=== PATIENT | female | born 1975 | race Caucasian/White ===

== ENCOUNTER 2016-11-19 11:35 | Emergency (ER) | payer OTHER, SELFPAY ==
[2016-11-19] MEDS ORDERED: TORAdol 30 mg Injection IM ONE (11:48)
[2016-11-19] MEDS ORDERED: TORAdol 30 mg Injection ONE (11:56)
--- NOTE | 2016-11-19 12:16 | ERPHSYRPT ---
- History of Present Illness Time Seen by Provider: 11/19/16 11:42 Source: patient, family Exam Limitations: no limitations Patient Subjective Stated Complaint: pt co pain to right knee for a couple days , she states that knee gave out and fell, she denies any injury from fall, pt arrived per w/c Triage Nursing Assessment: pt alert and in no distress, resp easy , able to transfer to bed, pain to lower part of knee, no swelling or redness Physician History: the patient was walking this am when her right knee gave out; she did not fall as she caught herself; she has chronic right knee pain from osteoarthritis; no known injuyr; now some pain in right hip as well; no other injury or complaints ; right handed Method of Injury: twisted Occurred: just prior to arrival, this morning Quality: constant, aching Severity of Pain-Max: severe Severity of Pain-Current: moderate Lower Extremities Pain: hip: right, knee: right Modifying Factors: Improves With: immobilization (helps), movement (affravates KNee > hip) Associated Symptoms: unable to bear weight (without pain) Allergies/Adverse Reactions: No Known Drug Allergies Allergy (Verified 11/19/16 11:49) Home Medications: Metformin HCl 500 mg [Glucophage 500 MG] 500 mg PO BID 04/11/13 [History] Glyburide [Diabeta] 2.5 mg PO DAILY 05/08/15 [History] Metoprolol Tartrate 25 mg [Lopressor 25MG Tab] 25 mg PO DAILY 09/09/15 [ History] Simvastatin 40 mg [Zocor 40 mg] 40 mg PO DAILY 09/09/15 [History] Hx Tetanus, Diphtheria Vaccination/Date Given: Yes Hx Influenza Vaccination/Date Given: No Hx Pneumococcal Vaccination/Date Given: No - Review of Systems Constitutional: No Symptoms Eyes: No Symptoms Ears, Nose, & Throat: No Symptoms Respiratory: No Cough, No Dyspnea, No Wheezing Cardiac: No Chest Pain, No Palpitations Abdominal/Gastrointestinal: No Abdominal Pain, No Nausea, No Diarrhea Genitourinary Symptoms: No Symptoms Musculoskeletal: Injury, Joint Pain (right knee) Skin: No Symptoms Neurological: No Symptoms Psychological: No Symptoms Endocrine: Polyuria, Polydipsia, No Goiter Hematologic/Lymphatic: No Symptoms Immunological/Allergic: No Symptoms - Past Medical History Pertinent Past Medical History: Yes Neurological History: No Pertinent History ENT History: No Pertinent History Cardiac History: No Pertinent History Respiratory History: No Pertinent History Endocrine Medical History: Diabetes Type II Musculoskeletal History: Arthritis GI Medical History: No Pertinent History History: Other Psycho-Social History: Anxiety, Depression Female Reproductive Disorders: No Pertinent History Other Medical History: URETHERAL DIVERTICULITIS-SEES A PHYSICIAN IN [facility] FOR THIS. - Past Surgical History Past Surgical History: Yes Neuro Surgical History: No Pertinent History Cardiac: Cardiac Catheterization Respiratory: No Pertinent History Gastrointestinal: Bowel Surgery, Cholecystectomy Genitourinary: Other Musculoskeletal: No Pertinent History Female Surgical History: No Pertinent History Other Surgical History: urethral diverticulistis - Social History Smoking Status: Current some day smoker How long have you smoked: 15 Exposure to second hand smoke: Yes Alcohol Use: Socially Drug Use: none Patient Lives Alone: No Significant Family History: diabetes, hypertension - Female History Hx Last Menstrual Period: 6 years Hx Now: No - Nursing Vital Signs Nursing Vital Signs: Initial Vital Signs Temperature 97.2 F Temperature Source Oral Pulse Rate 97 Respiratory Rate 18 Blood Pressure [Right Arm] 102/76 Pain Intensity 6 - Physical Exam General Appearance: moderate distress (pain right knee), alert, obese (mild) Eyes, Ears, Nose, Throat Exam: normal ENT inspection, TMs normal, pharynx normal , moist mucous membranes Neck Exam: normal inspection, non-tender, supple, full range of motion, No meningismus, No JVD Cardiovascular/Respiratory Exam: chest non-tender, normal breath sounds, regular rate/rhythm, heart sounds normal, no JVD, no M/R/G, no respiratory distress Gastrointestinal/Abdominal Exam: non-tender, soft, no organomegaly Back Exam: normal inspection, normal range of motion, No CVA tenderness Hips Exam: right: soft tissue tenderness (mild lateral only), left: non-tender, bilateral: normal inspection, normal range of motion, no evidence of injury Legs Exam: right leg: soft tissue tenderness (post high), left leg: non-tender, bilateral leg: normal inspection, normal range of motion, no evidence of injury , other (no shortening or external roataion) Knees Exam: right knee: bone tenderness (anterior and lateral), pain, soft tissue tenderness, left knee: non-tender, bilateral knee: normal inspection, normal range of motion, no evidence of injury Ankle Exam: bilateral ankle: non-tender, normal inspection, normal range of motion, no evidence of injury Foot Exam: bilateral foot: non-tender, normal inspection, normal range of motion , no evidence of injury DTR - Lower Extremities Exam: knee (R): 4+, knee (L): 4+ Neuro/Tendon Exam: normal sensation, normal motor functions, normal tendon functions, responds to pain, no evidence tendon injury Mental Status Exam: alert, oriented x 3, cooperative Skin Exam: normal color, warm, dry, No rash SpO2 Interpretation: normal SpO2: 98 Oxygen Delivery: Room Air Procedures - Splinting Location of Splint: Right, Knee Type of Splint: Other (knee immobilyzer) Splint Applied By: ED Nurse Pre-Proc Neuro Vasc Exam: normal Post-Proc Neuro Vasc Exam: neurovascular intact - Course Nursing assessment & vital signs reviewed: Yes Ordered Tests: Active Orders 24 hr Category Date Time Status Cold Application STAT Care 11/19/16 11:48 Active Crutches STAT Care 11/19/16 12:09 Ordered Re-Check Vital Signs STAT Care 11/19/16 11:48 Active Splint STAT Care 11/19/16 12:09 Ordered KNEE (3 VIEWS) Stat Exams 11/19/16 11:48 Ordered Medication Summary Discontinued Medications Generic Name Dose Route Start Last Admin Trade Name Aryan PRN Reason Stop Dose Admin Ketorolac Tromethamine 60 mg 11/19/16 11:48 11/19/16 12:00 Toradol 30 Mg Injection IM 11/19/16 11:49 60 mg STAT ONE Administration Ketorolac Tromethamine Confirm 11/19/16 11:56 Toradol 30 Mg Injection Administered 11/19/16 11:57 Dose 60 mg .ROUTE .STK-MED ONE - Progress Progress: improved (after meds), re-examined (after xr) Progress Note: 11/19/16 12:17 reviewed xr findings and results; treatment plan and instructions given Counseled pt/family regarding: diagnosis, rad results, smoking cessation - Departure Time of Disposition: 12:18 Departure Disposition: Home Clinical Impression: Strain of right knee Condition: Stable Critical Care Time: No Instructions: Knee Sprain Additional Instructions: Acute Sprain Instructions lower extremity; R.I.C.E.; wear splint/immobilyzer as directed; observe for neuro-vascular compromise ( change in color; increased pain; cold to touch); Use crutches, walker, cane as directed. FU LMD/ specialist as directed; call for appointment as directed; Return if problems; Take meds as prescribed. Follow-up with family doctor as directed. Call for appointment. Return if any problems. If you smoke please stop. Call or follow up with your family doctor for assistance if you need it to stop. Please wear your seatbelt when driving. Have a nice day. Thank you for allowing us to participate in your care today. :o) Dr Bert Coleman Prescriptions: Naproxen Sodium [Anaprox Ds] 550 mg PO Q8H PRN PRN #20 tablet PRN Reason: Pain
--- NOTE | 2016-11-19 12:18 | XRAY ---
Indication: Right knee pain following injury. Comparison: April 11, 2013 3 views of the right knee demonstrates stable minimal medial joint space narrowing. No new/acute bony, articular, or soft tissue abnormalities.
[2016-11-19 12:23] VITALS: BP 138/67
[2016-11-19 12:34] VITALS: PULSE 78; O2SAT 97
== END 2016-11-19 12:34 | disposition home or self-care (01) ==
LOC: ED 11:35
DX: S83.91XA Sprain of unspecified site of right knee, initial encounter (principal); M17.11 Unilateral primary osteoarthritis, right knee; E11.9 Type 2 diabetes mellitus without complications; Z79.84 Long term (current) use of oral hypoglycemic drugs
CPT/HCPCS: 73562; 96372; 99282; 99283; 99284; J1885; L1830

== ENCOUNTER → 2017-12-02 | Emergency (ER) | payer OTHER ==
[~2017-12-02] MED LIST: Pepcid 20 MG VIAL IV ONE; Sodium Chloride 0.9% 1000 ML 1,000 ML IV STA; Sodium Chloride 0.9% 1000 ML 1,000 ML ONE; Zofran 4 MG/2 ML VIAL IV ONE; Zofran 4 MG/2 ML VIAL ONE
--- NOTE | 2017-12-02 12:25 | ERPHSYRPT ---
- History of Present Illness Time Seen by Provider: 12/02/17 12:19 Source: patient Exam Limitations: no limitations Patient Subjective Stated Complaint: hyperglycemia Triage Nursing Assessment: pt to er c/o hypeglycemia, fsbs this am at approx 0800 375, normal is in the 200's, started Victoza yesterday, today feels hot flushed, cold sweats, nause, no vomiting, alert and oriented, acting appropriately per family Physician History: The patient is an obese 42-year-old female complaining of elevated blood glucose , nausea, and vomiting. The patient has type 2 diabetes and has been on metformin. Her blood sugars have been consistently in the 200s so her doctor added Victoza yesterday. The patient took the new medicine at noon yesterday and by later that day her blood sugars had increased into the 300s. Last night she had nausea and vomiting. She has some mild abdominal pain in the epigastric region now. Her past medical history is significant for diabetes. Timing/Duration: today Severity: moderate Modifying Factors: Improves With: nothing Associated Symptoms: nausea, vomiting, abdominal pain Allergies/Adverse Reactions: No Known Drug Allergies Allergy (Verified 11/19/16 11:49) Home Medications: Metformin HCl 500 mg [Glucophage 500 MG] 500 mg PO BID 04/11/13 [History] Liraglutide [Victoza 2-Jay] 1.8 12/02/17 [History] Hx Tetanus, Diphtheria Vaccination/Date Given: No Hx Influenza Vaccination/Date Given: Yes Hx Pneumococcal Vaccination/Date Given: Yes - Review of Systems Constitutional: No Fever, No Chills Eyes: No Symptoms Ears, Nose, & Throat: No Symptoms Respiratory: No Cough, No Dyspnea Cardiac: No Chest Pain, No Edema, No Syncope Abdominal/Gastrointestinal: Abdominal Pain, Nausea, Vomiting, No Diarrhea Genitourinary Symptoms: No Dysuria Musculoskeletal: No Back Pain, No Neck Pain Skin: No Rash Neurological: No Dizziness, No Focal Weakness, No Sensory Changes Psychological: No Symptoms Endocrine: No Symptoms Hematologic/Lymphatic: No Symptoms Immunological/Allergic: No Symptoms All Other Systems: Reviewed and Negative - Past Medical History Pertinent Past Medical History: Yes Neurological History: Migraines ENT History: No Pertinent History Cardiac History: No Pertinent History Respiratory History: No Pertinent History Endocrine Medical History: Diabetes Type II Musculoskeletal History: No Pertinent History GI Medical History: Diverticulosis, Gallbladder Disease History: No Pertinent History Psycho-Social History: No Pertinent History Female Reproductive Disorders: No Pertinent History Other Medical History: URETHERAL DIVERTICULITIS-SEES A PHYSICIAN IN [facility] FOR THIS. - Past Surgical History Past Surgical History: Yes Neuro Surgical History: No Pertinent History Cardiac: No Pertinent History Respiratory: No Pertinent History Gastrointestinal: Cholecystectomy Genitourinary: Other Musculoskeletal: No Pertinent History Female Surgical History: No Pertinent History Other Surgical History: urethral diverticulistis - Social History Smoking Status: Current every day smoker How long have you smoked: 15 Exposure to second hand smoke: No Alcohol Use: Socially Drug Use: none Patient Lives Alone: No Significant Family History: diabetes, hypertension - Female History Hx Now: No - Nursing Vital Signs Nursing Vital Signs: Initial Vital Signs Temperature 97.7 F 12/02/17 11:11 Pulse Rate 78 12/02/17 11:11 Respiratory Rate 20 12/02/17 11:11 Blood Pressure 124/97 12/02/17 11:11 O2 Sat by Pulse Oximetry 97 12/02/17 11:11 Pain Scale Pain Intensity 8 - Physical Exam General Appearance: moderate distress, obese Eye Exam: PERRL/EOMI, eyes nml inspection Ears, Nose, Throat Exam: normal ENT inspection, TMs normal, pharynx normal, moist mucous membranes Neck Exam: normal inspection, non-tender, supple, full range of motion Respiratory Exam: normal breath sounds, lungs clear, No respiratory distress Cardiovascular Exam: regular rate/rhythm, normal heart sounds, normal peripheral pulses Gastrointestinal/Abdomen Exam: tenderness Pelvic Exam: not done Rectal Exam: not done Back Exam: normal inspection, normal range of motion, No CVA tenderness, No vertebral tenderness Extremity Exam: normal inspection, normal range of motion, pelvis stable Neurologic Exam: alert, oriented x 3, cooperative, normal mood/affect, nml cerebellar function, nml station & gait, sensation nml, No motor deficits Skin Exam: normal color, warm, dry, No rash Lymphatic Exam: No adenopathy SpO2 Interpretation: normal SpO2: 98 Oxygen Delivery: Room Air - Radiology Exams Chest X-ray Interpretation: Teleradiologist Report, Negative (per Dr Clarke.) Abdomen X-ray Interpretation: Teleradiologist Report, Negative (per Dr Clarke) Ordered Tests: Active Orders 24 hr Category Date Time Status IV Insertion STAT Care 12/02/17 12:24 Active OBSTR/ACUTE ABDOMEN SERIES Stat Exams 12/02/17 12:24 Completed AMYLASE Stat Lab 12/02/17 12:45 Completed CBC W DIFF Stat Lab 12/02/17 12:45 Completed CMP Stat Lab 12/02/17 12:45 Completed LIPASE Stat Lab 12/02/17 12:45 Completed Lactic Acid Stat Lab 12/02/17 12:24 Results UA W/ MICROSCOPIC Stat Lab 12/02/17 12:24 Results Medication Summary Discontinued Medications Generic Name Dose Route Start Last Admin Trade Name Freq PRN Reason Stop Dose Admin Famotidine 20 mg 12/02/17 12:24 12/02/17 12:36 Pepcid 20 Mg Vial IV 12/02/17 12:25 20 mg STAT ONE Administration Famotidine Confirm 12/02/17 12:33 Pepcid 20 Mg Vial Administered 12/02/17 12:34 Dose 20 mg IV .STK-MED ONE Sodium Chloride 1,000 mls @ 999 mls/hr 12/02/17 12:24 12/02/17 12:40 Sodium Chloride 0.9% 1000 Ml IV 12/02/17 13:24 999 mls/hr .Q1H1M STA Administration Sodium Chloride Confirm 12/02/17 12:33 Sodium Chloride 0.9% 1000 Ml Administered 12/02/17 12:34 Dose 1,000 mls @ ud .ROUTE .STK-MED ONE Ondansetron HCl 4 mg 12/02/17 12:24 12/02/17 12:40 Zofran 4 Mg/2 Ml Vial IV 12/02/17 12:25 4 mg STAT ONE Administration Ondansetron HCl Confirm 12/02/17 12:34 Zofran 4 Mg/2 Ml Vial Administered 12/02/17 12:35 Dose 4 mg .ROUTE .STK-MED ONE Lab/Rad Data: Laboratory Result Diagrams 12/02/17 12:45 12/02/17 12:45 Laboratory Results 12/02/17 12/02/17 12/02/17 Range/Units 12:45 12:45 12:24 WBC 8.1 (4.0-10.5) K/mm3 RBC 5.55 H (4.1-5.4) M/mm3 Hgb 16.0 (12.0-16.0) gm/dl Hct 47.4 H (35-47) % MCV 85.4 (78-100) fl MCH 28.8 (26-32) pg MCHC 33.8 (32-36) g/dl RDW 13.4 (11.5-14.0) % Plt Count 304 (150-450) K/mm3 MPV 10.1 H (6-9.5) fl Gran % 61.3 (36.0-66.0) % Lymphocytes % 30.3 (24.0-44.0) % Monocytes % 6.8 (0.0-12.0) % Eosinophils % 1.2 (0.00-5.0) % Basophils % 0.4 (0.0-0.4) % Basophils # 0.03 (0-0.4) Sodium 136 (136-145) mEq/L Potassium 4.1 (3.5-5.1) mEq/L Chloride 99 (98-107) mEq/L Carbon Dioxide 24.0 (21-32) mEq/L Anion Gap 16.9 H (5-15) MEQ/L BUN 14 (9-20) mg/dL Creatinine 0.81 (0.55-1.30) mg/dl Estimated GFR > 60 ML/MIN Glucose 330 H (70-110) MG/DL Lactic Acid 2.2 H (0.4-2.0) Calcium 9.4 (8.5-10.1) mg/dL Total Bilirubin 0.40 (0.2-1.0) mg/dL AST 39 H (15-37) U/L ALT 65 (12-78) U/L Alkaline Phosphatase 119 H (46-116) U/L Serum Total Protein 7.9 (6.4-8.2) gm/dL Albumin 3.8 (3.4-5.0) g/dL Amylase 37 (25-115) U/L Lipase 192 (73-393) U/L Ur Collection Type Urine Color (YELLOW) Urine Appearance (CLEAR) Urine pH (5-6) Ur Specific [place] (1.005-1.025) Urine Protein (Negative) Urine Ketones (NEGATIVE) Urine Blood (0-5) Ifeanyi/ul Urine Nitrite (NEGATIVE) Urine Bilirubin (NEGATIVE) Urine Urobilinogen (0-1) mg/dL Ur Leukocyte Esterase (NEGATIVE) Urine Culture Reflexed Urine Glucose (NEGATIVE) mg/dL Specimen Received 12/02/17 Range/Units 12:24 WBC (4.0-10.5) K/mm3 RBC (4.1-5.4) M/mm3 Hgb (12.0-16.0) gm/dl Hct (35-47) % MCV (78-100) fl MCH (26-32) pg MCHC (32-36) g/dl RDW (11.5-14.0) % Plt Count (150-450) K/mm3 MPV (6-9.5) fl Gran % (36.0-66.0) % Lymphocytes % (24.0-44.0) % Monocytes % (0.0-12.0) % Eosinophils % (0.00-5.0) % Basophils % (0.0-0.4) % Basophils # (0-0.4) Sodium (136-145) mEq/L Potassium (3.5-5.1) mEq/L Chloride (98-107) mEq/L Carbon Dioxide (21-32) mEq/L Anion Gap (5-15) MEQ/L BUN (9-20) mg/dL Creatinine (0.55-1.30) mg/dl Estimated GFR ML/MIN Glucose (70-110) MG/DL Lactic Acid (0.4-2.0) Calcium (8.5-10.1) mg/dL Total Bilirubin (0.2-1.0) mg/dL AST (15-37) U/L ALT (12-78) U/L Alkaline Phosphatase (46-116) U/L Serum Total Protein (6.4-8.2) gm/dL Albumin (3.4-5.0) g/dL Amylase (25-115) U/L Lipase (73-393) U/L Ur Collection Type CLEAN CATCH Urine Color YELLOW (YELLOW) Urine Appearance CLEAR (CLEAR) Urine pH 5.0 (5-6) Ur Specific [place] 1.025 (1.005-1.025) Urine Protein NEGATIVE (Negative) Urine Ketones NEGATIVE (NEGATIVE) Urine Blood NEGATIVE (0-5) Ifeanyi/ul Urine Nitrite NEGATIVE (NEGATIVE) Urine Bilirubin NEGATIVE (NEGATIVE) Urine Urobilinogen NORMAL (0-1) mg/dL Ur Leukocyte Esterase TRACE (NEGATIVE) Urine Culture Reflexed Pending Urine Glucose 500 (NEGATIVE) mg/dL Specimen Received 12-02-17 1400 - Progress Progress: improved Progress Note: 12/02/17 14:23 After NS 1 L, BG is 296. Counseled pt/family regarding: lab results, diagnosis, need for follow-up - Departure Time of Disposition: 14:23 Departure Disposition: Home Clinical Impression: Diabetes Condition: Stable Critical Care Time: No Referrals: INGRIS ARMSTRONG, RELATIONS LIAISON [Primary Care Provider] - Additional Instructions: You have an episode of elevated blood glucose and vomiting. This may be related to the recent addition of Victoza but this is not clear at this time. You were given Zofran 4 mg and fluids by IV in the ER. For the next few days stop taking the toes a but continue with metformin. Take Zofran 4 mg ODT every 6 hours as needed for nausea and vomiting. Follow-up either tomorrow or on Wednesday with her primary medical doctor. Prescriptions: Ondansetron ODT 4 MG [Zofran Odt 4 mg] 1 tab PO Q6H PRN PRN #10 tab.rapdis PRN Reason: Nausea/Vomiting
[2017-12-02 12:53] LABS: Lactic Acid 2.2 (0.4-2.0)
[2017-12-02 13:02] LABS: BASOPHIL % 0.4 % (0.0-0.4); Basophil (Absolute #) 0.03 (0-0.4); Eosinophil % 1.2 % (0.00-5.0); Granulocyte Absolute (ANC) 4.98 (1.4-6.9); Granulocytes % 61.3 % (36.0-66.0); Hematocrit 47.4 % (35-47); Lymphocyte (Absolute #) 2.46 (1.0-4.6); Lymphocytes % 30.3 % (24.0-44.0); Mean Cell Volume 85.4 fl (78-100); Mean Corpuscular Hemoglobin 28.8 pg (26-32); Mean Corpuscular Hgb Concent. 33.8 g/dl (32-36); Mean Platelet Volume 10.1 fl (6-9.5); Monocyte (Absolute #) 0.55 (0.0-1.3); Monocytes % 6.8 % (0.0-12.0); Platelet Count 304 K/mm3 (150-450); Red Blood Count 5.55 M/mm3 (4.1-5.4); Red Cell Distribution Width 13.4 % (11.5-14.0); White Blood Count 8.1 K/mm3 (4.0-10.5)
--- NOTE | 2017-12-02 13:23 | XRAY ---
Indication: Vomiting. Comparison: Chest exam February 17, 2013. 2 views of the abdomen nonacute and nonobstructed with little fecal debris in the left hemicolon. Cholecystectomy clips and IUD in situ. Remaining solid organs and osseous structures unremarkable. Single PA chest again demonstrates normal heart, lungs, and bony thorax. Impression: Negative abdomen. Stable normal 1 view chest.
[2017-12-02 13:59] LABS: ALBUMIN 3.8 g/dL (3.4-5.0); ALKALINE PHOSPHATASE 119 U/L (46-116); AMYLASE 37 U/L (25-115); ANION GAP 16.9 MEQ/L (5-15); BLOOD UREA NITROGEN 14 mg/dL (9-20); CHLORIDE 99 mEq/L (98-107); Calcium 9.4 mg/dL (8.5-10.1); Creatinine 1 0.81 mg/dl (0.55-1.30); EST GLOMERULAR FILTRATION RATE > 60 ML/MIN; Glucose 330 MG/DL (70-110); LIPASE 192 U/L (73-393); Potassium 4.1 mEq/L (3.5-5.1); SGOT/AST 39 U/L (15-37); SGPT/ALT 65 U/L (12-78); SODIUM 136 mEq/L (136-145); Total Protein 7.9 gm/dL (6.4-8.2)
[2017-12-02 14:02] LABS: Appearance CLEAR (CLEAR); Leukocyte Esterase TRACE (NEGATIVE); Nitrite NEGATIVE (NEGATIVE); Specific Gravity 1.025 (1.005-1.025)
[2017-12-02 14:03] LABS: Bilirubin NEGATIVE (NEGATIVE); Blood NEGATIVE Ery/ul (0-5); Glucose 500 mg/dL (NEGATIVE); Ketones NEGATIVE (NEGATIVE); Protein,Urine Dip NEGATIVE (Negative); Urobilinogen NORMAL mg/dL (0-1)
[2017-12-02 14:24] LABS: Bacteria FEW /HPF (NEGATIVE); Epithelial Cells FEW /HPF (FEW); Mucus SLIGHT /HPF (NEGATIVE)
[2017-12-02 14:27] VITALS: O2SAT 98
[2017-12-02 14:50] VITALS: BP 122/68; PULSE 64
== END | disposition home or self-care (01) ==
LOC: ED 10:59
DX: E11.9 Type 2 diabetes mellitus without complications (principal); R11.2 Nausea with vomiting, unspecified; Z79.899 Other long term (current) drug therapy; R10.9 Unspecified abdominal pain; Z79.84 Long term (current) use of oral hypoglycemic drugs
CPT/HCPCS: 36000; 36415; 74022; 80053; 81000; 82150; 82962; 83605; 83690; 85025; 87086; 96360; 96374; 96375; 99284; J2405

== ENCOUNTER 2018-02-23 09:32 | Inpatient (IN) | payer OTHER ==
[2018-02-23] MEDS ORDERED: Sodium Chloride 0.9% 1000 ML 1,000 ML IV SCH (10:00)
[2018-02-23] MEDS ORDERED: Levofloxacin 500MG/100ML D5W 500 MG/100 ML BAG IV SCH ×2 (10:00→23:30)
[2018-02-23] MEDS: Lactated Ringers 1,000 ML IV SCH ×2 (10:23→19:42)
[2018-02-23] MEDS: Zofran 4 MG/2 ML VIAL IV PRN ×3 (10:23→23:22)
[2018-02-23 10:38] LABS: BASOPHIL % 0.7 % (0.0-0.4); Basophil (Absolute #) 0.04 (0-0.4); Eosinophil % 0.5 % (0.00-5.0); Eosinophil (Absolute #) 0.03 (0-0.5); Granulocyte Absolute (ANC) 3.17 (1.4-6.9); Granulocytes % 51.7 % (36.0-66.0); Hematocrit 47.2 % (35-47); Hemoglobin 16.7 gm/dl (12.0-16.0); Lymphocyte (Absolute #) 2.11 (1.0-4.6); Lymphocytes % 34.5 % (24.0-44.0); Mean Cell Volume 82.2 fl (78-100); Mean Corpuscular Hgb Concent. 35.4 g/dl (32-36); Mean Platelet Volume 9.5 fl (6-9.5); Monocyte (Absolute #) 0.77 (0.0-1.3); Monocytes % 12.6 % (0.0-12.0); Platelet Count 280 K/mm3 (150-450); Red Blood Count 5.74 M/mm3 (4.1-5.4); Red Cell Distribution Width 13.4 % (11.5-14.0); White Blood Count 6.1 K/mm3 (4.0-10.5)
[2018-02-23 11:47] LABS: ALBUMIN 3.6 g/dL (3.5-5.0); ALKALINE PHOSPHATASE 115 U/L (38-126); AMYLASE 31 U/L (30-110); ANION GAP 14.4 MEQ/L (5-15); BLOOD UREA NITROGEN 17 mg/dL (7-17); CHLORIDE 106 mmol/L (98-107); Calcium 8.5 mg/dL (8.4-10.2); Carbon Dioxide 19 mmol/L (22-30); Creatinine 1 0.62 mg/dL (0.52-1.04); Glucose 283 mg/dL (74-106); LIPASE 72 U/L (23-300); Potassium 3.6 mmol/L (3.5-5.1); SGOT/AST 32 U/L (14-36); SGPT/ALT 48 U/L (0-35); SODIUM 136 mmol/L (137-145); Total Protein 6.5 g/dL (6.3-8.2)
--- NOTE | 2018-02-23 12:07 | XRAY ---
Indication: Abdominal pain, nausea, and vomiting. Comparison: December 02, 2017. 2 views of the abdomen demonstrates nonspecific nonobstructed bowel gas pattern again with cholecystectomy clips and IUD in situ. Query left mid abdomen small bowel loop and transverse colon mild wall thickening with minimal fluid leveling possible enterocolitis. No focal bowel dilatatio or free air. Solid organs and osseous structures unremarkable. Lung bases clear. Impression: Query left mid abdomen small bowel and transverse colon bowel wall thickening with fluid leveling. Rule out enterocolitis.
[2018-02-23] MEDS ORDERED: Ativan 1 MG PO PRN (12:33)
[2018-02-23 13:34] LABS: Appearance CLEAR (CLEAR); Bacteria MODERATE /HPF (NEGATIVE); Bilirubin NEGATIVE (NEGATIVE); Blood NEGATIVE Ery/ul (0-5); Epithelial Cells FEW /HPF (FEW); Glucose 50 mg/dL (NEGATIVE); Ketones NEGATIVE (NEGATIVE); Leukocyte Esterase TRACE (NEGATIVE); Nitrite NEGATIVE (NEGATIVE); Protein,Urine Dip TRACE (Negative); Urobilinogen NORMAL mg/dL (0-1)
[2018-02-23] MEDS: NORCO 5/325 MG PO PRN (14:34)
[2018-02-23] MEDS ORDERED: Lexapro 10 MG PO SCH (14:45)
--- NOTE | 2018-02-23 16:02 | PCM.HP ---
History of Present Illness - Chief Complaint Chief Complaint: N/V/D, DM, Dehydration History of Present Illness: is a 43 year old female with diabetes who came to [facility] today complaining of 3d of suprapubic abdominal pain and diarrhea. Pain is constant, whether having diarrhea or not. Diarrhea is watery and copious, "hundreds" of times. Has had 4-5 episodes since admission today. Was incontinent of stool. no fever. Has not been taking in much po and has not been urinating much ( first urination today was after admission/IV fluids). She started vomiting last night. Abd xr was suspicious for enterocolitis. - Review of Systems Constitutional: Fatigue, Weakness Abdominal/Gastrointestinal: Abdominal Pain, Nausea, Vomiting, Diarrhea Neurological: Dizziness Psychological: Anxiety, Depression, No Suicidal Ideations All Other Systems: Reviewed and Negative Medications & Allergies Home Medications: Home Medication List Escitalopram Oxalate [Lexapro] 5 mg PO DAILY 02/23/18 [History Confirmed ] Insulin Aspart [Novolog Flexpen] 0 mg SQ UD 02/23/18 [History Confirmed 02/23/18 ] Lorazepam [Ativan] 1 mg PO Q12H PRN PRN 02/23/18 [History Confirmed 02/23/18] Metformin HCl [Glucophage] 1,000 mg PO BID 02/23/18 [History Confirmed 02/23/18] Allergies/Adverse Reactions: Allergies Allergy/AdvReac Type Severity Reaction Status Date / Time No Known Drug Allergies Allergy Verified 02/23/18 10:04 - Past Medical History Past Medical History: Yes Neurological History: Migraines ENT History: No Pertinent History Cardiac History: No Pertinent History Respiratory History: No Pertinent History Endocrine Medical History: Diabetes Type II Musculoskelatal History: No Pertinent History GI Medical History: Diverticulosis, Gallbladder Disease History: No Pertinent History Pyscho-Social History: No Pertinent History Reproductive Disorders: No Pertinent History Comment: URETHERAL DIVERTICULITIS-SEES A PHYSICIAN IN [facility] FOR THIS. - Female History Hx Last Menstrual Period: 7 years ago Are you now?: No - Past Surgical History Past Surgical History: Yes Neuro Surgical History: No Pertinent History Cardiac History: No Pertinent History Respiratory Surgery: No Pertinent History GI Surgical History: Cholecystectomy Genitourinary Surgical Hx: Other Musculskeletal Surgical Hx: No Pertinent History Female Surgical History: No Pertinent History Other Surgical History: urethral diverticulitis - Social History Smoking Status: Current some day smoker How long have you smoked: 20 years Exposure to second hand smoke: No Alcohol: None Drug Use: none Significant Family History: diabetes, hypertension - Physical Exam Vital Signs: Vital Signs - 24 hr Temp Pulse Resp BP Pulse Ox 02/23/18 11:32 98.3 F 84 16 127/72 98 02/23/18 10:28 98.2 F 86 16 127/77 02/23/18 10:00 98.2 F 86 16 127/77 98 General Appearance: mild distress, alert, obese Neurologic Exam: oriented x 3, cooperative Eye Exam: eyes nml inspection Ears, Nose, Throat Exam: dry mucous membranes Neck Exam: normal inspection Respiratory Exam: normal breath sounds, lungs clear, No crackles/rales, No rhonchi, No wheezing Cardiovascular Exam: regular rate/rhythm, normal heart sounds, No murmur Gastrointestinal/Abdomen Exam: soft, tenderness (generalied ttp), guarding ( suprapubic), other (hyperactive bowel sounds.), No mass, No rebound Back Exam: normal inspection, No rash Extremity Exam: normal inspection, No pedal edema, No swelling Skin Exam: normal color, warm, dry, No rash Results - Labs Lab/Micro Results: Accuchecks Accucheck Value: 285 Lab Results-Last 24 Hours 02/23/18 02/23/18 02/23/18 Range/Units 10:20 10:20 10:20 WBC 6.1 (4.0-10.5) K/mm3 RBC 5.74 H (4.1-5.4) M/mm3 Hgb 16.7 H (12.0-16.0) gm/dl Hct 47.2 H (35-47) % MCV 82.2 (78-100) fl MCH 29.0 (26-32) pg MCHC 35.4 (32-36) g/dl RDW 13.4 (11.5-14.0) % Plt Count 280 (150-450) K/mm3 MPV 9.5 (6-9.5) fl Gran % 51.7 (36.0-66.0) % Eos # (Auto) 0.03 (0-0.5) Absolute Lymphs (auto) 2.11 (1.0-4.6) Absolute Monos (auto) 0.77 (0.0-1.3) Lymphocytes % 34.5 (24.0-44.0) % Monocytes % 12.6 H (0.0-12.0) % Eosinophils % 0.5 (0.00-5.0) % Basophils % 0.7 (0.0-0.4) % Absolute Granulocytes 3.17 (1.4-6.9) Basophils # 0.04 (0-0.4) Sodium 136 L (137-145) mmol/L Potassium 3.6 (3.5-5.1) mmol/L Chloride 106 (98-107) mmol/L Carbon Dioxide 19 L (22-30) mmol/L Anion Gap 14.4 (5-15) MEQ/L BUN 17 (7-17) mg/dL Creatinine 0.62 (0.52-1.04) mg/dL Estimated GFR > 60.0 ML/MIN Glucose 283 H (74-106) mg/dL Lactic Acid (0.4-2.0) Calcium 8.5 (8.4-10.2) mg/dL Total Bilirubin 0.50 (0.2-1.3) mg/dL AST 32 (14-36) U/L ALT 48 H (0-35) U/L Alkaline Phosphatase 115 (38-126) U/L Serum Total Protein 6.5 (6.3-8.2) g/dL Albumin 3.6 (3.5-5.0) g/dL Amylase 31 (30-110) U/L Lipase 72 (23-300) U/L Ur Collection Type Urine Color (YELLOW) Urine Appearance (CLEAR) Urine pH (5-6) Ur Specific [place] (1.005-1.025) Urine Protein (Negative) Urine Ketones (NEGATIVE) Urine Blood (0-5) Ifeanyi/ul Urine Nitrite (NEGATIVE) Urine Bilirubin (NEGATIVE) Urine Urobilinogen (0-1) mg/dL Ur Leukocyte Esterase (NEGATIVE) Urine Microscopic WBC (0-5) /HPF Ur Epithelial Cells (FEW) /HPF Urine Bacteria (NEGATIVE) /HPF Urine Culture Reflexed (NO) Urine Glucose (NEGATIVE) mg/dL Specimen Received 02/23/18 02/23/18 Range/Units 10:33 12:36 WBC (4.0-10.5) K/mm3 RBC (4.1-5.4) M/mm3 Hgb (12.0-16.0) gm/dl Hct (35-47) % MCV (78-100) fl MCH (26-32) pg MCHC (32-36) g/dl RDW (11.5-14.0) % Plt Count (150-450) K/mm3 MPV (6-9.5) fl Gran % (36.0-66.0) % Eos # (Auto) (0-0.5) Absolute Lymphs (auto) (1.0-4.6) Absolute Monos (auto) (0.0-1.3) Lymphocytes % (24.0-44.0) % Monocytes % (0.0-12.0) % Eosinophils % (0.00-5.0) % Basophils % (0.0-0.4) % Absolute Granulocytes (1.4-6.9) Basophils # (0-0.4) Sodium (137-145) mmol/L Potassium (3.5-5.1) mmol/L Chloride (98-107) mmol/L Carbon Dioxide (22-30) mmol/L Anion Gap (5-15) MEQ/L BUN (7-17) mg/dL Creatinine (0.52-1.04) mg/dL Estimated GFR ML/MIN Glucose (74-106) mg/dL Lactic Acid 1.2 (0.4-2.0) Calcium (8.4-10.2) mg/dL Total Bilirubin (0.2-1.3) mg/dL AST (14-36) U/L ALT (0-35) U/L Alkaline Phosphatase (38-126) U/L Serum Total Protein (6.3-8.2) g/dL Albumin (3.5-5.0) g/dL Amylase (30-110) U/L Lipase (23-300) U/L Ur Collection Type VOID Urine Color YELLOW (YELLOW) Urine Appearance CLEAR (CLEAR) Urine pH 5.0 (5-6) Ur Specific [place] 1.020 (1.005-1.025) Urine Protein TRACE (Negative) Urine Ketones NEGATIVE (NEGATIVE) Urine Blood NEGATIVE (0-5) Ifeanyi/ul Urine Nitrite NEGATIVE (NEGATIVE) Urine Bilirubin NEGATIVE (NEGATIVE) Urine Urobilinogen NORMAL (0-1) mg/dL Ur Leukocyte Esterase TRACE (NEGATIVE) Urine Microscopic WBC 5-10 (0-5) /HPF Ur Epithelial Cells FEW (FEW) /HPF Urine Bacteria MODERATE (NEGATIVE) /HPF Urine Culture Reflexed YES (NO) Urine Glucose 50 (NEGATIVE) mg/dL Specimen Received 02/23/18 1239 Accuchecks Accucheck Value: 285 - Radiology Impressions Radiology Exams & Impressions: Radiology Procedures Category Date Time Status ABDOMEN 2 VIEW Routine Exams 02/23/18 10:15 Completed ABDOMEN WITH CONTRAST [CT] Routine Exams 02/23/18 14:04 Ordered - Other Procedures and Tests Respiratory Therapy 02/23/18 11:08 Smoking Cessation Education Assessment/Plan (1) Diarrhea Current Visit: Yes Status: Acute Qualifiers: Diarrhea type: unspecified type Qualified Code(s): R19.7 - Diarrhea, unspecified Assessment & Plan: Clostridium difficile test is pending. Could be inflammatory enterocolitis, vs infectious, vs diverticulitis. Await abdominal/pelvis CT to help guide antibiotic therapy (in conjuction with C. diff testing). Code(s): R19.7 - DIARRHEA, UNSPECIFIED (2) Abdominal pain Current Visit: Yes Status: Acute Onset Date: ~02/23/18 Qualifiers: Abdominal location: lower abdomen, unspecified Qualified Code(s): R10.30 - Lower abdominal pain, unspecified Code(s): R10.9 - UNSPECIFIED ABDOMINAL PAIN (3) Abnormal x-ray of abdomen Current Visit: Yes Status: Acute Onset Date: ~02/23/18 Assessment & Plan: question of enterocolitis with likely thickening of transverse colon. Code(s): R93.5 - ABN FINDINGS ON DX IMAGING OF ABD REGIONS, INC RETROPERITON (4) Dehydration Current Visit: Yes Status: Acute Onset Date: ~02/23/18 Assessment & Plan: on IV fluids. Code(s): E86.0 - DEHYDRATION (5) Hx of diverticulitis of colon Current Visit: Yes Status: Chronic Code(s): Z87.19 - PERSONAL HISTORY OF OTHER DISEASES OF THE DIGESTIVE SYSTEM (6) Urethral diverticulum Current Visit: Yes Status: Resolved Assessment & Plan: repaired surgically Code(s): N36.1 - URETHRAL DIVERTICULUM (7) Diabetes Current Visit: No Status: Chronic Qualifiers: Diabetes mellitus type: type 2 Diabetes mellitus rn long term care insulin use: with rn long term care use Diabetes mellitus complication status: without complication Qualified Code(s): E11.9 - Type 2 diabetes mellitus without complications; Z79.4 - USP (current) use of insulin; Z79.4 - terminal clerk ( current) use of insulin; Z79.4 - terminal clerk (current) use of insulin; Z79.4 - terminal clerk (current) use of insulin Code(s): E11.9 - TYPE 2 DIABETES MELLITUS WITHOUT COMPLICATIONS
[2018-02-23] MEDS: NovoLOG Insulin SQ PRN ×2 (17:03→20:23)
[2018-02-23 17:47] LABS: 027 TOX PROD PRESUMPTIVE NEGATIVE (NEGATIVE); TOXIGENIC C. DIFF ORG NEGATIVE (NEGATIVE)
[2018-02-23] MEDS: FLAGYL 500 MG IVPB 500 MG/100 ML BAG IV SCH (18:10)
[2018-02-23] MEDS ORDERED: HOLD METFORMIN PRODUCTS FOR 48 HOURS MC SCH (21:18)
[2018-02-23] MEDS ORDERED: MORPHINE SULFATE 4 MG INJ IV PRN (22:20)
[2018-02-23] MEDS: Lexapro 10 MG PO SCH (22:59)
[2018-02-24] MEDS: FLAGYL 500 MG IVPB 500 MG/100 ML BAG IV SCH ×4 (00:49→17:43)
[2018-02-24 05:51] LABS: ANION GAP 11.7 MEQ/L (5-15); BLOOD UREA NITROGEN 10 mg/dL (7-17); CHLORIDE 109 mmol/L (98-107); Calcium 8.7 mg/dL (8.4-10.2); Carbon Dioxide 23 mmol/L (22-30); Creatinine 1 0.59 mg/dL (0.52-1.04); Glucose 197 mg/dL (74-106); Potassium 3.8 mmol/L (3.5-5.1); SODIUM 140 mmol/L (137-145)
[2018-02-24 06:18] LABS: Hematocrit 40.9 % (35-47); Hemoglobin 14.3 gm/dl (12.0-16.0); Mean Cell Volume 84.3 fl (78-100); Mean Corpuscular Hemoglobin 29.5 pg (26-32); Mean Platelet Volume 9.8 fl (6-9.5); Platelet Count 238 K/mm3 (150-450); Red Blood Count 4.85 M/mm3 (4.1-5.4); Red Cell Distribution Width 13.4 % (11.5-14.0); White Blood Count 5.2 K/mm3 (4.0-10.5)
[2018-02-24] MEDS: NORCO 5/325 MG PO PRN ×2 (06:49→16:48)
[2018-02-24] MEDS: NovoLOG Insulin SQ PRN ×4 (07:35→21:56)
[2018-02-24] MEDS: Lactated Ringers 1,000 ML IV SCH ×2 (07:35→17:42)
--- NOTE | 2018-02-24 08:55 | PCM.NOTE ---
Date and Time: 02/24/18 0851 Subjective Assessment: Pt had 12 stools out in the last 12 h. She says there is now more brown color to the stools. Feeling better. Had 1603 in and 820 out over the past 12h. On CLD but wiht broth she had diarrhea. - Review of Systems Constitutional: No Fever Abdominal/Gastrointestinal: Nausea, Diarrhea Objective Exam General Appearance: no apparent distress, alert, obese Neurologic Exam: oriented x 3, cooperative Skin Exam: normal color, warm, dry, No rash Respiratory Exam: normal breath sounds, lungs clear, No crackles/rales, No rhonchi, No wheezing Cardiovascular Exam: regular rate/rhythm, normal heart sounds, No murmur Gastrointestinal/Abdomen Exam: soft, tenderness (minimal), other (hyperactive bowel sounds), No distention, No mass, No guarding, No rebound Extremity Exam: normal inspection, No pedal edema, No swelling Back Exam: normal inspection, No rash OBJECTIVE DATA Vital Signs: Vital Signs - 24 hr Temp Pulse Resp BP Pulse Ox 02/24/18 07:19 98 F 60 20 102/57 98 02/23/18 22:40 98.1 F 68 18 107/54 96 02/23/18 19:31 97.9 F 64 19 95/54 98 02/23/18 16:00 98.3 F 69 16 108/61 96 02/23/18 11:32 98.3 F 84 16 127/72 98 02/23/18 10:28 98.2 F 86 16 127/77 02/23/18 10:00 98.2 F 86 16 127/77 98 Pain Assessment - Last Documented Pain Intensity 5 Pain Scale Used 0-10 Pain Scale Intake and Output: Intake & Output 02/21/18 02/22/18 02/23/18 02/24/18 11:59 11:59 11:59 11:59 Intake Total 1603 Output Total 620 Balance 983 Weight 111 kg Lab Results: Accuchecks Date 02/23/18 Date 02/23/18 Date 02/23/18 Time 07:30 Time 16:30 Accucheck Value: 202 Accucheck Value: 197 Accucheck Value: 296 Accucheck Value: 285 Lab Results-Last 24 Hours 02/23/18 02/23/18 02/23/18 Range/Units 10:20 10:20 10:20 WBC 6.1 (4.0-10.5) K/mm3 RBC 5.74 H (4.1-5.4) M/mm3 Hgb 16.7 H (12.0-16.0) gm/dl Hct 47.2 H (35-47) % MCV 82.2 (78-100) fl MCH 29.0 (26-32) pg MCHC 35.4 (32-36) g/dl RDW 13.4 (11.5-14.0) % Plt Count 280 (150-450) K/mm3 MPV 9.5 (6-9.5) fl Gran % 51.7 (36.0-66.0) % Eos # (Auto) 0.03 (0-0.5) Absolute Lymphs (auto) 2.11 (1.0-4.6) Absolute Monos (auto) 0.77 (0.0-1.3) Lymphocytes % 34.5 (24.0-44.0) % Monocytes % 12.6 H (0.0-12.0) % Eosinophils % 0.5 (0.00-5.0) % Basophils % 0.7 (0.0-0.4) % Absolute Granulocytes 3.17 (1.4-6.9) Basophils # 0.04 (0-0.4) Sodium 136 L (137-145) mmol/L Potassium 3.6 (3.5-5.1) mmol/L Chloride 106 (98-107) mmol/L Carbon Dioxide 19 L (22-30) mmol/L Anion Gap 14.4 (5-15) MEQ/L BUN 17 (7-17) mg/dL Creatinine 0.62 (0.52-1.04) mg/dL Estimated GFR > 60.0 ML/MIN Glucose 283 H (74-106) mg/dL Lactic Acid (0.4-2.0) Calcium 8.5 (8.4-10.2) mg/dL Total Bilirubin 0.50 (0.2-1.3) mg/dL AST 32 (14-36) U/L ALT 48 H (0-35) U/L Alkaline Phosphatase 115 (38-126) U/L Serum Total Protein 6.5 (6.3-8.2) g/dL Albumin 3.6 (3.5-5.0) g/dL Amylase 31 (30-110) U/L Lipase 72 (23-300) U/L Ur Collection Type Urine Color (YELLOW) Urine Appearance (CLEAR) Urine pH (5-6) Ur Specific [place] (1.005-1.025) Urine Protein (Negative) Urine Ketones (NEGATIVE) Urine Blood (0-5) Ifeanyi/ul Urine Nitrite (NEGATIVE) Urine Bilirubin (NEGATIVE) Urine Urobilinogen (0-1) mg/dL Ur Leukocyte Esterase (NEGATIVE) Urine Microscopic WBC (0-5) /HPF Ur Epithelial Cells (FEW) /HPF Urine Bacteria (NEGATIVE) /HPF Urine Culture Reflexed (NO) Urine Glucose (NEGATIVE) mg/dL Stl C. diff Tox B Gene (NEGATIVE) C.difficile 027-NAP1-B1 (NEGATIVE) Specimen Received 02/23/18 02/23/18 02/23/18 Range/Units 10:33 12:36 16:00 WBC (4.0-10.5) K/mm3 RBC (4.1-5.4) M/mm3 Hgb (12.0-16.0) gm/dl Hct (35-47) % MCV (78-100) fl MCH (26-32) pg MCHC (32-36) g/dl RDW (11.5-14.0) % Plt Count (150-450) K/mm3 MPV (6-9.5) fl Gran % (36.0-66.0) % Eos # (Auto) (0-0.5) Absolute Lymphs (auto) (1.0-4.6) Absolute Monos (auto) (0.0-1.3) Lymphocytes % (24.0-44.0) % Monocytes % (0.0-12.0) % Eosinophils % (0.00-5.0) % Basophils % (0.0-0.4) % Absolute Granulocytes (1.4-6.9) Basophils # (0-0.4) Sodium (137-145) mmol/L Potassium (3.5-5.1) mmol/L Chloride (98-107) mmol/L Carbon Dioxide (22-30) mmol/L Anion Gap (5-15) MEQ/L BUN (7-17) mg/dL Creatinine (0.52-1.04) mg/dL Estimated GFR ML/MIN Glucose (74-106) mg/dL Lactic Acid 1.2 (0.4-2.0) Calcium (8.4-10.2) mg/dL Total Bilirubin (0.2-1.3) mg/dL AST (14-36) U/L ALT (0-35) U/L Alkaline Phosphatase (38-126) U/L Serum Total Protein (6.3-8.2) g/dL Albumin (3.5-5.0) g/dL Amylase (30-110) U/L Lipase (23-300) U/L Ur Collection Type VOID Urine Color YELLOW (YELLOW) Urine Appearance CLEAR (CLEAR) Urine pH 5.0 (5-6) Ur Specific [place] 1.020 (1.005-1.025) Urine Protein TRACE (Negative) Urine Ketones NEGATIVE (NEGATIVE) Urine Blood NEGATIVE (0-5) Ifeanyi/ul Urine Nitrite NEGATIVE (NEGATIVE) Urine Bilirubin NEGATIVE (NEGATIVE) Urine Urobilinogen NORMAL (0-1) mg/dL Ur Leukocyte Esterase TRACE (NEGATIVE) Urine Microscopic WBC 5-10 (0-5) /HPF Ur Epithelial Cells FEW (FEW) /HPF Urine Bacteria MODERATE (NEGATIVE) /HPF Urine Culture Reflexed YES (NO) Urine Glucose 50 (NEGATIVE) mg/dL Stl C. diff Tox B Gene NEGATIVE (NEGATIVE) C.difficile 027-NAP1-B1 PRESUMPTIVE NEGATIVE (NEGATIVE) Specimen Received 02/23/18 1239 02/24/18 02/24/18 Range/Units 05:33 05:33 WBC 5.2 (4.0-10.5) K/mm3 RBC 4.85 (4.1-5.4) M/mm3 Hgb 14.3 (12.0-16.0) gm/dl Hct 40.9 (35-47) % MCV 84.3 (78-100) fl MCH 29.5 (26-32) pg MCHC 35.0 (32-36) g/dl RDW 13.4 (11.5-14.0) % Plt Count 238 (150-450) K/mm3 MPV 9.8 H (6-9.5) fl Gran % (36.0-66.0) % Eos # (Auto) (0-0.5) Absolute Lymphs (auto) (1.0-4.6) Absolute Monos (auto) (0.0-1.3) Lymphocytes % (24.0-44.0) % Monocytes % (0.0-12.0) % Eosinophils % (0.00-5.0) % Basophils % (0.0-0.4) % Absolute Granulocytes (1.4-6.9) Basophils # (0-0.4) Sodium 140 (137-145) mmol/L Potassium 3.8 (3.5-5.1) mmol/L Chloride 109 H (98-107) mmol/L Carbon Dioxide 23 (22-30) mmol/L Anion Gap 11.7 (5-15) MEQ/L BUN 10 (7-17) mg/dL Creatinine 0.59 (0.52-1.04) mg/dL Estimated GFR > 60.0 ML/MIN Glucose 197 H (74-106) mg/dL Lactic Acid (0.4-2.0) Calcium 8.7 (8.4-10.2) mg/dL Total Bilirubin (0.2-1.3) mg/dL AST (14-36) U/L ALT (0-35) U/L Alkaline Phosphatase (38-126) U/L Serum Total Protein (6.3-8.2) g/dL Albumin (3.5-5.0) g/dL Amylase (30-110) U/L Lipase (23-300) U/L Ur Collection Type Urine Color (YELLOW) Urine Appearance (CLEAR) Urine pH (5-6) Ur Specific [place] (1.005-1.025) Urine Protein (Negative) Urine Ketones (NEGATIVE) Urine Blood (0-5) Ifeanyi/ul Urine Nitrite (NEGATIVE) Urine Bilirubin (NEGATIVE) Urine Urobilinogen (0-1) mg/dL Ur Leukocyte Esterase (NEGATIVE) Urine Microscopic WBC (0-5) /HPF Ur Epithelial Cells (FEW) /HPF Urine Bacteria (NEGATIVE) /HPF Urine Culture Reflexed (NO) Urine Glucose (NEGATIVE) mg/dL Stl C. diff Tox B Gene (NEGATIVE) C.difficile 027-NAP1-B1 (NEGATIVE) Specimen Received Radiology Exams: Radiology Procedures Category Date Time Status ABDOMEN 2 VIEW Routine Exams 02/23/18 10:15 Completed ABDOMEN AND PELVIS W CONTRAST [CT] Routine Exams 02/23/18 20:29 Taken Assessment/Plan (1) Diarrhea Current Visit: Yes Status: Acute Qualifiers: Diarrhea type: unspecified type Qualified Code(s): R19.7 - Diarrhea, unspecified Assessment & Plan: Some mild improvement. Infectious vs inflammatory; she is on IV flagyl and levaquin. If no increased improvement over the next 24 h would consider steroid , asacol, etc. Code(s): R19.7 - DIARRHEA, UNSPECIFIED (2) Abdominal pain Current Visit: Yes Status: Acute Onset Date: ~02/23/18 Qualifiers: Abdominal location: lower abdomen, unspecified Qualified Code(s): R10.30 - Lower abdominal pain, unspecified Assessment & Plan: improved. Code(s): R10.9 - UNSPECIFIED ABDOMINAL PAIN (3) Dehydration Current Visit: Yes Status: Acute Onset Date: ~02/23/18 Code(s): E86.0 - DEHYDRATION (4) Hx of diverticulitis of colon Current Visit: Yes Status: Chronic Code(s): Z87.19 - PERSONAL HISTORY OF OTHER DISEASES OF THE DIGESTIVE SYSTEM (5) Urethral diverticulum Current Visit: Yes Status: Resolved Code(s): N36.1 - URETHRAL DIVERTICULUM (6) Diabetes Current Visit: No Status: Chronic Qualifiers: Diabetes mellitus type: type 2 Diabetes mellitus care home insulin use: with care home use Diabetes mellitus complication status: without complication Qualified Code(s): E11.9 - Type 2 diabetes mellitus without complications; Z79.4 - FDC (current) use of insulin; Z79.4 - first assistant manager ( current) use of insulin; Z79.4 - first assistant manager (current) use of insulin; Z79.4 - FDC (current) use of insulin Assessment & Plan: watch BS, SS coverage as needed. Around 200-300. Code(s): E11.9 - TYPE 2 DIABETES MELLITUS WITHOUT COMPLICATIONS
--- NOTE | 2018-02-24 08:55 | XRAY ---
Indication: Left abdomen cramping. Nausea, vomiting, diarrhea. Multiple contiguous axial images obtained through the abdomen and pelvis using 80 cc Isovue 370 contrast. Gastrografin enteric contrast given. Comparison: None Lung bases demonstrates minimal left base fibrosis/scarring and right middle lobe calcified granuloma. No infiltrate or effusion. Heart is not enlarged. Contrasted stomach and bowel loops appear nonobstructed. Normal air-filled appendix. Previous cholecystectomy. No free fluid/air. Mild diffuse fatty liver. There are several mid abdomen centimeter/subcentimeter mesenteric nodes possible adenitis. No pathologic retroperitoneal lymphadenopathy. Uterus demonstrates IUD in situ. Remaining liver, pancreas, spleen, adrenal glands, kidneys, ureters, bladder, uterus, and aorta appear unremarkable. Osseous structures intact. Impression: 1. Scattered small mesenteric nodes possible adenitis. 2. Fatty liver. 3. Remaining CT abdomen/pelvis with contrast exam is negative. CT DI 28.13
[2018-02-24] MEDS: TORAdol 30 mg Injection IV PRN ×2 (09:29→19:39)
[2018-02-24] MEDS: Zofran 4 MG/2 ML VIAL IV PRN (09:31)
[2018-02-24] MEDS ORDERED: ESCITALOPRAM OXALATE 5 MG PO SCH (10:00)
[2018-02-24] MEDS ORDERED: Sodium Chloride 0.9% 100 ML IVPB 100 ML IV ONE (14:43)
[2018-02-24] MEDS ORDERED: Sodium Chloride 0.9% 1000 ML 1,000 ML IV STA (14:56)
[2018-02-24] MEDS: Lexapro 10 MG PO SCH (21:55)
[2018-02-24] MEDS ORDERED: Levofloxacin 500MG/100ML D5W 500 MG/100 ML BAG IV SCH (22:00)
[2018-02-25] MEDS: FLAGYL 500 MG IVPB 500 MG/100 ML BAG IV SCH ×3 (00:30→11:47)
[2018-02-25] MEDS: Lactated Ringers 1,000 ML IV SCH (05:29)
[2018-02-25 05:34] VITALS: O2SAT 93
[2018-02-25] MEDS: NovoLOG Insulin SQ PRN ×2 (07:44→11:58)
[2018-02-25] MEDS: NORCO 5/325 MG PO PRN (08:58)
[2018-02-25 09:42] LABS: ANION GAP 11.5 MEQ/L (5-15); BLOOD UREA NITROGEN 9 mg/dL (7-17); CHLORIDE 111 mmol/L (98-107); Calcium 8.4 mg/dL (8.4-10.2); Carbon Dioxide 21 mmol/L (22-30); Creatinine 1 0.54 mg/dL (0.52-1.04); Glucose 253 mg/dL (74-106); Potassium 3.4 mmol/L (3.5-5.1); SODIUM 140 mmol/L (137-145)
--- NOTE | 2018-02-25 09:42 | PCM.NOTE ---
Date and Time: 02/25/18 09 Subjective Assessment: Pt has had no diarrhea today and had 1 episode yesterday. Actually had a formed stool today. She is now having suprapubic cramping which to her feels like a UTI or when she was having issues with her urethral diverticula. Tolerating po (solid food). Urinated yesterday then no urination until this morning. - Review of Systems Constitutional: No Fever Abdominal/Gastrointestinal: Abdominal Pain Objective Exam General Appearance: mild distress, alert, obese Neurologic Exam: oriented x 3, cooperative Skin Exam: normal color, warm, dry, No rash Ears, Nose, Throat Exam: moist mucous membranes Respiratory Exam: normal breath sounds, lungs clear, No crackles/rales, No rhonchi, No wheezing Cardiovascular Exam: regular rate/rhythm, normal heart sounds, No murmur Gastrointestinal/Abdomen Exam: soft, normal bowel sounds, tenderness (suprapubic ), No distention, No guarding, No rebound Extremity Exam: normal inspection, No pedal edema, No swelling Back Exam: normal inspection, No rash OBJECTIVE DATA Vital Signs: Vital Signs - 24 hr Temp Pulse Resp BP Pulse Ox 02/25/18 08:00 97.4 F 59 L 14 96/56 93 L 02/25/18 04:00 97.4 F 59 L 14 96/56 93 L 02/25/18 00:00 97.8 F 62 16 96/56 97 02/24/18 20:00 98.0 F 61 18 123/62 97 02/24/18 15:57 97.8 F 68 20 101/63 99 02/24/18 11:17 97.8 F 68 20 101/55 97 Pain Assessment - Last Documented Pain Intensity 6 Pain Scale Used 0-10 Pain Scale Intake and Output: Intake & Output 02/22/18 02/23/18 02/24/18 02/25/18 11:59 11:59 11:59 11:59 Intake Total 1603 6525 Output Total 417 915 Balance 833 5612 Weight 111 kg Lab Results: Accuchecks Date 02/25/18 Date 02/24/18 Date 02/24/18 Date 02/24/18 Time 07:30 Time 22:05 Time 16:30 Time 11:30 Accucheck Value: 216 Accucheck Value: 245 Accucheck Value: 230 Accucheck Value: 190 Radiology Exams: Radiology Procedures Category Date Time Status ABDOMEN 2 VIEW Routine Exams 02/23/18 10:15 Completed ABDOMEN AND PELVIS W CONTRAST [CT] Routine Exams 02/23/18 20:29 Completed BLADDER [US] Urgent Exams 02/25/18 Ordered Assessment/Plan (1) Colitis Current Visit: Yes Status: Acute Assessment & Plan: on flagyl and levaquin with improvement. Code(s): K52.9 - NONINFECTIVE GASTROENTERITIS AND COLITIS, UNSPECIFIED (2) Oliguria Current Visit: Yes Status: Acute Assessment & Plan: unsure if she has an outlet obstruction vs hypovolemia. Her urine this morning is dark emy. BMP pending. Bladder u/s pending. If outlet instruction, will discuss with urology. Code(s): R34 - ANURIA AND OLIGURIA (3) Abdominal pain Current Visit: Yes Status: Acute Onset Date: ~02/23/18 Qualifiers: Abdominal location: lower abdomen, unspecified Qualified Code(s): R10.30 - Lower abdominal pain, unspecified Code(s): R10.9 - UNSPECIFIED ABDOMINAL PAIN (4) Dehydration Current Visit: Yes Status: Acute Onset Date: ~02/23/18 Code(s): E86.0 - DEHYDRATION (5) Hx of diverticulitis of colon Current Visit: Yes Status: Chronic Code(s): Z87.19 - PERSONAL HISTORY OF OTHER DISEASES OF THE DIGESTIVE SYSTEM (6) Urethral diverticulum Current Visit: Yes Status: Resolved Assessment & Plan: Surgery was 4-5 yrs ago at . Code(s): N36.1 - URETHRAL DIVERTICULUM (7) Diabetes Current Visit: No Status: Chronic Qualifiers: Diabetes mellitus type: type 2 Diabetes mellitus correction insulin use: with correction use Diabetes mellitus complication status: without complication Qualified Code(s): E11.9 - Type 2 diabetes mellitus without complications; Z79.4 - manager terminal (current) use of insulin; Z79.4 - half-way ( current) use of insulin; Z79.4 - manager terminal (current) use of insulin; Z79.4 - half-way (current) use of insulin Assessment & Plan: start 10 units of lantus; BS in low 200s. Code(s): E11.9 - TYPE 2 DIABETES MELLITUS WITHOUT COMPLICATIONS
--- NOTE | 2018-02-25 10:55 | XRAY ---
Indication: Urinary retention. Two-dimensional ultrasound of the urinary bladder performed. Comparison: None Urinary bladder evaluation is limited due to poor bladder distention with a prevoid volume 36 cc. Postvoid volume is 6 cc. Impression: Negative limited urinary bladder sonogram.
[2018-02-25 12:18] VITALS: BP 120/60; PULSE 62
--- NOTE | 2018-02-25 14:38 | PCM.DS ---
Discharge Summary Date of Admission: 02/23/18 15:57 Admitting Physician: TIFFANIE BENNETT Primary Care Provider: TIFFANIE BENNETT Allergies Allergies No Known Drug Allergies Allergy (Verified 02/23/18 10:04) Hospital Summary - Hospital Course Hospital Course: Pt admitted through directly with colitis and UTI. Hx urethral diverticulum. She was quite dehydrated initially. Had some urinary retention - bladder scan was neg. She ended up urinating well and BMP shows good renal function. She is no longer having diarrhea and is tolerating po so will discharge to home. - Vitals & Intake/Output Vital Signs: Vital Signs Temperature 98.7 F 02/25/18 12:17 Pulse Rate 62 02/25/18 12:17 Respiratory Rate 14 02/25/18 12:17 Blood Pressure 120/60 02/25/18 12:17 O2 Sat by Pulse Oximetry 93 L 02/25/18 12:17 Intake & Output: Intake & Output 02/23/18 02/24/18 02/25/18 02/26/18 11:59 11:59 11:59 11:59 Intake Total 1603 8756 2192 Output Total 770 1315 800 Balance 833 7441 1392 Weight 111 kg - Lab Result Diagrams: 02/24/18 05:33 02/25/18 09:15 Lab Results-Last 24 Hrs: Accuchecks Date 02/25/18 Date 02/25/18 Date 02/24/18 Date 02/24/18 Time 11:30 Time 07:30 Time 22:05 Time 16:30 Accucheck Value: 289 Accucheck Value: 216 Accucheck Value: 245 Accucheck Value: 230 Lab Results-Last 24 Hours 02/25/18 Range/Units 09:15 Sodium 140 (137-145) mmol/L Potassium 3.4 L (3.5-5.1) mmol/L Chloride 111 H (98-107) mmol/L Carbon Dioxide 21 L (22-30) mmol/L Anion Gap 11.5 (5-15) MEQ/L BUN 9 (7-17) mg/dL Creatinine 0.54 (0.52-1.04) mg/dL Estimated GFR > 60.0 ML/MIN Glucose 253 H (74-106) mg/dL Calcium 8.4 (8.4-10.2) mg/dL Micro Results-Entire Visit: Microbiology 02/23/18 12:36 Urine Culture - Final Urine, Void Escherichia Coli Accuchecks Date 02/25/18 Date 02/25/18 Date 02/24/18 Date 02/24/18 Time 11:30 Time 07:30 Time 22:05 Time 16:30 Accucheck Value: 289 Accucheck Value: 216 Accucheck Value: 245 Accucheck Value: 230 - Radiology Exams Ordered Rad Exams-Entire Visit: Radiology Procedures Category Date Time Status ABDOMEN AND PELVIS W CONTRAST [CT] Routine Exams 02/23/18 20:29 Completed BLADDER [US] Urgent Exams 02/25/18 10:31 Completed - Procedures and Test Procedures and Tests throughout Hospitalization: Therapy Orders & Screens 02/23/18 11:08 Smoking Cessation Education Comment: Diagnosis: N/V/D, DM, Dehydration Smoking Status: Current some day smoker How long have you smoked: 20 years Have you smoked in the past 12 months: Yes Approximately how many cigarettes per day: 1 pack q3days Do you dip or chew tobacco: No Discharge Exam General Appearance: no apparent distress, alert, other (exam done a.m. 02/25/18) Neurologic Exam: oriented x 3, cooperative Skin Exam: normal color, warm, dry, No rash Respiratory Exam: normal breath sounds, lungs clear, No crackles/rales, No rhonchi, No wheezing Cardiovascular Exam: regular rate/rhythm, normal heart sounds, No murmur Gastrointestinal/Abdomen Exam: soft, normal bowel sounds, tenderness (mild), No guarding, No rebound Extremity Exam: No pedal edema, No swelling Final Diagnosis/Problem List - Final Discharge Diagnosis/Problem (1) Colitis Current Visit: Yes Status: Acute Assessment & Plan: Home on levaquin and flagyl. much improved. (2) UTI (urinary tract infection) Current Visit: Yes Status: Acute Assessment & Plan: with positive culture, susceptible to levaquin. Finish 7d levaquin. (3) Oliguria Current Visit: Yes Status: Resolved (4) Abdominal pain Current Visit: Yes Status: Acute Onset Date: ~02/23/18 Assessment & Plan: improved. (5) Dehydration Current Visit: Yes Status: Acute Onset Date: ~02/23/18 (6) Hx of diverticulitis of colon Current Visit: Yes Status: Chronic (7) Urethral diverticulum Current Visit: Yes Status: Resolved Assessment & Plan: f/u with urology (8) Diabetes Current Visit: No Status: Chronic - Discharge Disposition: Home, Self-Care Condition: Stable Prescriptions: New Metronidazole 500 mg [Flagyl 500 MG] 500 mg PO TID #30 tablet Levofloxacin [Levaquin] 500 mg PO DAILY #4 tablet Continue Escitalopram Oxalate [Lexapro] 5 mg PO DAILY Lorazepam [Ativan] 1 mg PO Q12H PRN PRN PRN Reason: Anxiety Metformin HCl [Glucophage] 1,000 mg PO BID Insulin Aspart [Novolog Flexpen] 0 mg SQ UD Additional Instructions: No metformin x 48h after IV dye. Follow up with: TIFFANIE BENNETT [Primary Care Provider] - 1 Week
[2018-02-25] MEDS ORDERED: Lantus Insulin SQ SCH (22:00)
== END 2018-02-25 15:15 | disposition home or self-care (01) | DRG 392 ==
LOC: MED SURG 09:37 → OBSVTOIN 15:57 → MED SURG 02-24 09:46
PROVIDERS: ADMIT Family Medicine; ATTEND Family Medicine
DX: K52.9 Noninfective gastroenteritis and colitis, unspecified (principal); N39.0 Urinary tract infection, site not specified; R34 Anuria and oliguria; R10.30 Lower abdominal pain, unspecified; E86.0 Dehydration; N36.1 Urethral diverticulum; Z79.899 Other long term (current) drug therapy; E11.9 Type 2 diabetes mellitus without complications; Z79.4 Long term (current) use of insulin; Z72.0 Tobacco use; R93.5 Abnormal findings on diagnostic imaging of other abdominal regions, including retroperitoneum; Z87.19 Personal history of other diseases of the digestive system
CPT/HCPCS: 36415; 74021; 74177; 76705; 80048; 80053; 81000; 82150; 83605; 83690; 85025; 85027; 87077; 87086; 87186; 87493; 94760; J1885; J1956; J2270; J2405; A9270-GY

== ENCOUNTER 2018-09-23 12:16 | Observation (INO) | payer OTHER ==
[2018-09-23] MEDS ORDERED: BENADRYL 50 MG/ML IV ONE (12:42)
[2018-09-23] MEDS ORDERED: Zofran 4 MG/2 ML VIAL IV ONE (12:42)
[2018-09-23] MEDS ORDERED: Sodium Chloride 0.9% 1000 ML 1,000 ML IV STA (12:42)
[2018-09-23] MEDS ORDERED: Hydromorphone 1 mg/ml Ampule IV ONE (12:44)
[2018-09-23] MEDS ORDERED: BENADRYL 50 MG/ML ONE (12:46)
[2018-09-23] MEDS ORDERED: Sodium Chloride 0.9% 1000 ML 1,000 ML ONE (12:46)
[2018-09-23] MEDS ORDERED: Zofran 4 MG/2 ML VIAL ONE (12:46)
[2018-09-23 12:48] LABS: BASOPHIL % 0.3 % (0.0-0.4); Basophil (Absolute #) 0.02 (0-0.4); Eosinophil % 0.3 % (0.00-5.0); Eosinophil (Absolute #) 0.02 (0-0.5); Granulocyte Absolute (ANC) 4.48 (1.4-6.9); Granulocytes % 75.7 % (36.0-66.0); Hematocrit 47.3 % (35-47); Hemoglobin 16.1 gm/dl (12.0-16.0); Lymphocytes % 16.9 % (24.0-44.0); Mean Cell Volume 86.8 fl (78-100); Mean Corpuscular Hemoglobin 29.5 pg (26-32); Mean Platelet Volume 9.7 fl (6-9.5); Monocytes % 6.8 % (0.0-12.0); Platelet Count 271 K/mm3 (150-450); Red Blood Count 5.45 M/mm3 (4.1-5.4); White Blood Count 5.9 K/mm3 (4.0-10.5)
[2018-09-23] MEDS ORDERED: Hydromorphone 1 mg/ml Ampule ONE (12:56)
[2018-09-23 12:57] LABS: Appearance CLOUDY (CLEAR); Bilirubin NEGATIVE (NEGATIVE); Blood NEGATIVE Ery/ul (0-5); Glucose 50 mg/dL (NEGATIVE); Ketones TRACE (NEGATIVE); Leukocyte Esterase SMALL (NEGATIVE); Nitrite NEGATIVE (NEGATIVE); Protein,Urine Dip 30 (Negative); Specific Gravity 1.027 (1.005-1.025); Urobilinogen NEGATIVE mg/dL (0-1)
[2018-09-23 13:12] LABS: INR 1.07 (0.8-3.0)
--- NOTE | 2018-09-23 13:13 | ERPHSYRPT ---
- History of Present Illness Time Seen by Provider: 09/23/18 12:35 Historian: patient Exam Limitations: clinical condition Patient Subjective Stated Complaint: Abdominal pain in both upper quadrants and in the lower left quadrant Triage Nursing Assessment: Pt c/o of abdominal pain in both upper quadrants and in the lower left quadrant since last night, pain with palpitation, hx of divirticulosis, vitals wnl, pulses normal, nausea but denies vomiting, rates pain 9/10 Physician History: PATIENT WITH A HISTORY OF TYPE 2, DIABETES, DIVERTICULITIS, COMPLAINS OF ACUTE ONSET OF GENERALIZED CRAMPY ABDOMINAL PAIN, EMESIS X 3 AND WATERY DIARRHEA 3-4 EPISODES DAILY X 3 DAYS. DENIES FEVER, CHILLS OR URINARY SYMPTOMS. Timing/Duration: day(s) Activities at Onset: none Quality: cramping, sharpness Abdominal Pain Onset Location: generalized abdomen Pain Radiation: no radiation Severity of Pain-Max: severe Severity of Pain-Current: moderate Modifying Factors: Improves With: defecating, vomiting Associated Symptoms: denies symptoms Previous symptoms: same symptoms as today Allergies/Adverse Reactions: No Known Drug Allergies Allergy (Verified 09/23/18 12:31) Home Medications: Escitalopram Oxalate [Lexapro] 5 mg PO DAILY 02/23/18 [History] Insulin Aspart [Novolog Flexpen] 0 mg SQ UD 02/23/18 [History] Metformin HCl [Glucophage] 1,000 mg PO BID 02/23/18 [History] Aspirin 81 gm Chew [Baby Aspirin 81 mg Chew] 81 mg PO DAILY 09/23/18 [ History] Insulin Glargine [Lantus Insulin] 15 unit SQ QAM 09/23/18 [History] Hx Tetanus, Diphtheria Vaccination/Date Given: No Hx Influenza Vaccination/Date Given: Yes Hx Pneumococcal Vaccination/Date Given: Yes - Review of Systems Constitutional: No Fever, No Chills Eyes: No Symptoms Ears, Nose, & Throat: No Symptoms Respiratory: No Symptoms, No Cough, No Dyspnea Cardiac: No Symptoms, No Chest Pain, No Edema, No Syncope Abdominal/Gastrointestinal: Abdominal Pain, Nausea, Vomiting, Diarrhea Genitourinary Symptoms: No Symptoms, No Dysuria Musculoskeletal: No Symptoms, No Back Pain, No Neck Pain Skin: No Symptoms, No Rash Neurological: No Symptoms, No Dizziness, No Focal Weakness, No Sensory Changes Psychological: No Symptoms Endocrine: No Symptoms All Other Systems: Reviewed and Negative - Past Medical History Pertinent Past Medical History: Yes Neurological History: Migraines ENT History: No Pertinent History Cardiac History: No Pertinent History Respiratory History: No Pertinent History Endocrine Medical History: Diabetes Type II Musculoskeletal History: No Pertinent History GI Medical History: Diverticulosis, Gallbladder Disease History: No Pertinent History Psycho-Social History: No Pertinent History Female Reproductive Disorders: No Pertinent History Other Medical History: URETHERAL DIVERTICULITIS-SEES A PHYSICIAN IN [facility] FOR THIS. - Past Surgical History Past Surgical History: Yes Neuro Surgical History: No Pertinent History Cardiac: No Pertinent History Respiratory: No Pertinent History Gastrointestinal: Cholecystectomy Genitourinary: Other Musculoskeletal: No Pertinent History Female Surgical History: No Pertinent History Other Surgical History: urethral diverticulitis - Social History Smoking Status: Current some day smoker How long have you smoked: 20 years Exposure to second hand smoke: No Alcohol Use: Socially Drug Use: none Patient Lives Alone: No Significant Family History: diabetes, hypertension - Female History Hx Last Menstrual Period: about 10 years ago Hx Now: (unknown) - Nursing Vital Signs Nursing Vital Signs: Initial Vital Signs Temperature 98.9 F 09/23/18 12:20 Pulse Rate 97 H 09/23/18 12:20 Blood Pressure 108/75 09/23/18 12:20 O2 Sat by Pulse Oximetry 97 09/23/18 12:20 Pain Scale Pain Intensity 4 - Physical Exam General Appearance: mild distress Eye Exam: PERRL/EOMI, eyes nml inspection Ears, Nose, Throat Exam: normal ENT inspection, pharynx normal, moist mucous membranes Neck Exam: normal inspection, non-tender, supple, full range of motion Respiratory Exam: normal breath sounds, lungs clear, No respiratory distress Cardiovascular Exam: regular rate/rhythm, normal heart sounds Gastrointestinal/Abdomen Exam: soft, normal bowel sounds, tenderness (THERE IS PERIUMBILICAL TENDERNESS, LLQ AND LUQ TENDERNESS), No mass Back Exam: normal inspection, normal range of motion, No CVA tenderness, No vertebral tenderness Extremity Exam: normal inspection, normal range of motion, pelvis stable Neurologic Exam: alert, oriented x 3, cooperative, normal mood/affect, nml cerebellar function, sensation nml, No motor deficits Skin Exam: normal color, warm, dry SpO2 Interpretation: normal SpO2: 97 Oxygen Delivery: Room Air - CT Exams Abdomen/Pelvis CT Interpretation: Discussed w/radiologist (normal appendix, minimal descending and sigmoid diverticulosis without diverticulitis, no free air or fliud) Ordered Tests: Active Orders 24 hr Category Date Time Status ACCUCHECK [Accucheck] STAT Care 09/23/18 13:01 Active Clean Catch Urine Specimen STAT Care 09/23/18 12:42 Active IV Insertion STAT Care 09/23/18 12:42 Active ABDOMEN AND PELVIS W CONTRAST [CT] Stat Exams 09/23/18 12:43 Completed AMYLASE Stat Lab 09/23/18 12:32 Completed BLOOD CULTURE Stat Lab 09/23/18 12:50 Received CBC W DIFF Stat Lab 09/23/18 12:42 Completed CMP Stat Lab 09/23/18 12:32 Completed CULTURE,URINE Stat Lab 09/23/18 12:42 Received HCG,QUALITATIVE URINE Stat Lab 09/23/18 12:32 Completed LIPASE Stat Lab 09/23/18 12:32 Completed Occult Blood,Stool Other Stat Lab 09/23/18 12:32 Completed PROTIME WITH INR Stat Lab 09/23/18 12:32 Completed UA W/RFX UR CULTURE Stat Lab 09/23/18 12:42 Completed Medication Summary Discontinued Medications Generic Name Dose Route Start Last Admin Trade Name Freq PRN Reason Stop Dose Admin Diphenhydramine HCl 25 mg 09/23/18 12:42 09/23/18 12:54 Benadryl 50 Mg/Ml IV 09/23/18 12:43 25 mg STAT ONE Administration Diphenhydramine HCl Confirm 09/23/18 12:46 Benadryl 50 Mg/Ml Administered 09/23/18 12:47 Dose 50 mg .ROUTE .STK-MED ONE Hydromorphone HCl 1 mg 09/23/18 12:44 09/23/18 12:59 Hydromorphone 1 Mg/Ml Ampule IV 09/23/18 12:45 1 mg STAT ONE Administration Hydromorphone HCl Confirm 09/23/18 12:56 Hydromorphone 1 Mg/Ml Ampule Administered 09/23/18 12:57 Dose 1 mg .ROUTE .STK-MED ONE Sodium Chloride 1,000 mls @ 999 mls/hr 09/23/18 12:42 09/23/18 12:54 Sodium Chloride 0.9% 1000 Ml IV 09/23/18 13:42 999 mls/hr .Q1H1M STA Administration Sodium Chloride Confirm 09/23/18 12:46 Sodium Chloride 0.9% 1000 Ml Administered 09/23/18 12:47 Dose 1,000 mls @ ud .ROUTE .STK-MED ONE Levofloxacin/Dextrose 500 mg in 100 mls @ 100 mls/hr 09/23/18 13:27 09/23/18 13:36 Levofloxacin 500mg/100ml D5w IV 09/23/18 14:26 100 ml/hr STAT STA 100 mls/hr Administration Levofloxacin/Dextrose Confirm 09/23/18 13:34 Levofloxacin 500mg/100ml D5w Administered 09/23/18 13:35 Dose 500 mg in 100 mls @ ud IV .STK-MED ONE Ketorolac Tromethamine 30 mg 09/23/18 14:27 Toradol 30 Mg Injection IV 09/23/18 14:28 STAT ONE Ketorolac Tromethamine Confirm 09/23/18 14:32 Toradol 30 Mg Injection Administered 09/23/18 14:33 Dose 30 mg .ROUTE .STK-MED ONE Ondansetron HCl 4 mg 09/23/18 12:42 09/23/18 12:54 Zofran 4 Mg/2 Ml Vial IV 09/23/18 12:43 4 mg STAT ONE Administration Ondansetron HCl Confirm 09/23/18 12:46 Zofran 4 Mg/2 Ml Vial Administered 09/23/18 12:47 Dose 4 mg .ROUTE .STK-MED ONE Lab/Rad Data: Laboratory Result Diagrams 09/23/18 12:42 09/23/18 12:32 Laboratory Results 09/23/18 09/23/18 09/23/18 Range/Units 12:42 12:42 12:32 WBC 5.9 (4.0-10.5) K/mm3 RBC 5.45 H (4.1-5.4) M/mm3 Hgb 16.1 H (12.0-16.0) gm/dl Hct 47.3 H (35-47) % MCV 86.8 (78-100) fl MCH 29.5 (26-32) pg MCHC 34.0 (32-36) g/dl RDW 13.0 (11.5-14.0) % Plt Count 271 (150-450) K/mm3 MPV 9.7 H (6-9.5) fl Gran % 75.7 H (36.0-66.0) % Eos # (Auto) 0.02 (0-0.5) Absolute Lymphs (auto) 1.00 (1.0-4.6) Absolute Monos (auto) 0.40 (0.0-1.3) Lymphocytes % 16.9 L (24.0-44.0) % Monocytes % 6.8 (0.0-12.0) % Eosinophils % 0.3 (0.00-5.0) % Basophils % 0.3 (0.0-0.4) % Absolute Granulocytes 4.48 (1.4-6.9) Basophils # 0.02 (0-0.4) PT (9.95-12.35) SECONDS INR (0.8-3.0) Sodium (137-145) mmol/L Potassium (3.5-5.1) mmol/L Chloride (98-107) mmol/L Carbon Dioxide (22-30) mmol/L Anion Gap (5-15) MEQ/L BUN (7-17) mg/dL Creatinine (0.52-1.04) mg/dL Estimated GFR ML/MIN Glucose (74-106) mg/dL Calcium (8.4-10.2) mg/dL Total Bilirubin (0.2-1.3) mg/dL AST (14-36) U/L ALT (0-35) U/L Alkaline Phosphatase (38-126) U/L Serum Total Protein (6.3-8.2) g/dL Albumin (3.5-5.0) g/dL Amylase (30-110) U/L Lipase (23-300) U/L Urine Color YELLOW (YELLOW) Urine Appearance CLOUDY (CLEAR) Urine pH 5.0 (5-6) Ur Specific [place] 1.027 (1.005-1.025) Urine Protein 30 (Negative) Urine Ketones TRACE (NEGATIVE) Urine Blood NEGATIVE (0-5) Ifeanyi/ul Urine Nitrite NEGATIVE (NEGATIVE) Urine Bilirubin NEGATIVE (NEGATIVE) Urine Urobilinogen NEGATIVE (0-1) mg/dL Ur Leukocyte Esterase SMALL (NEGATIVE) Urine WBC (Auto) 11-15 (0-5) /HPF Urine RBC (Auto) 3-5 (0-2) /HPF U Epithel Cells (Auto) RARE (FEW) /HPF Urine Bacteria (Auto) FEW (NEGATIVE) /HPF Urine Mucus (Auto) SLIGHT (NEGATIVE) /HPF Urine Culture Reflexed YES (NO) Urine Glucose 50 (NEGATIVE) mg/dL Urine HCG, Qual (Negative) Stool Occult Blood (Negative) Stl C. diff Tox B Gene NEGATIVE (NEGATIVE) C.difficile 027-NAP1-B1 PRESUMPTIVE NEGATIVE (NEGATIVE) 09/23/18 09/23/18 09/23/18 Range/Units 12:32 12:32 12:32 WBC (4.0-10.5) K/mm3 RBC (4.1-5.4) M/mm3 Hgb (12.0-16.0) gm/dl Hct (35-47) % MCV (78-100) fl MCH (26-32) pg MCHC (32-36) g/dl RDW (11.5-14.0) % Plt Count (150-450) K/mm3 MPV (6-9.5) fl Gran % (36.0-66.0) % Eos # (Auto) (0-0.5) Absolute Lymphs (auto) (1.0-4.6) Absolute Monos (auto) (0.0-1.3) Lymphocytes % (24.0-44.0) % Monocytes % (0.0-12.0) % Eosinophils % (0.00-5.0) % Basophils % (0.0-0.4) % Absolute Granulocytes (1.4-6.9) Basophils # (0-0.4) PT (9.95-12.35) SECONDS INR (0.8-3.0) Sodium (137-145) mmol/L Potassium (3.5-5.1) mmol/L Chloride (98-107) mmol/L Carbon Dioxide (22-30) mmol/L Anion Gap (5-15) MEQ/L BUN (7-17) mg/dL Creatinine (0.52-1.04) mg/dL Estimated GFR ML/MIN Glucose (74-106) mg/dL Calcium (8.4-10.2) mg/dL Total Bilirubin (0.2-1.3) mg/dL AST (14-36) U/L ALT (0-35) U/L Alkaline Phosphatase (38-126) U/L Serum Total Protein (6.3-8.2) g/dL Albumin (3.5-5.0) g/dL Amylase (30-110) U/L Lipase 101 (23-300) U/L Urine Color (YELLOW) Urine Appearance (CLEAR) Urine pH (5-6) Ur Specific [place] (1.005-1.025) Urine Protein (Negative) Urine Ketones (NEGATIVE) Urine Blood (0-5) Ifeanyi/ul Urine Nitrite (NEGATIVE) Urine Bilirubin (NEGATIVE) Urine Urobilinogen (0-1) mg/dL Ur Leukocyte Esterase (NEGATIVE) Urine WBC (Auto) (0-5) /HPF Urine RBC (Auto) (0-2) /HPF U Epithel Cells (Auto) (FEW) /HPF Urine Bacteria (Auto) (NEGATIVE) /HPF Urine Mucus (Auto) (NEGATIVE) /HPF Urine Culture Reflexed (NO) Urine Glucose (NEGATIVE) mg/dL Urine HCG, Qual NEGATIVE (Negative) Stool Occult Blood NEGATIVE (Negative) Stl C. diff Tox B Gene (NEGATIVE) C.difficile 027-NAP1-B1 (NEGATIVE) 09/23/18 09/23/18 Range/Units 12:32 12:32 WBC (4.0-10.5) K/mm3 RBC (4.1-5.4) M/mm3 Hgb (12.0-16.0) gm/dl Hct (35-47) % MCV (78-100) fl MCH (26-32) pg MCHC (32-36) g/dl RDW (11.5-14.0) % Plt Count (150-450) K/mm3 MPV (6-9.5) fl Gran % (36.0-66.0) % Eos # (Auto) (0-0.5) Absolute Lymphs (auto) (1.0-4.6) Absolute Monos (auto) (0.0-1.3) Lymphocytes % (24.0-44.0) % Monocytes % (0.0-12.0) % Eosinophils % (0.00-5.0) % Basophils % (0.0-0.4) % Absolute Granulocytes (1.4-6.9) Basophils # (0-0.4) PT 12.4 H (9.95-12.35) SECONDS INR 1.07 (0.8-3.0) Sodium 137 (137-145) mmol/L Potassium 4.0 (3.5-5.1) mmol/L Chloride 105 (98-107) mmol/L Carbon Dioxide 20 L (22-30) mmol/L Anion Gap 16.1 H (5-15) MEQ/L BUN 12 (7-17) mg/dL Creatinine 0.52 (0.52-1.04) mg/dL Estimated GFR > 60.0 ML/MIN Glucose 281 H (74-106) mg/dL Calcium 9.4 (8.4-10.2) mg/dL Total Bilirubin 0.70 (0.2-1.3) mg/dL AST 29 (14-36) U/L ALT 32 (0-35) U/L Alkaline Phosphatase 131 H (38-126) U/L Serum Total Protein 7.8 (6.3-8.2) g/dL Albumin 4.6 (3.5-5.0) g/dL Amylase 49 (30-110) U/L Lipase (23-300) U/L Urine Color (YELLOW) Urine Appearance (CLEAR) Urine pH (5-6) Ur Specific [place] (1.005-1.025) Urine Protein (Negative) Urine Ketones (NEGATIVE) Urine Blood (0-5) Ifeanyi/ul Urine Nitrite (NEGATIVE) Urine Bilirubin (NEGATIVE) Urine Urobilinogen (0-1) mg/dL Ur Leukocyte Esterase (NEGATIVE) Urine WBC (Auto) (0-5) /HPF Urine RBC (Auto) (0-2) /HPF U Epithel Cells (Auto) (FEW) /HPF Urine Bacteria (Auto) (NEGATIVE) /HPF Urine Mucus (Auto) (NEGATIVE) /HPF Urine Culture Reflexed (NO) Urine Glucose (NEGATIVE) mg/dL Urine HCG, Qual (Negative) Stool Occult Blood (Negative) Stl C. diff Tox B Gene (NEGATIVE) C.difficile 027-NAP1-B1 (NEGATIVE) - Progress Progress Note: 09/23/18 13:14 ADMINISTERED IV NORMAL SALINE 1 LITER/HR, BENADRYL 25MG, ZOFRAN 4MG, DILAUDID 1MG IV 09/23/18 13:22 ALL LAB TESTS ARE REVIEWED AND ARE NORMAL WITH THE EXCEPTION OF URINALYSIS WBC 11-15, OCCULT STOOL AND C-DIFFICLE NEGATIVE Discussed with : Robin (DISCUSSED WITH DR BENNETT AT 1500 FOR OBSERVATION) - Departure Time of Disposition: 15:07 Departure Disposition: Observation Clinical Impression: INTRACTABLE EMESIS/DIARRHEA, URINARY TRACT INFECTION, ABDOMINAL PAIN Condition: Stable Critical Care Time: No Referrals: TIFFANIE BENNETT [Primary Care Provider] -
[2018-09-23 13:27] LABS: ALBUMIN 4.6 g/dL (3.5-5.0); ALKALINE PHOSPHATASE 131 U/L (38-126); AMYLASE 49 U/L (30-110); ANION GAP 16.1 MEQ/L (5-15); BLOOD UREA NITROGEN 12 mg/dL (7-17); CHLORIDE 105 mmol/L (98-107); Calcium 9.4 mg/dL (8.4-10.2); Carbon Dioxide 20 mmol/L (22-30); Creatinine 1 0.52 mg/dL (0.52-1.04); Glucose 281 mg/dL (74-106); SGOT/AST 29 U/L (14-36); SGPT/ALT 32 U/L (0-35); SODIUM 137 mmol/L (137-145); Total Protein 7.8 g/dL (6.3-8.2)
[2018-09-23] MEDS ORDERED: Levofloxacin 500MG/100ML D5W 500 MG/100 ML BAG IV STA (13:27)
[2018-09-23] MEDS ORDERED: Levofloxacin 500MG/100ML D5W 500 MG/100 ML BAG IV ONE (13:34)
[2018-09-23 14:09] LABS: 027 TOX PROD PRESUMPTIVE NEGATIVE (NEGATIVE); TOXIGENIC C. DIFF ORG NEGATIVE (NEGATIVE)
--- NOTE | 2018-09-23 14:19 | XRAY ---
Indication: Abdominal pain, nausea, vomiting, and diarrhea. History diverticulitis. Multiple contiguous axial images obtained through the abdomen and pelvis using 80 cc Isovue 370 contrast. Comparison: February 23, 2018. Lung bases demonstrates stable right base calcified granuloma. Minimal bibasilar dependent atelectasis. No infiltrate or effusion. Heart is not enlarged. Noncontrasted stomach and bowel loops appear nonobstructed. Normal appendix. Again minimal descending and sigmoid diverticulosis without diverticulitis. No free fluid/air. Stable fatty liver, cholecystectomy clips, partial duplication of the right ureter, and IUD in situ. Remaining liver, pancreas, spleen, adrenal glands, kidneys, ureters, bladder, uterus, and aorta appear unremarkable. No pathologic retroperitoneal lymphadenopathy. Osseous structures intact. No ventral or inguinal hernias. Impression: 1. Stable fatty liver and minimal colonic diverticulosis. 2. Remaining CT abdomen/pelvis with contrast exam is again negative. CT DI 23.46
[2018-09-23] MEDS ORDERED: TORAdol 30 mg Injection IV ONE (14:27)
[2018-09-23] MEDS ORDERED: TORAdol 30 mg Injection ONE (14:32)
[2018-09-23] MEDS ORDERED: TYLENOL 325 MG PO PRN (14:59)
[2018-09-23] MEDS ORDERED: Sodium Chloride 0.9% 1000 ML 1,000 ML IV SCH (15:15)
[2018-09-23] MEDS: NovoLOG Insulin SQ PRN ×2 (16:38→21:39)
[2018-09-23] MEDS: Zofran 4 MG/2 ML VIAL IV PRN (21:08)
[2018-09-23] MEDS: MORPHINE SULFATE 4 MG INJ IV PRN (21:09)
[2018-09-23] MEDS: Pepcid 20 MG VIAL IV SCH (21:09)
[2018-09-24] MEDS: Sodium Chloride 0.9% 1000 ML 1,000 ML IV SCH ×2 (01:13→12:26)
[2018-09-24] MEDS: NovoLOG Insulin SQ PRN ×4 (08:14→22:56)
[2018-09-24 09:28] LABS: BASOPHIL % 0.7 % (0.0-0.4); Basophil (Absolute #) 0.02 (0-0.4); Eosinophil % 0.7 % (0.00-5.0); Eosinophil (Absolute #) 0.02 (0-0.5); Granulocytes % 40.1 % (36.0-66.0); Hemoglobin 13.9 gm/dl (12.0-16.0); Lymphocyte (Absolute #) 1.42 (1.0-4.6); Lymphocytes % 47.5 % (24.0-44.0); Mean Corpuscular Hemoglobin 29.4 pg (26-32); Mean Corpuscular Hgb Concent. 33.1 g/dl (32-36); Mean Platelet Volume 9.2 fl (6-9.5); Monocyte (Absolute #) 0.33 (0.0-1.3); Platelet Count 219 K/mm3 (150-450); Red Blood Count 4.72 M/mm3 (4.1-5.4); Red Cell Distribution Width 12.8 % (11.5-14.0)
[2018-09-24] MEDS: Zofran 4 MG/2 ML VIAL IV PRN (09:33)
[2018-09-24] MEDS: MORPHINE SULFATE 4 MG INJ IV PRN (09:34)
[2018-09-24] MEDS: Pepcid 20 MG VIAL IV SCH ×2 (09:37→22:57)
[2018-09-24] MEDS: ECOTRIN 81 MG PO SCH (09:39)
[2018-09-24] MEDS: Levofloxacin 500MG/100ML D5W 500 MG/100 ML BAG IV SCH (09:39)
[2018-09-24] MEDS: Lantus Insulin SQ SCH (09:39)
[2018-09-24] MEDS ORDERED: Lexapro 10 MG PO SCH (10:00)
[2018-09-24 10:21] LABS: ANION GAP 10.1 MEQ/L (5-15); BLOOD UREA NITROGEN 7 mg/dL (7-17); CHLORIDE 107 mmol/L (98-107); Calcium 8.6 mg/dL (8.4-10.2); Carbon Dioxide 25 mmol/L (22-30); Creatinine 1 0.51 mg/dL (0.52-1.04); Glucose 256 mg/dL (74-106); Potassium 3.9 mmol/L (3.5-5.1); SODIUM 138 mmol/L (137-145)
[2018-09-24] MEDS ORDERED: Ativan 2 MG/1 ML VIAL IV PRN (12:12)
[2018-09-24] MEDS ORDERED: Robitussin 100 MG/5 ML PO PRN (12:28)
[2018-09-24] MEDS: Protonix 40MG Tablet PO SCH (12:44)
[2018-09-24 13:18] LABS: Source: Feces
--- NOTE | 2018-09-24 18:55 | XRAY ---
Indication: Cough and chest wall pain. Comparison: December 02, 2017. PA/lateral chest again demonstrates minimal left base atelectasis/scarring. Remaining heart, lungs, and bony thorax normal.
--- NOTE | 2018-09-24 18:55 | XRAY ---
Indication: Chest wall pain. Elevated d-dimer. Multiple contiguous axial images obtained through the chest using 80 cc Isovue 370 contrast and PE protocol. Comparison: None There is good opacification of the pulmonary arteries to include the lobar and segmental branches. No filling defect or pulmonary embolus. Heart is not enlarged. Aorta is normal in course and caliber. Right hilar calcified nodes. No pathologic mediastinal/hilar lymphadenopathy. Lungs are inflated with mild bilateral lower lobe and lingular subsegmental atelectasis/scarring and right middle lobe calcified granuloma. No suspicious pulmonary mass, infiltrate, or effusion. Bony thorax intact. Limited upper abdomen demonstrates mild fatty liver, 13 sinus splenomegaly, and cholecystectomy clips. Impression: 1. Negative pulmonary embolus. 2. Incidental subsegmental atelectasis/scarring, fatty liver, splenomegaly, and evidence for old granulomatous disease. Comment: Preliminary interpretation was made by [facility] who reports bilateral airspace disease which I do not appreciate on this exam. No corresponding airspace disease on same day chest radiograph. CTDI 23.68
[2018-09-24] MEDS ORDERED: ENOXAPARIN SODIUM SQ ONE (19:03)
[2018-09-24] MEDS: Lexapro 10 MG PO SCH (22:56)
[2018-09-25] MEDS: Sodium Chloride 0.9% 1000 ML 1,000 ML IV SCH ×2 (04:48→16:21)
[2018-09-25] MEDS: Zofran 4 MG/2 ML VIAL IV PRN ×2 (05:50→13:44)
[2018-09-25] MEDS: MORPHINE SULFATE 4 MG INJ IV PRN ×3 (05:57→14:52)
[2018-09-25 06:42] LABS: Hematocrit 36.8 % (35-47); Hemoglobin 12.5 gm/dl (12.0-16.0); Mean Cell Volume 87.8 fl (78-100); Mean Corpuscular Hemoglobin 29.8 pg (26-32); Mean Platelet Volume 11.1 fl (6-9.5); Platelet Count 184 K/mm3 (150-450); Red Blood Count 4.19 M/mm3 (4.1-5.4); Red Cell Distribution Width 12.7 % (11.5-14.0); White Blood Count 4.3 K/mm3 (4.0-10.5)
[2018-09-25 06:45] LABS: ANION GAP 11.3 MEQ/L (5-15); BLOOD UREA NITROGEN 9 mg/dL (7-17); CHLORIDE 108 mmol/L (98-107); Calcium 8.7 mg/dL (8.4-10.2); Carbon Dioxide 23 mmol/L (22-30); Creatinine 1 0.47 mg/dL (0.52-1.04); Glucose 215 mg/dL (74-106); SODIUM 138 mmol/L (137-145)
[2018-09-25] MEDS: Lantus Insulin SQ SCH (08:07)
[2018-09-25] MEDS: NovoLOG Insulin SQ PRN ×3 (08:08→22:22)
[2018-09-25] MEDS: Pepcid 20 MG VIAL IV SCH ×2 (08:08→22:21)
[2018-09-25] MEDS: ECOTRIN 81 MG PO SCH (08:08)
[2018-09-25] MEDS: Protonix 40MG Tablet PO SCH (08:11)
[2018-09-25] MEDS: Levofloxacin 500MG/100ML D5W 500 MG/100 ML BAG IV SCH (08:12)
[2018-09-25] MEDS: ENOXAPARIN SODIUM SQ SCH (08:15)
[2018-09-25 09:42] LABS: Lymphocytes 63 % (24-44); Monocyte 2 % (0.0-12.0); Neutrophils 35 % (36.0-66.0); Total Cells Counted 100
[2018-09-25 09:43] LABS: Platelet Estimate NORMAL (NORMAL)
[2018-09-25] MEDS ORDERED: Lantus Insulin SQ SCH (10:55)
--- NOTE | 2018-09-25 10:57 | PCM.NOTE ---
Date and Time: 09/25/18 1052 Subjective Assessment: Patient reports her right eye has been itchy and dry with some discharge. She reports no upper quadrant pain on the left side or chest pain at all now but has suprapubic pain that is worse after she urinates. 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 she has been eating well. No n/v. She thinks she might want to go home later today. - Review of Systems Constitutional: No Symptoms Eyes: No Symptoms Ears, Nose, & Throat: No Symptoms Respiratory: No Symptoms Cardiac: No Symptoms Abdominal/Gastrointestinal: Other (suprapubic pain) Musculoskeletal: No Symptoms Skin: No Symptoms Objective Exam General Appearance: no apparent distress, alert, obese Neurologic Exam: alert, cooperative, normal mood/affect Skin Exam: normal color, warm, dry, No rash Cardiovascular Exam: regular rate/rhythm, normal heart sounds, No murmur, No friction rub, No gallop Gastrointestinal/Abdomen Exam: soft, normal bowel sounds, tenderness, other ( suprapubic tenderness), No distention, No mass, No guarding Extremity Exam: normal inspection, other (no c/c/e) OBJECTIVE DATA Vital Signs: Vital Signs - 24 hr Temp Pulse Resp BP BP Pulse Ox 09/25/18 07:37 97.7 F 55 L 20 115/62 98 09/25/18 04:05 97.6 F 55 L 20 107/56 96 09/24/18 23:56 98.3 F 64 20 92/49 97 09/24/18 20:22 98.3 F 65 18 95/45 98 09/24/18 16:00 97.8 F 52 L 18 124/62 100 09/24/18 12:00 97.4 F 60 18 109/58 98 Pain Assessment - Last Documented Pain Intensity 6 Pain Scale Used 0-10 Pain Scale Intake and Output: Intake & Output 09/23/18 09/24/18 09/25/18 09/26/18 06:59 06:59 06:59 06:59 Intake Total 2901 4348 420 Output Total 1400 1800 400 Balance 1501 2548 20 Weight 106.4 kg Lab Results: Accuchecks Date 09/25/18 Date 09/24/18 Date 09/24/18 Time 07:30 Accucheck Value: 220 Accucheck Value: 280 Accucheck Value: 258 Accucheck Value: 205 Lab Results-Last 24 Hours 09/23/18 09/24/18 09/24/18 Range/Units 12:32 13:13 13:13 WBC (4.0-10.5) K/mm3 RBC (4.1-5.4) M/mm3 Hgb (12.0-16.0) gm/dl Hct (35-47) % MCV (78-100) fl MCH (26-32) pg MCHC (32-36) g/dl RDW (11.5-14.0) % Plt Count (150-450) K/mm3 MPV (6-9.5) fl Segmented Neutrophils (36.0-66.0) % Lymphocytes (Manual) (24-44) % Monocytes (Manual) (0.0-12.0) % Platelet Estimate (NORMAL) RBC Morphology D-Dimer 1226 H* (215-500) ng/mL Sodium (137-145) mmol/L Potassium (3.5-5.1) mmol/L Chloride (98-107) mmol/L Carbon Dioxide (22-30) mmol/L Anion Gap (5-15) MEQ/L BUN (7-17) mg/dL Creatinine (0.52-1.04) mg/dL Estimated GFR ML/MIN Glucose (74-106) mg/dL Calcium (8.4-10.2) mg/dL Troponin I < 0.012 (0.000-0.034) ng/mL Cryptosporidium Ag Negative (Negative) Giardia Antigen Negative (Negative) O & P Source Feces 09/25/18 09/25/18 Range/Units 05:45 05:45 WBC 4.3 (4.0-10.5) K/mm3 RBC 4.19 (4.1-5.4) M/mm3 Hgb 12.5 (12.0-16.0) gm/dl Hct 36.8 (35-47) % MCV 87.8 (78-100) fl MCH 29.8 (26-32) pg MCHC 34.0 (32-36) g/dl RDW 12.7 (11.5-14.0) % Plt Count 184 (150-450) K/mm3 MPV 11.1 H (6-9.5) fl Segmented Neutrophils 35 L (36.0-66.0) % Lymphocytes (Manual) 63 H (24-44) % Monocytes (Manual) 2 (0.0-12.0) % Platelet Estimate NORMAL (NORMAL) RBC Morphology NORMAL D-Dimer (215-500) ng/mL Sodium 138 (137-145) mmol/L Potassium 4.0 (3.5-5.1) mmol/L Chloride 108 H (98-107) mmol/L Carbon Dioxide 23 (22-30) mmol/L Anion Gap 11.3 (5-15) MEQ/L BUN 9 (7-17) mg/dL Creatinine 0.47 L (0.52-1.04) mg/dL Estimated GFR > 60.0 ML/MIN Glucose 215 H (74-106) mg/dL Calcium 8.7 (8.4-10.2) mg/dL Troponin I (0.000-0.034) ng/mL Cryptosporidium Ag (Negative) Giardia Antigen (Negative) O & P Source Radiology Exams: Radiology Procedures Category Date Time Status ABDOMEN AND PELVIS W CONTRAST [CT] Stat Exams 09/23/18 12:43 Completed CHEST 2 VIEWS (PA AND LAT) Routine Exams 09/24/18 12:53 Completed CHEST WITH CONTRAST [CT] Stat Exams 09/24/18 14:20 Completed Assessment/Plan (1) UTI (urinary tract infection) Current Visit: Yes Status: Acute Onset Date: ~09/23/18 Assessment & Plan: Urine cx grew E. coli and this is susceptible to levofloxacin which she is taking. Code(s): N39.0 - URINARY TRACT INFECTION, SITE NOT SPECIFIED (2) Diarrhea Current Visit: Yes Status: Acute Onset Date: ~09/23/18 Qualifiers: Assessment & Plan: Improving; GI panel not collected yet. Code(s): R19.7 - DIARRHEA, UNSPECIFIED (3) Diabetes Current Visit: No Status: Chronic Qualifiers: Diabetes mellitus type: type 2 Diabetes mellitus group home insulin use: with group home use Diabetes mellitus complication status: without complication Qualified Code(s): E11.9 - Type 2 diabetes mellitus without complications; Z79.4 - shelter (current) use of insulin Assessment & Plan: Will increase lantus back to her regular home dose and continue sliding scale of novolog. Code(s): E11.9 - TYPE 2 DIABETES MELLITUS WITHOUT COMPLICATIONS (4) Elevated d-dimer Current Visit: Yes Status: Acute Assessment & Plan: Chest CT was negative for PE Code(s): R79.89 - OTHER SPECIFIED ABNORMAL FINDINGS OF BLOOD CHEMISTRY (5) Urethral diverticulum Current Visit: Yes Status: Acute Assessment & Plan: She will need to follow up with her urologist as outpatient. If continued problems here, may consider MRI of urethra, but this is not available here on a Wednesday. Code(s): N36.1 - URETHRAL DIVERTICULUM
[2018-09-25] MEDS ORDERED: Cortisporin Eye Drops OP SCH (11:00)
[2018-09-25] MEDS ORDERED: SODIUM SULAMYD EYE DROPS 15 ML OP ONE (11:13)
[2018-09-25] MEDS: SODIUM SULAMYD EYE DROPS 15 ML OP SCH ×2 (21:05→23:52)
[2018-09-25] MEDS: Lexapro 10 MG PO SCH (22:17)
[2018-09-26] MEDS: MORPHINE SULFATE 4 MG INJ IV PRN ×2 (03:51→11:29)
[2018-09-26] MEDS: SODIUM SULAMYD EYE DROPS 15 ML OP SCH ×3 (03:52→09:26)
[2018-09-26] MEDS: Sodium Chloride 0.9% 1000 ML 1,000 ML IV SCH (06:47)
[2018-09-26 07:23] VITALS: BP 135/63; PULSE 50; O2SAT 93
--- NOTE | 2018-09-26 08:55 | PCM.DS ---
Discharge Summary Date of Admission: 09/23/18 15:30 Admitting Physician: TIFFANIE BENNETT Primary Care Provider: TIFFANIE BENNETT Allergies Allergies No Known Drug Allergies Allergy (Verified 09/23/18 12:31) Hospital Summary - Hospital Course Hospital Course: Pt is 43 yo female with hx urethral diverticulum remotely admitted through the ER with abd and suprapubic pain, found to have UTI and treated with IV levaquin (Ucx results show E. coli, which is susceptible). It has been years since she saw her urologist at [facility], and she did not follow up as directed. She is feeling much better today, denying deb abdominal pain. She is tolerating po. she does complain of a cough and complains of some irritation, itchiness with exudate of R eye. CXR with minimal L base atelectasis/scarring. Her CT chest was negatvie for pulmonary embolism (positive for subsegmental atelectasis/scarring and old granulomatous disease; splenomegaly). Her CT abd/pelvis was positive for minimal diverticulosis, stable fatty liver, otherwise negative. - Vitals & Intake/Output Vital Signs: Vital Signs Temperature 97.6 F 09/26/18 07:23 Pulse Rate 50 L 09/26/18 07:23 Respiratory Rate 18 09/26/18 07:23 Blood Pressure 135/63 09/26/18 07:23 O2 Sat by Pulse Oximetry 93 L 09/26/18 07:23 Intake & Output: Intake & Output 09/23/18 09/24/18 09/25/18 09/26/18 11:59 11:59 11:59 11:59 Intake Total 3021 5188 3314 Output Total 1999 2400 2500 Balance 1021 2788 814 Weight 106.4 kg - Lab Result Diagrams: 09/25/18 05:45 09/25/18 05:45 Lab Results-Last 24 Hrs: Accuchecks Date 09/25/18 Date 09/25/18 Time 16:30 Time 11:30 Accucheck Value: 188 Accucheck Value: 219 Accucheck Value: 213 Accucheck Value: 196 Lab Results-Last 24 Hours 09/25/18 09/25/18 Range/Units 05:45 10:00 Segmented Neutrophils 35 L (36.0-66.0) % Lymphocytes (Manual) 63 H (24-44) % Monocytes (Manual) 2 (0.0-12.0) % Platelet Estimate NORMAL (NORMAL) RBC Morphology NORMAL Stl C. cayetanensis PCR NEGATIVE (NEGATIVE) Stl Adenov F 40/41 PCR NEGATIVE (NEGATIVE) Stool Astrovirus (PCR) NEGATIVE (NEGATIVE) Stool Cryptosporidium PCR NEGATIVE (NEGATIVE) Stool EPEC (PCR) NEGATIVE (NEGATIVE) Stool EAEC (PCR) NEGATIVE (NEGATIVE) Stl E. histolytica PCR NEGATIVE (NEGATIVE) Stl P. shigelloides PCR NEGATIVE (NEGATIVE) Stool Sapovirus (PCR) NEGATIVE (NEGATIVE) St Y.enterocolitica PCR NEGATIVE (NEGATIVE) Stool Vibrio (PCR) NEGATIVE (NEGATIVE) Stl Vibrio cholerae PCR NEGATIVE (NEGATIVE) Stl Norovirus GI/GII PCR NEGATIVE (NEGATIVE) Campylobacter (PCR) NEGATIVE (NEGATIVE) C. difficile Toxin A&B NEGATIVE (NEGATIVE) Enterotoxigenic E. coli NEGATIVE (NEGATIVE) E.coli Shiga Toxins NEGATIVE (NEGATIVE) Giardia lamblia NEGATIVE (NEGATIVE) Rotavirus A (PCR) NEGATIVE (NEGATIVE) Salmonella (PCR) NEGATIVE (NEGATIVE) Shigella (PCR) NEGATIVE (NEGATIVE) Micro Results-Entire Visit: Microbiology 09/23/18 12:32 Stool Culture - Preliminary Stool 09/23/18 12:42 Urine Culture - Final Urine, Void Escherichia Coli 09/23/18 12:32 Blood Culture - Preliminary Blood NO GROWTH TO DATE 09/23/18 12:50 Blood Culture - Preliminary Blood NO GROWTH TO DATE Accuchecks Date 09/25/18 Date 09/25/18 Time 16:30 Time 11:30 Accucheck Value: 188 Accucheck Value: 219 Accucheck Value: 213 Accucheck Value: 196 - Radiology Exams Ordered Rad Exams-Entire Visit: Radiology Procedures Category Date Time Status CHEST 2 VIEWS (PA AND LAT) Routine Exams 09/24/18 12:53 Completed CHEST WITH CONTRAST [CT] Stat Exams 09/24/18 14:20 Completed - Procedures and Test Procedures and Tests throughout Hospitalization: Therapy Orders & Screens 09/23/18 16:06 Smoking Cessation Education ONCE Comment: Diagnosis: abdominal pain, UTI Smoking Status: Current some day smoker How long have you smoked: 20 years Have you smoked in the past 12 months: Yes Approximately how many cigarettes per day: 1 pack q3days Do you dip or chew tobacco: No 09/24/18 12:28 EKG ROUTINE Comment: Diagnosis: chest pain Discharge Exam General Appearance: no apparent distress, alert, obese Neurologic Exam: oriented x 3, cooperative Skin Exam: normal color, warm, dry, No rash Eye Exam: PERRL, EOMI, eyes nml inspection (no conjunctival erythema on R), No scleral icterus Ears, Nose, Throat Exam: moist mucous membranes Neck Exam: normal inspection Respiratory Exam: normal breath sounds, lungs clear, No crackles/rales, No rhonchi, No wheezing Cardiovascular Exam: regular rate/rhythm, normal heart sounds, No murmur Gastrointestinal/Abdomen Exam: soft, normal bowel sounds, tenderness (RUQ), No distention, No mass, No guarding, No rebound Extremity Exam: normal inspection, No pedal edema, No swelling Back Exam: normal inspection, No rash Final Diagnosis/Problem List - Final Discharge Diagnosis/Problem (1) UTI (urinary tract infection) Current Visit: Yes Status: Acute Onset Date: ~09/23/18 (2) Urethral diverticulum Current Visit: Yes Status: Acute (3) Diabetes Current Visit: No Status: Chronic (4) Conjunctivitis Current Visit: Yes Status: Acute Assessment & Plan: possibly viral as the antibacterial drops are not helping as yet. Treating in the event there is a bacterial infection. Eye exam is benign today. (5) Cough Current Visit: Yes Status: Acute Assessment & Plan: worse since admission. She is on levaquin. Discussed that it may be viral or related to dry air. Exam is benign. Will check CXR. - Discharge Disposition: Home, Self-Care Condition: Good Prescriptions: New Levofloxacin [Levaquin] 500 mg PO DAILY #7 tablet Sulfacetamide Sodium Ophth [Sodium Sulamyd Eye Drops 15 ml] 0.25 ml OP Q3H #1 bottle Continue Escitalopram Oxalate [Lexapro] 5 mg PO HS Metformin HCl [Glucophage] 1,000 mg PO BID Insulin Aspart [Novolog Flexpen] 0 mg SQ UD Insulin Glargine [Lantus Insulin] 15 unit SQ QAM Aspirin 81 gm Chew [Baby Aspirin 81 mg Chew] 81 mg PO DAILY Follow up with: TIFFANIE BENNETT [Primary Care Provider] - 1 Week
[2018-09-26] MEDS: ECOTRIN 81 MG PO SCH (09:17)
[2018-09-26] MEDS: Pepcid 20 MG VIAL IV SCH (09:17)
[2018-09-26] MEDS: Protonix 40MG Tablet PO SCH (09:17)
[2018-09-26] MEDS: Levofloxacin 500MG/100ML D5W 500 MG/100 ML BAG IV SCH (09:17)
[2018-09-26] MEDS: ENOXAPARIN SODIUM SQ SCH (09:17)
--- NOTE | 2018-09-26 09:30 | HP ---
HISTORY OF PRESENT ILLNESS: This is a 43 year-old patient of Dr. Kelly who was admitted to the hospital yesterday. She reports to me today that she ate at [employer] in [place] on and started to feel bad just a few hours after eating that. She reports she started having diarrhea and abdominal pain that got worse on Wednesday. She was able to eat Jell-O for breakfast this morning but as soon as she ate she had diarrhea four times. She reports she drinks and eating okay now but had decreased urination before this. She reports continued stomach pain in the epigastric-sternal area over to the left side. She reports nausea with this but states that Zofran helped with that. She vomited twice at home but is not vomiting now. She denies seeing blood in her stool. She has not been around anyone who is sick and none of the family members who also ate at [employer] developed illness. REVIEW OF SYSTEMS: She denies any fever. No lower extremity edema. No rashes. She has had a headache which the morphine helped with a little bit. Otherwise review of systems is negative. She had developed a cough that has been nonproductive of some sputum. PAST MEDICAL HISTORY: Diabetes mellitus type 2. PAST SURGICAL HISTORY: Cholecystectomy. Urethral tube. MEDICATIONS: Please see the medication reconciliation list which I have reviewed. ALLERGIES: NKDA. SOCIAL HISTORY: Her kids and lives with her. She occasionally smokes socially she reports. She denies any alcohol use. FAMILY HISTORY: Her mother is living and has no health problems. Her father from melanoma. PHYSICAL EXAMINATION: VITAL SIGNS: Temperature current 97.4F, temperature max 98.9F, heart rate 60 to 97, respiratory rate 18 to 20, blood pressure 108 to 121 over 51 to 75, weight 106.4 kg. Oxygen saturation 96 to 98% on room air. GENERAL: The patient is lying in bed. She is in discomfort when she changes position and reports left-sided chest pain with change in position, otherwise in no acute distress. CVS: Her heart has a regular rate and rhythm. No murmurs, gallops or rubs are appreciated. CHEST: Clear to auscultation bilaterally. No crackles or wheezes. ABDOMEN: Soft with tenderness in epigastric and left upper quadrant. No guarding. No rigidity. Hypoactive bowel sounds. EXTREMITIES: No clubbing, cyanosis or edema. SKIN: Warm, dry and intact. LABORATORY DATA AND TESTS: Her white blood cell count this morning was slightly low at 3.0. It had been normal at 5.9 yesterday. Hemoglobin 13.9. D-dimer obtained this afternoon was 1,226. BMP had a glucose of 256. Troponin was less than 0.012 this afternoon. UA had 11-15 white blood cells. Urine culture, stool culture and blood culture area all in lab. Stool for occult blood was negative. Clostridium difficile toxin was negative. CT scan of the abdomen and pelvis was read as stable fatty liver and minimal colonic diverticulosis. ASSESSMENT AND PLAN: 1) ABDOMINAL PAIN: She had a CT scan that ruled out any acute process there. She has a stool culture in lab. Clostridium difficile was negative. I have ordered GI panel since those results will be available right away as opposed to waiting for five days for stool culture. The patient was agreeable to this. I told her that if there is not any blood and the GI panel is negative and no fever we can try some Imodium to slow down the diarrhea. 2) DIARRHEA AND VOMITING: Will continue with symptomatic treatment. She is on IV fluids. 3) DIABETES MELLITUS TYPE 2: She has Accu-Chek's ordered with low dose sliding scale of NovoLog. 4) URINARY TRACT INFECTION: She has been started on levofloxacin. 5) ELEVATED D-DIMER: I have ordered a STAT CT scan of her chest with IV contrast. 6) COUGH: I have ordered chest x-ray to assess for possible pneumonia with her symptom of abdominal pain and cough.
--- NOTE | 2018-09-26 11:38 | XRAY ---
Indication: Hemoptysis. Comparison: September 24 PA/lateral chest unchanged again demonstrating minimal left base atelectasis/scarring. Remaining heart and lungs normal.
--- NOTE | 2018-09-26 12:13 | XRAY ---
Indication: Pelvic pain. Recurrent UTIs. History urethra diverticulum. Sagittal, coronal, and axial MRI pelvis performed without contrast using T1, T2, and STIR sequences. Comparison: None Urinary bladder is minimally distended without focal abnormality. Urethra not visualized. Uterus demonstrates 2 tiny cervical nabothian cysts, largest 5 mm. Remaining uterus demonstrates known IUD. Partially visualized tiny free fluid around the uterus. Visualized sigmoid colon unremarkable. Visualized osseous structures intact without abnormal bone marrow signal. Impression: Tiny nonspecific free fluid and tiny cervical nabothian cysts.
[2018-09-26] MEDS: NovoLOG Insulin SQ PRN (12:16)
== END 2018-09-26 12:50 | disposition home or self-care (01) ==
LOC: ED 12:16 → MED SURG 15:30
PROVIDERS: ADMIT Family Medicine; ATTEND Family Medicine
DX: N39.0 Urinary tract infection, site not specified (principal); B96.20 Unspecified Escherichia coli [E. coli] as the cause of diseases classified elsewhere; N36.1 Urethral diverticulum; E11.9 Type 2 diabetes mellitus without complications; H10.9 Unspecified conjunctivitis; R05 Cough; Z72.0 Tobacco use; K76.0 Fatty (change of) liver, not elsewhere classified; K57.90 Diverticulosis of intestine, part unspecified, without perforation or abscess without bleeding; R79.89 Other specified abnormal findings of blood chemistry; R19.7 Diarrhea, unspecified
CPT/HCPCS: 36000; 36415; 71046; 71260; 72195; 74177; 80048; 80053; 81001; 82150; 82272; 82962; 83036; 83690; 84484; 84703; 85025; 85379; 85610; 87040; 87045; 87046; 87077; 87086; 87177; 87186; 87209; 87335; 87493; 87507; 93005; 96360; 96374; 96375; 99285; G0378; J1170; J1200; J1650; J1885; J1956; J2270; J2405; A9270-GY

== ENCOUNTER 2019-07-28 19:43 | Emergency (ER) | payer SELFPAY ==
[2019-07-28 19:53] VITALS: BP 146/88; PULSE 78; O2SAT 97
--- NOTE | 2019-07-28 20:04 | ERPHSYRPT ---
- History of Present Illness Time Seen by Provider: 07/28/19 20:00 Exam Limitations: no limitations Patient Subjective Stated Complaint: Fall Triage Nursing Assessment: Patient brought back to ED via w/c and transferred self to bed. Patient A+O X.3 Patient's skin pink, warm and dry. Patient complains of right shoulder, right elbow, right collar bone, right knee and right foot after falling. Patient states she was cooking dinner and turned around and her foot got stuck in a heat vent in the floor that the cover was not on. Patient denies hitting head or losing consciousness. No visible bruising or swelling noted. Physician History: Patient has pain to the right side upper and lower extremities after stepping through a heating vent and hitting her right upper and lower extremities and twisting her right side of her back. Occurred: just prior to arrival Reason for Fall: fell from standing pos (fell through a heating after stepping over it and the vent was not covered) Injuries/Pain Location: upper extremity (right elbow, collar bone and shoulder) , back (right lateral side), lower extremity (right knee and foot) Loss of Consciousness: no loss of consciousness Quality: aching, stabbing Severity of Pain-Max: severe Severity of Pain-Current: severe Modifying Factors: Improves With: immobilization. Worsens With: movement Associated Symptoms (Fall): back pain, extremity injury (right upper and lower extremities), trouble walking (weight bearing on the right lower extremity), No abdominal pain, No confusion, No chest pain, No dizziness, No headache, No lightheadedness, No muscle spasms, No nausea, No neck pain, No ringing in ears, No seizures, No slurred speech, No vomiting, No vision changes Allergies/Adverse Reactions: No Known Drug Allergies Allergy (Verified 07/28/19 19:45) Home Medications: Escitalopram Oxalate [Lexapro] 5 mg PO HS 02/23/18 [History] Insulin Aspart [Novolog Flexpen] 0 mg SQ UD 02/23/18 [History] Metformin HCl [Glucophage] 1,000 mg PO BID 02/23/18 [History] Aspirin 81 gm Chew [Baby Aspirin 81 mg Chew] 81 mg PO DAILY 09/23/18 [ History] Insulin Glargine [Lantus Insulin] 15 unit SQ QAM 09/23/18 [History] Hx Tetanus, Diphtheria Vaccination/Date Given: No Hx Influenza Vaccination/Date Given: No Hx Pneumococcal Vaccination/Date Given: No Immunizations Up to Date: Yes - Review of Systems Constitutional: No Fatigue, No Lethargy Eyes: No Eye Pain, No Vision Changes Ears, Nose, & Throat: No Ear Pain, No Nose Pain, No Epistaxis Respiratory: No Cough, No Dyspnea Cardiac: No Chest Pain, No Palpitations Abdominal/Gastrointestinal: No Abdominal Pain, No Nausea, No Vomiting Genitourinary Symptoms: No Flank Pain Musculoskeletal: Back Pain, Fall, Injury, No Neck Pain Skin: No Rash Neurological: No Dizziness, No Focal Weakness, No Parasthesia, No Tremors, No Vertigo Psychological: No Anxiety Endocrine: No Excessive Sweating Hematologic/Lymphatic: No Easy Bleeding, No Easy Bruising All Other Systems: Reviewed and Negative - Past Medical History Pertinent Past Medical History: Yes Neurological History: Migraines ENT History: No Pertinent History Cardiac History: No Pertinent History Respiratory History: No Pertinent History Endocrine Medical History: Diabetes Type II Musculoskeletal History: No Pertinent History GI Medical History: Diverticulitis, Diverticulosis, Gallbladder Disease History: No Pertinent History Psycho-Social History: No Pertinent History Female Reproductive Disorders: No Pertinent History Other Medical History: URETHERAL DIVERTICULITIS-SEES A PHYSICIAN IN [facility] FOR THIS. - Past Surgical History Past Surgical History: Yes Neuro Surgical History: No Pertinent History Cardiac: No Pertinent History Respiratory: No Pertinent History Gastrointestinal: Cholecystectomy Genitourinary: Other Musculoskeletal: No Pertinent History Female Surgical History: No Pertinent History Other Surgical History: urethral diverticulitis - Social History Smoking Status: Current every day smoker How long have you smoked: years Exposure to second hand smoke: No Alcohol Use: Socially Drug Use: none Patient Lives Alone: No Significant Family History: diabetes, hypertension - Female History Hx Last Menstrual Period: IUD Hx Now: No - Nursing Vital Signs Nursing Vital Signs: Initial Vital Signs Temperature 98.0 F 07/28/19 19:45 Pulse Rate 78 07/28/19 19:45 Respiratory Rate 18 07/28/19 19:45 Blood Pressure 146/88 07/28/19 19:45 O2 Sat by Pulse Oximetry 97 07/28/19 19:45 Pain Scale Pain Intensity 7 - [place] Coma Score Best Eye Response (Juni): (4) open spontaneously Best Verbal Response (Juni): (5) oriented Best Motor Response (Juni): (6) obeys commands Juni Total: 15 - Physical Exam General Appearance: no apparent distress Head Injury: no evidence of injury, No active bleeding, No Barbosa's Sign, No contusions, No ecchymosis, No flap, No lacerations, No tenderness Eye Exam: PERRL/EOMI, eyes nml inspection, No scleral icterus ENT Exam: airway nml, hearing grossly normal, No evidence of ENT injury, No dental injury, No nml ext.inspection, No clear fluid (ears), No clear fluid ( nose), No midface instability, No hemotympanum, No clotted nasal blood, No malocclusion, No oral injury Neck Exam: supple, trachea midline, full range of motion, normal alignment, normal inspection, No muscle spasm, No paraspinous muscle tender, No pain on movement of neck Respiratory/Chest Exam: normal breath sounds, respiratory distress, No chest tenderness, No ecchymosis, No crepitus, No decreased breath sounds Cardiovascular Exam: normal heart sounds, regular rate/rhythm, normal peripheral pulses Gastrointestinal Exam: soft, normal bowel sounds, No tenderness, No distention, No mass, No guarding Back Exam: normal inspection, normal range of motion, point tenderness (right lower lateral paraspinal muscles), No CVA tenderness, No vertebral tenderness, No muscle spasm Extremity Exam: normal inspection, normal range of motion, capillary refill <3 sec, pelvis stable, bony point tenderness (right elbow, right clavicle, right anterior and medial knee, right foot), pain with movement (right elbow, right clavicle, right anterior and medial knee, right foot), No evidence of injury, No hip tenderness Peripheral Pulses: dorsalis-pedis (R): 2+, dorsalis-pedis (L): 2+ Neurologic Exam: alert, oriented x 3, cooperative, machine hostler II-XII nml as tested, normal mood/affect, sensation nml, No motor deficits Skin Exam: normal color, warm, dry, No rash SpO2 Interpretation: normal SpO2: 97 O2 Delivery: Room Air - Radiology Exams Right Shoulder X-ray Interpretation: Interpreted by me, Reviewed by me, Negative, No Fracture, Nml Alignment, Nml Soft Tissues Right Elbow X-ray Interpretation: Interpreted by me, Reviewed by me, Negative, No Fracture, Nml Alignment, Nml Soft Tissues Right Knee X-ray Interpretation: Interpreted by me, Reviewed by me, Negative, No Fracture, Nml Alignment, Nml Soft Tissues Right Foot X-ray Interpretation: Interpreted by me, Reviewed by me, Negative, No Fracture, Nml Alignment, Nml Soft Tissues Ordered Tests: Active Orders 24 hr Category Date Time Status ELBOW (MINIMUM 3 VIEWS) Stat Exams 07/28/19 20:06 Taken FOOT (MINIMUM 3 VIEWS) Stat Exams 07/28/19 20:05 Taken KNEE (3 VIEWS) Stat Exams 07/28/19 20:06 Taken SHOULDER Stat Exams 07/28/19 20:07 Taken Medication Summary Discontinued Medications Generic Name Dose Route Start Last Admin Trade Name Aryan PRN Reason Stop Dose Admin Ketorolac Tromethamine 60 mg 07/28/19 20:05 07/28/19 20:15 Toradol 30 Mg Injection IM 07/28/19 20:06 60 mg STAT ONE Administration Ketorolac Tromethamine Confirm 07/28/19 20:10 Toradol 30 Mg Injection Administered 07/28/19 20:11 Dose 60 mg .ROUTE .STK-MED ONE Oxycodone/Acetaminophen 1 tab 07/28/19 20:05 07/28/19 20:13 Percocet Tablet 5/325mg PO 07/28/19 20:06 1 tab STAT STA Administration Oxycodone/Acetaminophen Confirm 07/28/19 20:10 Percocet Tablet 5/325mg Administered 07/28/19 20:11 Dose 1 tab .ROUTE .STK-MED ONE - Progress Progress: improved Progress Note: 07/28/19 22:17 Pain is much improved after medication. Patient has no neurovascular deficits in the upper or lower extremities bilaterally Counseled pt/family regarding: diagnosis, need for follow-up, rad results - Departure Departure Disposition: Home Clinical Impression: Contusion of right knee, initial encounter, Contusion of right shoulder, initial encounter, Contusion of right elbow, initial encounter, Elevated blood pressure reading without diagnosis of hypertension Contusion of right foot Qualifiers: Encounter type: initial encounter Qualified Code(s): S90.31XA - Contusion of right foot, initial encounter Lumbar strain Qualifiers: Encounter type: initial encounter Qualified Code(s): S39.012A - Strain of muscle, fascia and tendon of lower back, initial encounter Condition: Good Critical Care Time: No Referrals: TIFFANIE BENNETT [Primary Care Provider] - [facility]Ortho M-F [id number] Instructions: DASH Diet, Contusion (DC), Preventing Falls, Lumbar Muscle Strain (DC) Additional Instructions: Your x-rays this evening were read by the emergency room physician as being negative. We will let you known the morning of 07/29/2019 if there are any discrepancies the radiologists interprets that will change your clinical outcome. Follow-up with the Orthopedic clinic and your primary care physician next week if pain is still significant. Return immediately back to the emergency department if any worse pain, loss of function, or any other concerning signs or symptoms that were not present at today's emergency room visit for immediate reevaluation in the emergency department. Forms: Work/School Release Form Prescriptions: Etodolac 400 mg [Lodine 400 mg] 400 mg PO BID PRN PRN #20 tablet PRN Reason: Pain
[2019-07-28] MEDS ORDERED: TORAdol 30 mg Injection IM ONE (20:05)
[2019-07-28] MEDS ORDERED: PERCOCET TABLET 5/325MG PO STA (20:05)
[2019-07-28] MEDS ORDERED: PERCOCET TABLET 5/325MG ONE (20:10)
[2019-07-28] MEDS ORDERED: TORAdol 30 mg Injection ONE (20:10)
--- NOTE | 2019-07-29 00:01 | XRAY ---
Indication: Pain following fall. Comparison: None 3 views of the right shoulder obtained. No bony, articular, or soft tissue abnormalities.
--- NOTE | 2019-07-29 00:01 | XRAY ---
Indication: Pain following fall. Comparison: None 3 views of the right elbow obtained. No bony, articular, or soft tissue abnormalities.
--- NOTE | 2019-07-29 00:04 | XRAY ---
Indication: Pain following fall. Comparison: None 3 nonweightbearing views of the right foot demonstrates small cuboid accessory ossicle. No other bony, articular, or soft tissue abnormalities.
--- NOTE | 2019-07-29 00:04 | XRAY ---
Indication: Pain following fall. Comparison: November 19, 2016. 3 views of the right knee demonstrates stable minimal medial joint space narrowing. No new/acute bony, articular, or soft tissue abnormalities.
== END 2019-07-28 22:26 | disposition home or self-care (01) ==
LOC: ED 19:43
DX: S80.01XA Contusion of right knee, initial encounter (principal); W01.0XXA Fall on same level from slipping, tripping and stumbling without subsequent striking against object, initial encounter; S40.011A Contusion of right shoulder, initial encounter; S50.01XA Contusion of right elbow, initial encounter; R03.0 Elevated blood-pressure reading, without diagnosis of hypertension; S90.31XA Contusion of right foot, initial encounter; S39.012A Strain of muscle, fascia and tendon of lower back, initial encounter
CPT/HCPCS: 73030; 73080; 73562; 73630; 96372; 99284; J1885; A9270-GY

== ENCOUNTER 2020-01-16 13:05 | Emergency (ER) | payer MEDICAID ==
[2020-01-16] MEDS ORDERED: Sodium Chloride 0.9% 1000 ML 1,000 ML IV STA (13:37)
[2020-01-16] MEDS ORDERED: Zofran 4 MG/2 ML VIAL IV ONE (13:40)
[2020-01-16] MEDS ORDERED: Zofran 4 MG/2 ML VIAL ONE (13:42)
[2020-01-16] MEDS ORDERED: Sodium Chloride 0.9% 1000 ML 1,000 ML ONE (13:42)
--- NOTE | 2020-01-16 13:45 | XRAY ---
Indication: Fever, cough, and short of breath. Comparison: September 26, 2018. Portable chest demonstrates normal heart, lungs, and bony thorax.
[2020-01-16 13:49] LABS: Absolute Neutrophil Ct (ANC) 3.43 (1.4-6.9); BASOPHIL % 0.7 % (0.0-0.4); Basophil (Absolute #) 0.04 (0-0.4); Eosinophil % 1.2 % (0.00-5.0); Eosinophil (Absolute #) 0.07 (0-0.5); Hematocrit 42.8 % (35-47); Hemoglobin 14.7 gm/dl (12.0-16.0); Lymphocyte (Absolute #) 1.92 (1.0-4.6); Lymphocytes % 32.3 % (24.0-44.0); Mean Cell Volume 85.9 fl (78-100); Mean Corpuscular Hemoglobin 29.5 pg (26-32); Mean Corpuscular Hgb Concent. 34.3 g/dl (32-36); Mean Platelet Volume 9.5 fl (7.5-11.0); Monocyte (Absolute #) 0.49 (0.0-1.3); Monocytes % 8.2 % (0.0-12.0); Neutrophil % 57.6 % (36.0-66.0); Platelet Count 275 K/mm3 (150-450); Red Blood Count 4.98 M/mm3 (4.1-5.4); Red Cell Distribution Width 13.8 % (11.5-14.0)
[2020-01-16 13:53] LABS: INR 0.98 (0.8-3.0); PROTIME 11.1 SECONDS (9.95-12.35)
[2020-01-16 13:55] LABS: PTT 31.8 SECONDS (25.3-37.0)
[2020-01-16 14:08] LABS: ALBUMIN 4.2 g/dL (3.5-5.0); ALKALINE PHOSPHATASE 120 U/L (38-126); ANION GAP 12.3 MEQ/L (5-15); BLOOD UREA NITROGEN 12 mg/dL (7-17); CHLORIDE 107 mmol/L (98-107); Calcium 9.2 mg/dL (8.4-10.2); Carbon Dioxide 23 mmol/L (22-30); Creatinine 1 0.44 mg/dL (0.52-1.04); Glucose 308 mg/dL (74-106); Potassium 3.9 mmol/L (3.5-5.1); SGOT/AST 23 U/L (14-36); SGPT/ALT 29 U/L (0-35); SODIUM 139 mmol/L (137-145); Total Protein 7.4 g/dL (6.3-8.2)
[2020-01-16 14:09] LABS: TROPONIN < 0.012 ng/mL (0.000-0.034)
[2020-01-16 14:38] LABS: Appearance SLIGHTLY CLOUDY (CLEAR); Bacteria RARE /HPF (NEGATIVE); Bilirubin NEGATIVE (NEGATIVE); Blood NEGATIVE Ery/ul (0-5); Glucose >=500 mg/dL (NEGATIVE); Ketones NEGATIVE (NEGATIVE); Leukocyte Esterase NEGATIVE (NEGATIVE); Nitrite POSITIVE (NEGATIVE); Protein,Urine Dip NEGATIVE (Negative); Specific Gravity 1.013 (1.005-1.025); Urobilinogen NEGATIVE mg/dL (0-1)
[2020-01-16 14:57] LABS: INFLUENZA A NEGATIVE (NEGATIVE); INFLUENZA B NEGATIVE (NEGATIVE); RESPIRATORY SYNCTIAL VIRUS NEGATIVE (Negative)
[2020-01-16] MEDS ORDERED: HUMULIN R IV ONE (14:57)
--- NOTE | 2020-01-16 15:07 | ERPHSYRPT ---
- History of Present Illness Time Seen by Provider: 01/16/20 13:21 Source: patient Exam Limitations: no limitations Patient Subjective Stated Complaint: Pt states that she has had a sore throat for the past couple of days and has had a cough and today she woke up with shortness of breath and a fever Triage Nursing Assessment: Pt brought self to the ER, hypertensive, tachypnea, afebrile, pulses normal, rates chest pain 2/10 when coughing, lungs clear, denies N&V Timing/Duration: day(s) (3) Cough Quality/Degree: productive cough, sputum (green) Possible Cause: occasional episodes Modifying Factors: Improves With: activity, coughing Associated Symptoms: fever, chills, cough, muscle aches, nasal congestion, shortness of breath, sore throat International travel in last 2 weeks: No Allergies/Adverse Reactions: No Known Drug Allergies Allergy (Verified 01/16/20 13:43) Home Medications: Insulin Aspart [Novolog Flexpen] 0 mg SQ UD 02/23/18 [History] Insulin Glargine [Lantus Insulin] 15 unit SQ QAM 09/23/18 [History] Lorazepam 1 mg [Ativan 1 MG] 1 mg PO UD PRN 01/16/20 [History] Hx Tetanus, Diphtheria Vaccination/Date Given: No Hx Influenza Vaccination/Date Given: No Hx Pneumococcal Vaccination/Date Given: No Travel Risk - International Travel Have you traveled outside of the country in past 3 weeks: No Have you or anyone close to you been diagnosed with or: No Do your reside in a community with a known COVID-19 case?: Yes If Yes where:: [place] - Coronavirus Screening Has patient experienced Coronavirus symptoms: Yes Symptoms experienced: fever(equal or > 100.4 F), respiratory symptoms ( i.e.[place],shortness of breath) - Review of Systems Constitutional: Fever, Chills, Fatigue, Lethargy, Malaise, Weakness Eyes: No Symptoms Ears, Nose, & Throat: Nose Congestion, Sinus Drainage, Throat Pain Respiratory: Cough Cardiac: No Chest Pain, No Edema, No Syncope Abdominal/Gastrointestinal: Diarrhea, No Abdominal Pain, No Nausea, No Vomiting Genitourinary Symptoms: No Dysuria Musculoskeletal: Myalgias Skin: No Rash Neurological: No Dizziness, No Focal Weakness, No Sensory Changes Psychological: No Symptoms Endocrine: No Symptoms - Past Medical History Pertinent Past Medical History: Yes Neurological History: Migraines ENT History: No Pertinent History Cardiac History: No Pertinent History Respiratory History: No Pertinent History Endocrine Medical History: Diabetes Type II Musculoskeletal History: No Pertinent History GI Medical History: Diverticulitis, Diverticulosis, Gallbladder Disease History: No Pertinent History Psycho-Social History: No Pertinent History Female Reproductive Disorders: No Pertinent History Other Medical History: URETHERAL DIVERTICULITIS-SEES A PHYSICIAN IN [facility] FOR THIS. - Past Surgical History Past Surgical History: Yes Neuro Surgical History: No Pertinent History Cardiac: No Pertinent History Respiratory: No Pertinent History Gastrointestinal: Cholecystectomy Genitourinary: Other Musculoskeletal: No Pertinent History Female Surgical History: No Pertinent History Other Surgical History: urethral diverticulitis - Social History Smoking Status: Current every day smoker How long have you smoked: years Exposure to second hand smoke: Yes Alcohol Use: Socially Drug Use: none Patient Lives Alone: No Significant Family History: diabetes, hypertension - Female History Hx Now: No - Nursing Vital Signs Nursing Vital Signs: Initial Vital Signs Temperature 98.2 F 01/16/20 13:36 Pulse Rate 84 01/16/20 13:36 Respiratory Rate 24 01/16/20 13:36 Blood Pressure 148/95 01/16/20 13:36 O2 Sat by Pulse Oximetry 98 01/16/20 13:36 Pain Scale Pain Intensity 2 - Physical Exam General Appearance: mild distress, alert Eye Exam: PERRL/EOMI, eyes nml inspection Ears, Nose, Throat Exam: normal ENT inspection, TMs normal, moist mucous membranes, pharyngeal erythema Neck Exam: normal inspection, non-tender, supple, full range of motion Respiratory Exam: normal breath sounds, lungs clear, No respiratory distress Cardiovascular Exam: regular rate/rhythm, normal heart sounds Gastrointestinal/Abdomen Exam: soft, No tenderness, No distention, No mass, No guarding, No rebound Pelvic Exam: deferred Back Exam: normal inspection, No CVA tenderness, No vertebral tenderness Extremity Exam: normal inspection, normal range of motion Neurologic Exam: alert, oriented x 3, cooperative, normal mood/affect, sensation nml, No motor deficits Skin Exam: normal color, warm, dry, No rash Lymphatic Exam: No adenopathy SpO2: 97 - Course Nursing assessment & vital signs reviewed: Yes - Radiology Exams Chest X-ray Interpretation: Discussed w/ radiologist, Negative Ordered Tests: Active Orders 24 hr Category Date Time Status IV Insertion STAT Care 01/16/20 13:35 Active CHEST 1 VIEW (PORTABLE) Stat Exams 01/16/20 13:20 Completed CBC W DIFF Stat Lab 01/16/20 13:34 Completed CMP Stat Lab 01/16/20 13:34 Completed CULTURE,URINE Stat Lab 01/16/20 14:25 Received Wise Screen Stat Lab 01/16/20 13:40 Completed PROTIME WITH INR Stat Lab 01/16/20 13:34 Completed PTT Stat Lab 01/16/20 13:34 Completed TROPONIN Stat Lab 01/16/20 13:34 Completed UA W/RFX UR CULTURE Stat Lab 01/16/20 14:25 Completed Medication Summary Discontinued Medications Generic Name Dose Route Start Last Admin Trade Name Freq PRN Reason Stop Dose Admin Sodium Chloride 1,000 mls @ 999 mls/hr 01/16/20 13:37 01/16/20 15:11 Sodium Chloride 0.9% 1000 Ml IV 01/16/20 14:37 Infused .Q1H1M STA Infusion Sodium Chloride Confirm 01/16/20 13:42 Sodium Chloride 0.9% 1000 Ml Administered 01/16/20 13:43 Dose 1,000 mls @ ud .ROUTE .STK-MED ONE Insulin Human Regular 5 unit 01/16/20 14:57 01/16/20 15:13 Humulin R IV 01/16/20 14:58 5 unit STAT ONE Administration Insulin Human Regular Confirm 01/16/20 15:13 Humulin R Administered 01/16/20 15:14 Dose 5 unit .ROUTE .STK-MED ONE Ondansetron HCl 4 mg 01/16/20 13:40 01/16/20 13:43 Zofran 4 Mg/2 Ml Vial IV 01/16/20 13:41 4 mg STAT ONE Administration Ondansetron HCl Confirm 01/16/20 13:42 Zofran 4 Mg/2 Ml Vial Administered 01/16/20 13:43 Dose 4 mg .ROUTE .STK-MED ONE Lab/Rad Data: Laboratory Result Diagrams 01/16/20 13:34 01/16/20 13:34 Laboratory Results 01/16/20 01/16/20 01/16/20 Range/Units 14:33 14:25 14:24 WBC (4.0-10.5) K/mm3 RBC (4.1-5.4) M/mm3 Hgb (12.0-16.0) gm/dl Hct (35-47) % MCV (78-100) fl MCH (26-32) pg MCHC (32-36) g/dl RDW (11.5-14.0) % Plt Count (150-450) K/mm3 MPV (7.5-11.0) fl Gran % (36.0-66.0) % Eos # (Auto) (0-0.5) Absolute Lymphs (auto) (1.0-4.6) Absolute Monos (auto) (0.0-1.3) Lymphocytes % (24.0-44.0) % Monocytes % (0.0-12.0) % Eosinophils % (0.00-5.0) % Basophils % (0.0-0.4) % Absolute Granulocytes (1.4-6.9) Basophils # (0-0.4) PT (9.95-12.35) SECONDS INR (0.8-3.0) APTT (25.3-37.0) SECONDS Sodium (137-145) mmol/L Potassium (3.5-5.1) mmol/L Chloride (98-107) mmol/L Carbon Dioxide (22-30) mmol/L Anion Gap (5-15) MEQ/L BUN (7-17) mg/dL Creatinine (0.52-1.04) mg/dL Estimated GFR ML/MIN Glucose (74-106) mg/dL Calcium (8.4-10.2) mg/dL Total Bilirubin (0.2-1.3) mg/dL AST (14-36) U/L ALT (0-35) U/L Alkaline Phosphatase (38-126) U/L Troponin I (0.000-0.034) ng/mL Serum Total Protein (6.3-8.2) g/dL Albumin (3.5-5.0) g/dL Urine Color YELLOW (YELLOW) Urine Appearance SLIGHTLY CLOUDY (CLEAR) Urine pH 5.0 (5-6) Ur Specific [place] 1.013 (1.005-1.025) Urine Protein NEGATIVE (Negative) Urine Ketones NEGATIVE (NEGATIVE) Urine Blood NEGATIVE (0-5) Ifeanyi/ul Urine Nitrite POSITIVE (NEGATIVE) Urine Bilirubin NEGATIVE (NEGATIVE) Urine Urobilinogen NEGATIVE (0-1) mg/dL Ur Leukocyte Esterase NEGATIVE (NEGATIVE) Urine WBC (Auto) 6-10 (0-5) /HPF Urine RBC (Auto) NONE (0-2) /HPF U Epithel Cells (Auto) NONE (FEW) /HPF Urine Bacteria (Auto) RARE (NEGATIVE) /HPF Urine Culture Reflexed YES (NO) Urine Glucose >=500 (NEGATIVE) mg/dL Monoscreen (Negative) Influenza Type A Ag NEGATIVE (NEGATIVE) Influenza Type B Ag NEGATIVE (NEGATIVE) RSV (PCR) NEGATIVE (Negative) Group A Strep Antibody NOT DETECTED (NEGATIVE) 01/16/20 01/16/20 01/16/20 Range/Units 13:40 13:34 13:34 WBC (4.0-10.5) K/mm3 RBC (4.1-5.4) M/mm3 Hgb (12.0-16.0) gm/dl Hct (35-47) % MCV (78-100) fl MCH (26-32) pg MCHC (32-36) g/dl RDW (11.5-14.0) % Plt Count (150-450) K/mm3 MPV (7.5-11.0) fl Gran % (36.0-66.0) % Eos # (Auto) (0-0.5) Absolute Lymphs (auto) (1.0-4.6) Absolute Monos (auto) (0.0-1.3) Lymphocytes % (24.0-44.0) % Monocytes % (0.0-12.0) % Eosinophils % (0.00-5.0) % Basophils % (0.0-0.4) % Absolute Granulocytes (1.4-6.9) Basophils # (0-0.4) PT 11.1 (9.95-12.35) SECONDS INR 0.98 (0.8-3.0) APTT 31.8 (25.3-37.0) SECONDS Sodium 139 (137-145) mmol/L Potassium 3.9 (3.5-5.1) mmol/L Chloride 107 (98-107) mmol/L Carbon Dioxide 23 (22-30) mmol/L Anion Gap 12.3 (5-15) MEQ/L BUN 12 (7-17) mg/dL Creatinine 0.44 L (0.52-1.04) mg/dL Estimated GFR > 60.0 ML/MIN Glucose 308 H (74-106) mg/dL Calcium 9.2 (8.4-10.2) mg/dL Total Bilirubin 0.60 (0.2-1.3) mg/dL AST 23 (14-36) U/L ALT 29 (0-35) U/L Alkaline Phosphatase 120 (38-126) U/L Troponin I < 0.012 (0.000-0.034) ng/mL Serum Total Protein 7.4 (6.3-8.2) g/dL Albumin 4.2 (3.5-5.0) g/dL Urine Color (YELLOW) Urine Appearance (CLEAR) Urine pH (5-6) Ur Specific [place] (1.005-1.025) Urine Protein (Negative) Urine Ketones (NEGATIVE) Urine Blood (0-5) Ifeanyi/ul Urine Nitrite (NEGATIVE) Urine Bilirubin (NEGATIVE) Urine Urobilinogen (0-1) mg/dL Ur Leukocyte Esterase (NEGATIVE) Urine WBC (Auto) (0-5) /HPF Urine RBC (Auto) (0-2) /HPF U Epithel Cells (Auto) (FEW) /HPF Urine Bacteria (Auto) (NEGATIVE) /HPF Urine Culture Reflexed (NO) Urine Glucose (NEGATIVE) mg/dL Monoscreen NEGATIVE (Negative) Influenza Type A Ag (NEGATIVE) Influenza Type B Ag (NEGATIVE) RSV (PCR) (Negative) Group A Strep Antibody (NEGATIVE) 01/16/20 Range/Units 13:34 WBC 6.0 (4.0-10.5) K/mm3 RBC 4.98 (4.1-5.4) M/mm3 Hgb 14.7 (12.0-16.0) gm/dl Hct 42.8 (35-47) % MCV 85.9 (78-100) fl MCH 29.5 (26-32) pg MCHC 34.3 (32-36) g/dl RDW 13.8 (11.5-14.0) % Plt Count 275 (150-450) K/mm3 MPV 9.5 (7.5-11.0) fl Gran % 57.6 (36.0-66.0) % Eos # (Auto) 0.07 (0-0.5) Absolute Lymphs (auto) 1.92 (1.0-4.6) Absolute Monos (auto) 0.49 (0.0-1.3) Lymphocytes % 32.3 (24.0-44.0) % Monocytes % 8.2 (0.0-12.0) % Eosinophils % 1.2 (0.00-5.0) % Basophils % 0.7 (0.0-0.4) % Absolute Granulocytes 3.43 (1.4-6.9) Basophils # 0.04 (0-0.4) PT (9.95-12.35) SECONDS INR (0.8-3.0) APTT (25.3-37.0) SECONDS Sodium (137-145) mmol/L Potassium (3.5-5.1) mmol/L Chloride (98-107) mmol/L Carbon Dioxide (22-30) mmol/L Anion Gap (5-15) MEQ/L BUN (7-17) mg/dL Creatinine (0.52-1.04) mg/dL Estimated GFR ML/MIN Glucose (74-106) mg/dL Calcium (8.4-10.2) mg/dL Total Bilirubin (0.2-1.3) mg/dL AST (14-36) U/L ALT (0-35) U/L Alkaline Phosphatase (38-126) U/L Troponin I (0.000-0.034) ng/mL Serum Total Protein (6.3-8.2) g/dL Albumin (3.5-5.0) g/dL Urine Color (YELLOW) Urine Appearance (CLEAR) Urine pH (5-6) Ur Specific [place] (1.005-1.025) Urine Protein (Negative) Urine Ketones (NEGATIVE) Urine Blood (0-5) Ifeanyi/ul Urine Nitrite (NEGATIVE) Urine Bilirubin (NEGATIVE) Urine Urobilinogen (0-1) mg/dL Ur Leukocyte Esterase (NEGATIVE) Urine WBC (Auto) (0-5) /HPF Urine RBC (Auto) (0-2) /HPF U Epithel Cells (Auto) (FEW) /HPF Urine Bacteria (Auto) (NEGATIVE) /HPF Urine Culture Reflexed (NO) Urine Glucose (NEGATIVE) mg/dL Monoscreen (Negative) Influenza Type A Ag (NEGATIVE) Influenza Type B Ag (NEGATIVE) RSV (PCR) (Negative) Group A Strep Antibody (NEGATIVE) - Progress Progress: improved Air Movement: good Progress Note: 01/16/20 15:44 Patient with elevated blood sugar of 309. Insulin given along with IV fluids. Patient feels better. Will recheck blood sugar and most likely discharge patient home. Patient in agreement with plan. Blood Culture(s) Obtained: No Antibiotics given: No Counseled pt/family regarding: lab results, diagnosis, need for follow-up, rad results - Departure Departure Disposition: Home Clinical Impression: Viral illness, Hyperglycemia Condition: Stable Critical Care Time: No Referrals: TIFFANIE BENNETT [Primary Care Provider] - Instructions: Viral Syndrome (DC) Additional Instructions: Drink plenty of water. Monitor blood sugar. Tylenol Motrin for pain. Follow- up with your PCP in 2 to 3 days for recheck. Return to ER if worse. Prescriptions: Ondansetron ODT 4 MG [Zofran Odt 4 mg] 4 mg PO Q6H PRN PRN #10 tab.rapdis PRN Reason: Vomiting
[2020-01-16] MEDS ORDERED: HUMULIN R ONE (15:13)
[2020-01-16 16:13] VITALS: BP 166/77; PULSE 67; O2SAT 100
== END 2020-01-16 16:04 | disposition home or self-care (01) ==
LOC: ED 13:05
DX: B34.9 Viral infection, unspecified (principal); E11.65 Type 2 diabetes mellitus with hyperglycemia; Z72.0 Tobacco use
CPT/HCPCS: 36415; 71045; 80053; 81001; 84484; 85025; 85610; 85730; 86308; 87077; 87086; 87186; 87631; 87651; 96360; 96374; 96375; 99284; J1815; J2405

== ENCOUNTER 2020-03-24 10:49 | Emergency (ER) | payer MEDICAID, OTHER ==
--- NOTE | 2020-03-24 11:02 | ERPHSYRPT ---
- History of Present Illness Time Seen by Provider: 03/24/20 11:00 Source: patient Exam Limitations: no limitations Physician History: Patient is a 45-year-old female presents to our ED with complaints of left ankle pain. Patient states she was descending down a wheelchair ramp when she inverted her left ankle. Injury occurred just prior to arrival. Pain described as an ache that is well localized. No radiation. Pain worse with movement and palpation. Pain improved with rest. Patient has swelling at the left lateral malleolus. No associated knee or hip or back pain. No other trauma. No BHT or LOC. No lower extremity numbness tingling or weakness. Symptoms are constant. Symptoms are moderate in intensity. Patient is otherwise generally healthy. She voices no other complaints at this time. Patient has an IUD. She adamantly denies the possibility of and does not want to be tested at this time. Timing/Duration: today Modifying Factors: Improves With: cold therapy, movement Associated Symptoms: denies symptoms Allergies/Adverse Reactions: No Known Drug Allergies Allergy (Verified 03/24/20 11:05) Home Medications: Insulin Aspart [Novolog Flexpen] 0 mg SQ UD 02/23/18 [History] Insulin Glargine [Lantus Insulin] 15 unit SQ QAM 09/23/18 [History] Metformin HCl Xr 500 mg [Glucophage XR 500 MG] 1,000 mg BID 03/24/20 [ History] Hx Tetanus, Diphtheria Vaccination/Date Given: No Hx Influenza Vaccination/Date Given: No Hx Pneumococcal Vaccination/Date Given: No - Review of Systems Constitutional: No Symptoms, No Fever, No Chills Eyes: No Symptoms Ears, Nose, & Throat: No Symptoms Respiratory: No Symptoms, No Cough, No Dyspnea Cardiac: No Symptoms, No Chest Pain, No Edema, No Syncope Abdominal/Gastrointestinal: No Symptoms, No Abdominal Pain, No Nausea, No Vomiting, No Diarrhea Genitourinary Symptoms: No Symptoms, No Dysuria Musculoskeletal: No Symptoms, Other (Only complaint is left ankle.), No Back Pain, No Neck Pain Skin: No Symptoms, No Rash Neurological: No Dizziness, No Focal Weakness, No Sensory Changes Psychological: No Symptoms Endocrine: No Symptoms Hematologic/Lymphatic: No Symptoms Immunological/Allergic: No Symptoms All Other Systems: Reviewed and Negative - Past Medical History Pertinent Past Medical History: Yes Neurological History: Migraines ENT History: No Pertinent History Cardiac History: No Pertinent History Respiratory History: No Pertinent History Endocrine Medical History: Diabetes Type II Musculoskeletal History: No Pertinent History GI Medical History: Diverticulitis, Diverticulosis, Gallbladder Disease History: No Pertinent History Psycho-Social History: No Pertinent History Female Reproductive Disorders: No Pertinent History Other Medical History: URETHERAL DIVERTICULITIS-SEES A PHYSICIAN IN [facility] FOR THIS. - Past Surgical History Past Surgical History: Yes Neuro Surgical History: No Pertinent History Cardiac: No Pertinent History Respiratory: No Pertinent History Gastrointestinal: Cholecystectomy Genitourinary: Other Musculoskeletal: No Pertinent History Female Surgical History: No Pertinent History Other Surgical History: urethral diverticulitis - Social History Smoking Status: Current every day smoker How long have you smoked: years Exposure to second hand smoke: Yes Alcohol Use: Socially Drug Use: none Patient Lives Alone: No Significant Family History: diabetes, hypertension - Female History Hx Now: No - Nursing Vital Signs Nursing Vital Signs: Initial Vital Signs Temperature 97.0 F 03/24/20 10:56 Pulse Rate 89 03/24/20 10:56 Respiratory Rate 16 03/24/20 10:56 Blood Pressure 129/90 03/24/20 10:56 O2 Sat by Pulse Oximetry 99 03/24/20 10:56 Pain Scale Pain Intensity 4 - Physical Exam General Appearance: no apparent distress, alert Eye Exam: PERRL/EOMI, eyes nml inspection Ears, Nose, Throat Exam: normal ENT inspection, TMs normal, pharynx normal, moist mucous membranes Neck Exam: normal inspection, non-tender, supple, full range of motion Respiratory Exam: normal breath sounds, lungs clear, No respiratory distress Cardiovascular Exam: regular rate/rhythm, normal heart sounds, normal peripheral pulses Gastrointestinal/Abdomen Exam: soft, normal bowel sounds, No tenderness, No mass Pelvic Exam: not done Rectal Exam: deferred Back Exam: normal inspection, normal range of motion, No CVA tenderness, No vertebral tenderness Extremity Exam: normal inspection, normal range of motion, pelvis stable, other (Left ankle presents with swelling to the lateral malleolus. Overlying soft tissue intact. No obvious ecchymosis at this time. No open or draining lesions. No lacerations. No cellulitis. PT DP pulses are palpable. Compartments are soft. Cap refill less than 2 seconds. Extremities pink warm and well-perfused. Positive EHL positive FHL dorsiflexion plantarflexion limited somewhat due to pain.) Neurologic Exam: alert, oriented x 3, cooperative, normal mood/affect, nml cerebellar function, nml station & gait, sensation nml, No motor deficits Skin Exam: normal color, warm, dry, No rash Lymphatic Exam: No adenopathy SpO2 Interpretation: normal SpO2: 99 O2 Delivery: Room Air - Course Nursing assessment & vital signs reviewed: Yes - Radiology Exams Ankle X-ray Interpretation: Interpreted by me (No fracture or dislocation.) Ordered Tests: Active Orders 24 hr Category Date Time Status Cole Bandage Application -[facility] STAT Care 03/24/20 12:10 Active Nursing [Miscellaneous Nursing Order] ROUTINE Care 03/24/20 12:10 Active ANKLE (3 VIEWS) Stat Exams 03/24/20 10:57 Taken Medication Summary Discontinued Medications Generic Name Dose Route Start Last Admin Trade Name Freq PRN Reason Stop Dose Admin Ketorolac Tromethamine 60 mg 03/24/20 11:09 03/24/20 11:13 Toradol 30 Mg Injection IM 03/24/20 11:10 60 mg STAT ONE Administration Ketorolac Tromethamine Confirm 03/24/20 11:12 Toradol 30 Mg Injection Administered 03/24/20 11:13 Dose 60 mg .ROUTE .STK-MED ONE - Progress Progress: improved Progress Note: 03/24/20 12:14 Patient reassessed. Pain improved. X-ray does not reveal any fractures or dislocations. Formal x-ray read pending. Patient given an Cole wrap and bilateral axillary crutches. Patient referred to orthopedic clinic. Plan of care discussed with patient. She agrees to follow-up within 48 hours for reevaluation. Patient voices no other complaints at this time. We will keep patient nonweightbearing pending formal radiology read or clearance per Ortho clinic. Counseled pt/family regarding: diagnosis, need for follow-up, rad results - Departure Departure Disposition: Home Clinical Impression: Ankle sprain Condition: Stable Critical Care Time: No Referrals: TIFFANIE BENNETT [Primary Care Provider] - Additional Instructions: Discharge/Care Plan WHITNEYBRAYDEN MENJIVAR was seen on 03/24/20 in the Emergency Room. The patient was counseled regarding Diagnosis,Lab results, Imaging studies, need for follow up and when to return to the Emergency Room. Prescriptions given: Discharge Note I have spoken with the patient and/or caregivers. I have explained the patient' s condition, diagnosis and treatment plan based on the information available to me at this time. I have answered the patient's and/or caregiver's questions and addressed any concerns. The patient and/or caregivers have as good understanding of the patient's diagnosis, condition and treatment plan as can be expected at this point. The vital signs have been stable. The patient's condition is stable and appropriate for discharge from the emergency department. The patient will pursue further outpatient evaluation with the primary care physician or other designated or consulting physician as outlined in the discharge instructions. The patient and/or caregivers are agreeable to this plan of care and follow-up instructions have been explained in detail. The patient and/or caregivers have received these instruction. The patient/and or caregivers are aware that any significant change in condition or worsening of symptoms should prompt an immediate return to this or the closest emergency department or call 911. Outpatient Orders: Ortho Referral Time Frame: 1 Day, Location: [facility]
[2020-03-24 11:06] VITALS: O2SAT 99
[2020-03-24] MEDS ORDERED: TORAdol 30 mg Injection ONE (11:12)
[2020-03-24] MEDS: TORAdol 30 mg Injection IM ONE (11:13)
[2020-03-24 11:54] VITALS: BP 149/96; PULSE 76
--- NOTE | 2020-03-24 19:26 | XRAY ---
Indication: Pain following injury. Comparison: None 3 view left ankle demonstrates anterior lateral soft tissue swelling and a cuboid accessory ossicle. No other bony, articular, or soft tissue abnormalities.
== END 2020-03-24 12:29 | disposition home or self-care (01) ==
LOC: ED 10:49
DX: S93.402A Sprain of unspecified ligament of left ankle, initial encounter (principal); M25.572 Pain in left ankle and joints of left foot; E11.9 Type 2 diabetes mellitus without complications; Z79.4 Long term (current) use of insulin; I10 Essential (primary) hypertension; Z72.0 Tobacco use; X50.1XXA Overexertion from prolonged static or awkward postures, initial encounter; Y93.89 Activity, other specified; Y92.89 Other specified places as the place of occurrence of the external cause
CPT/HCPCS: 73610; 96372; 99284; J1885

== ENCOUNTER 2022-02-16 15:47 | Emergency (ER) | payer OTHER ==
[2022-02-16] MEDS ORDERED: Sodium Chloride 0.9% 1000 ML 1,000 ML IV STA (16:35)
[2022-02-16] MEDS ORDERED: Zofran 4 MG/2 ML VIAL IV ONE (16:35)
[2022-02-16] MEDS ORDERED: Hydromorphone 1 mg/ml Injection IV ONE (16:35)
[2022-02-16] MEDS ORDERED: Zofran 4 MG/2 ML VIAL ONE (16:39)
[2022-02-16] MEDS ORDERED: Hydromorphone 1 mg/ml Injection ONE (16:40)
[2022-02-16] MEDS ORDERED: Sodium Chloride 0.9% 1000 ML 1,000 ML ONE (16:40)
[2022-02-16 16:48] LABS: Absolute Neutrophil Ct (ANC) 4.69 (1.4-6.9); Basophil (Absolute #) 0.03 (0-0.4); Eosinophil % 0.6 % (0.00-5.0); Eosinophil (Absolute #) 0.06 (0-0.5); Hematocrit 44.8 % (35-47); Hemoglobin 15.1 gm/dl (12.0-16.0); Lymphocyte (Absolute #) 3.69 (1.0-4.6); Lymphocytes % 39.8 % (24.0-44.0); Mean Cell Volume 86.8 fl (78-100); Mean Corpuscular Hemoglobin 29.3 pg (26-32); Mean Corpuscular Hgb Concent. 33.7 g/dl (32-36); Mean Platelet Volume 9.2 fl (7.5-11.0); Monocytes % 8.6 % (0.0-12.0); Neutrophil % 50.7 % (36.0-66.0); Platelet Count 336 K/mm3 (150-450); Red Blood Count 5.16 M/mm3 (4.1-5.4); Red Cell Distribution Width 13.4 % (11.5-14.0); White Blood Count 9.3 K/mm3 (4.0-10.5)
[2022-02-16 16:55] LABS: ALBUMIN 4.4 g/dL (3.5-5.0); ALKALINE PHOSPHATASE 89 U/L (38-126); AMYLASE 73 U/L (30-110); ANION GAP 17.6 MEQ/L (5-15); BLOOD UREA NITROGEN 15 mg/dL (7-17); CHLORIDE 107 mmol/L (98-107); Calcium 9.5 mg/dL (8.4-10.2); Carbon Dioxide 20 mmol/L (22-30); Creatinine 1 0.61 mg/dL (0.52-1.04); EST GLOMERULAR FILTRATION RATE > 60.0 ML/MIN; Glucose 156 mg/dL (74-106); LIPASE 121 U/L (23-300); Potassium 3.9 mmol/L (3.5-5.1); SGOT/AST 22 U/L (14-36); SGPT/ALT 21 U/L (0-35); SODIUM 140 mmol/L (137-145); Total Protein 7.5 g/dL (6.3-8.2)
[2022-02-16] MEDS ORDERED: Reglan 10 MG/2 ML IV ONE (18:14)
[2022-02-16] MEDS ORDERED: Reglan 10 MG/2 ML ONE (18:15)
[2022-02-16 18:50] LABS: Bacteria RARE /HPF (NEGATIVE); Epithelial Cells RARE /HPF (FEW); Mucus SLIGHT /HPF (NEGATIVE); RBC 0-2 /HPF (0-2)
[2022-02-16 18:53] LABS: Appearance CLEAR (CLEAR); Bilirubin NEGATIVE (NEGATIVE); Glucose 500 mg/dL (NEGATIVE); Ketones NEGATIVE (NEGATIVE); Specific Gravity >=1.030 (1.005-1.025)
[2022-02-16 18:54] LABS: Dipstick done @ ? MAIN LAB; Nitrite NEGATIVE (NEGATIVE); Ph 5.5 (5-6); Protein,Urine Dip TRACE (Negative); RBC NEGATIVE Ery/ul (0-5); Urine Cultured Indicated? NO; Urobilinogen 0.2 mg/dL (0-1)
--- NOTE | 2022-02-16 19:25 | ERPHSYRPT ---
- History of Present Illness Time Seen by Provider: 02/16/22 16:10 Historian: patient Exam Limitations: no limitations Patient Subjective Stated Complaint: pt here for nausea , vomiting and loose stools for 4 days now, increased ozempic on . Triage Nursing Assessment: pt alert, resp easy, skin w/d/p. face mask in place, moves all ext well, Physician History: Patient is a 46-year-old male female who was presented to the ER with a complaint of vomiting and epigastric pain she has been sick since starting Ozemp ic a week ago. She has had nausea vomiting diarrhea and abdominal pain no fever chills or sweats she has had no recent abdominal surgery. She is concerned the possibility of pancreatitis with the Ozempic Timing/Duration: week(s) (1) Activities at Onset: none Quality: stabbing Abdominal Pain Onset Location: epigastric Pain Radiation: back Severity of Pain-Max: moderate Severity of Pain-Current: mild Allergies/Adverse Reactions: No Known Drug Allergies Allergy (Verified 02/16/22 16:03) Home Medications: Insulin Glargine,Hum.rec.anlog [Basaglar Kwikpen U-100] 35 units SQ BID 02/16/22 [History] Insulin Lispro [Admelog Solostar] 10 units TID 02/16/22 [History] Semaglutide [Ozempic] 0.5 mg UD 02/16/22 [History] Hx Tetanus, Diphtheria Vaccination/Date Given: No Hx Influenza Vaccination/Date Given: No Hx Pneumococcal Vaccination/Date Given: No Immunizations Up to Date: Yes Travel Risk - International Travel Have you traveled outside of the country in past 3 weeks: No - Coronavirus Screening Are you exhibiting any of the following symptoms?: No Close contact with a COVID-19 positive Pt in past 14-21 Days: No - Vaccine Status Have you recieved a Covid-19 vaccination: Yes Business Job Titles: [employer] - Vaccination Dates Date of 2cond Vaccination (if applicable): 2020 - Review of Systems Constitutional: No Fever, No Chills Eyes: No Symptoms Ears, Nose, & Throat: No Symptoms Respiratory: No Cough, No Dyspnea Cardiac: No Chest Pain, No Edema, No Syncope Abdominal/Gastrointestinal: Abdominal Pain, Nausea, Vomiting, Diarrhea Genitourinary Symptoms: No Dysuria Musculoskeletal: No Back Pain, No Neck Pain Skin: No Rash Neurological: No Dizziness, No Focal Weakness, No Sensory Changes Psychological: No Symptoms Endocrine: No Symptoms All Other Systems: Reviewed and Negative - Past Medical History Pertinent Past Medical History: Yes Neurological History: Migraines ENT History: No Pertinent History Cardiac History: No Pertinent History Respiratory History: No Pertinent History Endocrine Medical History: Diabetes Type II Musculoskeletal History: No Pertinent History GI Medical History: Diverticulitis, Diverticulosis, Gallbladder Disease History: No Pertinent History Psycho-Social History: No Pertinent History Female Reproductive Disorders: No Pertinent History Other Medical History: URETHERAL DIVERTICULITIS-SEES A PHYSICIAN IN [facility] FOR THIS. - Past Surgical History Past Surgical History: Yes Neuro Surgical History: No Pertinent History Cardiac: No Pertinent History Respiratory: No Pertinent History Gastrointestinal: Cholecystectomy Genitourinary: Other Musculoskeletal: No Pertinent History Female Surgical History: No Pertinent History Other Surgical History: urethral diverticulitis - Social History Smoking Status: Current every day smoker How long have you smoked: years Exposure to second hand smoke: Yes Alcohol Use: Socially Drug Use: none Patient Lives Alone: No Significant Family History: diabetes, hypertension - Female History Hx Last Menstrual Period: none Hx Now: No - Nursing Vital Signs Nursing Vital Signs: Initial Vital Signs Temperature 97.2 F 02/16/22 16:02 Pulse Rate 78 02/16/22 16:02 Respiratory Rate 16 02/16/22 16:02 Blood Pressure 136/78 02/16/22 16:02 O2 Sat by Pulse Oximetry 97 02/16/22 16:02 Pain Scale Pain Intensity 2 - Physical Exam General Appearance: moderate distress, alert Eye Exam: PERRL/EOMI, eyes nml inspection Ears, Nose, Throat Exam: normal ENT inspection, pharynx normal, moist mucous membranes Neck Exam: normal inspection, non-tender, supple, full range of motion Respiratory Exam: normal breath sounds, lungs clear, No respiratory distress Cardiovascular Exam: regular rate/rhythm, normal heart sounds Gastrointestinal/Abdomen Exam: tenderness (Epigastrium), No mass Pelvic Exam: not done Rectal Exam: deferred Back Exam: normal inspection, normal range of motion, No CVA tenderness, No vertebral tenderness Extremity Exam: normal inspection, normal range of motion, pelvis stable Neurologic Exam: alert, oriented x 3, cooperative, normal mood/affect, nml c erebellar function, sensation nml, No motor deficits Skin Exam: normal color, warm, dry SpO2 Interpretation: normal SpO2: 96 O2 Delivery: Room Air - Course Nursing assessment & vital signs reviewed: Yes - CT Exams Abdomen/Pelvis CT Interpretation: Tele-radiologist Report Ordered Tests: Active Orders 24 hr Category Date Time Status IV Insertion STAT Care 02/16/22 16:35 Active ABDOMEN AND PELVIS W CONTRAST [CT] Stat Exams 02/16/22 16:35 Taken AMYLASE Stat Lab 02/16/22 16:40 Completed CBC W DIFF Stat Lab 02/16/22 16:40 Completed CMP Stat Lab 02/16/22 16:40 Completed LIPASE Stat Lab 02/16/22 16:40 Completed Lactic Acid Stat Lab 02/16/22 16:45 Completed UA W/RFX CULTURE Stat Lab 02/16/22 16:39 Completed Medication Summary Discontinued Medications Generic Name Dose Route Start Last Admin Trade Name Freq PRN Reason Stop Dose Admin Hydromorphone HCl 1 mg 02/16/22 16:35 02/16/22 16:43 Hydromorphone 1 Mg/1ml Inj 1 Mg/Ml Syringe IV 02/16/22 16:36 1 mg STAT ONE Administration Hydromorphone HCl Confirm 02/16/22 16:40 Hydromorphone 1 Mg/1ml Inj 1 Mg/Ml Syringe Administered 02/16/22 16:41 Dose 1 mg .ROUTE .STK-MED ONE Sodium Chloride 1,000 mls @ 999 mls/hr 02/16/22 16:35 02/16/22 18:40 Sodium Chloride 0.9% 1000 Ml IV 02/16/22 17:35 Infused .Q1H1M STA Infusion Sodium Chloride Confirm 02/16/22 16:40 Sodium Chloride 0.9% 1000 Ml Administered 02/16/22 16:41 Dose 1,000 mls @ ud .ROUTE .STK-MED ONE Metoclopramide HCl 10 mg 02/16/22 18:14 02/16/22 18:16 Metoclopramide Hcl 10 Mg/2 Ml Vial IV 02/16/22 18:15 10 mg STAT ONE Administration Metoclopramide HCl Confirm 02/16/22 18:15 Metoclopramide Hcl 10 Mg/2 Ml Vial Administered 02/16/22 18:16 Dose 10 mg .ROUTE .STK-MED ONE Ondansetron HCl 4 mg 02/16/22 16:35 02/16/22 16:43 Ondansetron Hcl 4 Mg/2 Ml Vial IV 02/16/22 16:36 4 mg STAT ONE Administration Ondansetron HCl Confirm 02/16/22 16:39 Ondansetron Hcl 4 Mg/2 Ml Vial Administered 02/16/22 16:40 Dose 4 mg .ROUTE .STK-MED ONE Lab/Rad Data: Laboratory Result Diagrams 02/16/22 16:40 02/16/22 16:40 Laboratory Results 02/16/22 02/16/22 02/16/22 Range/Units 16:45 16:40 16:40 WBC 9.3 (4.0-10.5) K/mm3 RBC 5.16 (4.1-5.4) M/mm3 Hgb 15.1 (12.0-16.0) gm/dl Hct 44.8 (35-47) % MCV 86.8 (78-100) fl MCH 29.3 (26-32) pg MCHC 33.7 (32-36) g/dl RDW 13.4 (11.5-14.0) % Plt Count 336 (150-450) K/mm3 MPV 9.2 (7.5-11.0) fl Gran % 50.7 (36.0-66.0) % Eos # (Auto) 0.06 (0-0.5) Absolute Lymphs (auto) 3.69 (1.0-4.6) Absolute Monos (auto) 0.80 (0.0-1.3) Lymphocytes % 39.8 (24.0-44.0) % Monocytes % 8.6 (0.0-12.0) % Eosinophils % 0.6 (0.00-5.0) % Basophils % 0.3 (0.0-0.4) % Absolute Granulocytes 4.69 (1.4-6.9) Basophils # 0.03 (0-0.4) Sodium 140 (137-145) mmol/L Potassium 3.9 (3.5-5.1) mmol/L Chloride 107 (98-107) mmol/L Carbon Dioxide 20 L (22-30) mmol/L Anion Gap 17.6 H (5-15) MEQ/L BUN 15 (7-17) mg/dL Creatinine 0.61 (0.52-1.04) mg/dL Estimated GFR > 60.0 ML/MIN Glucose 156 H (74-106) mg/dL Lactic Acid 1.1 (0.4-2.0) Calcium 9.5 (8.4-10.2) mg/dL Total Bilirubin 0.60 (0.2-1.3) mg/dL AST 22 (14-36) U/L ALT 21 (0-35) U/L Alkaline Phosphatase 89 (38-126) U/L Serum Total Protein 7.5 (6.3-8.2) g/dL Albumin 4.4 (3.5-5.0) g/dL Amylase 73 (30-110) U/L Lipase 121 (23-300) U/L Urinalys Dipstick Clnc Urine Color (YELLOW) Urine Appearance (CLEAR) Urine pH (5-6) Ur Specific [place] (1.005-1.025) POC Urine Protein Conf (Negative) Urine Ketones (NEGATIVE) Urine Nitrite (NEGATIVE) Urine Bilirubin (NEGATIVE) Urine Urobilinogen (0-1) mg/dL Urine Leukocytes (NEGATIVE) Urine WBC (Auto) (0-5) /HPF Urine RBC (Auto) (0-2) /HPF U Epithel Cells (Auto) (FEW) /HPF Urine Bacteria (Auto) (NEGATIVE) /HPF Urine RBC (0-5) Ifeanyi/ul Urine Mucus (Auto) (NEGATIVE) /HPF Ur Culture Indicated? Urine Glucose (NEGATIVE) mg/dL 02/16/22 Range/Units 16:39 WBC (4.0-10.5) K/mm3 RBC (4.1-5.4) M/mm3 Hgb (12.0-16.0) gm/dl Hct (35-47) % MCV (78-100) fl MCH (26-32) pg MCHC (32-36) g/dl RDW (11.5-14.0) % Plt Count (150-450) K/mm3 MPV (7.5-11.0) fl Gran % (36.0-66.0) % Eos # (Auto) (0-0.5) Absolute Lymphs (auto) (1.0-4.6) Absolute Monos (auto) (0.0-1.3) Lymphocytes % (24.0-44.0) % Monocytes % (0.0-12.0) % Eosinophils % (0.00-5.0) % Basophils % (0.0-0.4) % Absolute Granulocytes (1.4-6.9) Basophils # (0-0.4) Sodium (137-145) mmol/L Potassium (3.5-5.1) mmol/L Chloride (98-107) mmol/L Carbon Dioxide (22-30) mmol/L Anion Gap (5-15) MEQ/L BUN (7-17) mg/dL Creatinine (0.52-1.04) mg/dL Estimated GFR ML/MIN Glucose (74-106) mg/dL Lactic Acid (0.4-2.0) Calcium (8.4-10.2) mg/dL Total Bilirubin (0.2-1.3) mg/dL AST (14-36) U/L ALT (0-35) U/L Alkaline Phosphatase (38-126) U/L Serum Total Protein (6.3-8.2) g/dL Albumin (3.5-5.0) g/dL Amylase (30-110) U/L Lipase (23-300) U/L Urinalys Dipstick Clnc MAIN LAB Urine Color YELLOW (YELLOW) Urine Appearance CLEAR (CLEAR) Urine pH 5.5 (5-6) Ur Specific [place] >=1.030 (1.005-1.025) POC Urine Protein Conf TRACE (Negative) Urine Ketones NEGATIVE (NEGATIVE) Urine Nitrite NEGATIVE (NEGATIVE) Urine Bilirubin NEGATIVE (NEGATIVE) Urine Urobilinogen 0.2 (0-1) mg/dL Urine Leukocytes NEGATIVE (NEGATIVE) Urine WBC (Auto) 6-10 (0-5) /HPF Urine RBC (Auto) 0-2 (0-2) /HPF U Epithel Cells (Auto) RARE (FEW) /HPF Urine Bacteria (Auto) RARE (NEGATIVE) /HPF Urine RBC NEGATIVE (0-5) Ifeanyi/ul Urine Mucus (Auto) SLIGHT (NEGATIVE) /HPF Ur Culture Indicated? NO Urine Glucose 500 (NEGATIVE) mg/dL - Progress Progress: improved - Departure Departure Disposition: Home Clinical Impression: Gastritis Condition: Stable Critical Care Time: No Referrals: TIFFANIE MATTA [Primary Care Provider] - Follow up/PCP as directed Prescriptions: Hydrocodone/Acetaminophen [Hydrocodone-Acetamin 5-325 mg] 1 tab PO Q6HPRN PRN 3 Days #12 tablet MDD 4 PRN Reason: Pain PANTOPRAZOLE 40 mg Tablet [Protonix 40MG Tablet] 40 mg PO QAM 30 Days #30 tab MDD 1 Metoclopramide HCl 10 mg [Reglan 10 MG] 10 mg PO DAILY 3 Days #15 tablet
[2022-02-16 19:37] VITALS: BP 97/55; PULSE 72; O2SAT 98
--- NOTE | 2022-02-17 08:39 | XRAY ---
Indication: Epigastric pain, nausea, vomiting, and diarrhea. Multiple contiguous axial images obtained through the abdomen and pelvis using 80 cc Isovue 370 contrast. Comparison: September 23, 2018. Lung bases again demonstrates right middle lobe calcified granuloma. No infiltrate or effusion. Heart not enlarged. Noncontrasted stomach and bowel loops appear nonobstructed again with normal appendix. Again mild scattered descending and sigmoid diverticulosis without diverticulitis. Stable mild fatty liver, partial duplication right ureter, cholecystectomy clips, and uterine IUD. No free fluid/air. Remaining liver, pancreas, spleen, adrenal glands, kidneys, ureters, bladder, uterus, and aorta are unremarkable. No pathologic retroperitoneal lymphadenopathy. Osseous structures intact. Impression: 1. Stable fatty liver, colonic diverticulosis, and right middle lobe calcified granuloma. 2. Remaining CT abdomen/pelvis with contrast exam is negative.
== END 2022-02-16 19:42 | disposition home or self-care (01) ==
LOC: ED 15:47
DX: K29.70 Gastritis, unspecified, without bleeding (principal); R11.2 Nausea with vomiting, unspecified; R10.13 Epigastric pain; R19.7 Diarrhea, unspecified; E11.9 Type 2 diabetes mellitus without complications; Z72.0 Tobacco use; Z79.4 Long term (current) use of insulin; Z79.891 Long term (current) use of opiate analgesic
CPT/HCPCS: 36000; 36415; 74177; 80053; 81015; 82150; 83605; 83690; 85025; 96374; 96375; 99284; J1170; J2405

== ENCOUNTER 2022-04-25 20:53 | Emergency (ER) | payer OTHER ==
[2022-04-25] MEDS ORDERED: NORCO 5/325 MG PO ONE (21:10)
[2022-04-25] MEDS ORDERED: SUBLIMAZE 100 MCG/2 ML INTRANASAL ONE (21:10)
[2022-04-25] MEDS ORDERED: Adacel Vial IM ONE ×2 (21:11→21:19)
[2022-04-25] MEDS ORDERED: Vibramycin 100 MG PO ONE (21:11)
[2022-04-25] MEDS ORDERED: BACIGUENT PACKET TP ONE (21:14)
--- NOTE | 2022-04-25 21:14 | ERPHSYRPT ---
- History of Present Illness Source: patient Exam Limitations: no limitations Patient Subjective Stated Complaint: had catfish fin stuck in my arm and had to rip it out Triage Nursing Assessment: pt was with her son fishing and he would not take the fish off the hook. Pt attempted and the catfish fin got stuck in her arm and she had to rip the fish out of her arm. c/o rt lower arm pain. sm laceration noted from fish fin puncture, approx 0.2 cm L. No bleeding noted. Physician History: The patient is a 47-year-old female who is right-hand dominant presents with a chief complaint of a catfish amber/whiskers/sprain injury to her mid right f orearm. Onset was just prior to arrival to the emergency department. She apparently was fishing with her son and her son caught a catfish which he managed to unhook and she went to throw back in a water when it got loose and impaled her right forearm with either its fin or riskier. Since that time, she does endorse having severe throbbing pain noted to the mid right forearm and some numbness in her right hand. She states that her tetanus prophylaxis is not up-to-date. The bleeding had resolved by the time she arrived to the emergency department. She has not take anything for pain prior to arrival. A family member is reportedly driving her home. The patient is a diabetic. Allergies/Adverse Reactions: No Known Drug Allergies Allergy (Verified 04/25/22 21:05) Home Medications: Insulin Lispro [Admelog Solostar] 10 units TID 02/16/22 [History] Hx Tetanus, Diphtheria Vaccination/Date Given: No Hx Influenza Vaccination/Date Given: No Hx Pneumococcal Vaccination/Date Given: No Immunizations Up to Date: No Travel Risk - International Travel Have you traveled outside of the country in past 3 weeks: No - Coronavirus Screening Are you exhibiting any of the following symptoms?: No Close contact with a COVID-19 positive Pt in past 14-21 Days: No - Vaccine Status Have you recieved a Covid-19 vaccination: Yes [employer]: [employer] - Vaccination Dates Date of 2cond Vaccination (if applicable): . - Review of Systems Constitutional: No Fever, No Chills Skin: Other (Puncture wound to the right forearm.) Neurological: Parasthesia All Other Systems: Reviewed and Negative - Past Medical History Pertinent Past Medical History: Yes Neurological History: Migraines ENT History: No Pertinent History Cardiac History: No Pertinent History Respiratory History: No Pertinent History Endocrine Medical History: Diabetes Type II Musculoskeletal History: No Pertinent History GI Medical History: Diverticulitis, Diverticulosis, Gallbladder Disease History: No Pertinent History Psycho-Social History: No Pertinent History Female Reproductive Disorders: No Pertinent History Other Medical History: URETHERAL DIVERTICULITIS-SEES A PHYSICIAN IN [facility] FOR THIS. - Past Surgical History Past Surgical History: Yes Neuro Surgical History: No Pertinent History Cardiac: No Pertinent History Respiratory: No Pertinent History Gastrointestinal: Cholecystectomy Genitourinary: Other Musculoskeletal: No Pertinent History Female Surgical History: No Pertinent History Other Surgical History: urethral diverticulitis - Social History Smoking Status: Current every day smoker How long have you smoked: 30 yrs Exposure to second hand smoke: Yes Alcohol Use: Socially Drug Use: none Patient Lives Alone: No Significant Family History: diabetes, hypertension - Female History Hx Now: No - Nursing Vital Signs Nursing Vital Signs: Initial Vital Signs Temperature 97.1 F 04/25/22 20:54 Pulse Rate 84 04/25/22 20:54 Respiratory Rate 18 04/25/22 20:54 Blood Pressure 163/81 04/25/22 20:54 O2 Sat by Pulse Oximetry 96 04/25/22 20:54 Pain Scale Pain Intensity 5 - Physical Exam General Appearance: no apparent distress, alert, obese Respiratory Exam: normal breath sounds, lungs clear, airway intact, No chest tenderness, No respiratory distress Cardiovascular Exam: regular rate/rhythm, normal heart sounds, capillary refill <2 sec, No murmur, No friction rub, No gallop Extremity Exam: other (There appeared to be a 1 cm in diameter puncture wound noted to the lateral aspect of mid right forearm. There is no active bleeding. There is no evidence of surrounding cellulitis. Compartments were soft. Motor function was intact in the right hand) Neurologic Exam: other (Sensation to gross sensation to gross touch was intact and equal in the ulnar, radial and median nerve distributions of the hands) Skin Exam: normal color, warm, dry, other (There appeared to be a 1 cm in diameter puncture wound noted to the lateral aspect of mid right forearm. There is no active bleeding. There is no evidence of surrounding cellulitis.) SpO2 Interpretation: normal SpO2: 98 O2 Delivery: Room Air - Course Nursing assessment & vital signs reviewed: Yes - Radiology Exams Forearm X-ray Interpretation: Interpreted by me, Reviewed by me, Negative (No evidence of retained foreign body, fracture or dislocation.) Ordered Tests: Active Orders 24 hr Category Date Time Status Wound Care STAT Care 04/25/22 21:11 Completed FOREARM Stat Exams 04/25/22 21:12 Completed Medication Summary Discontinued Medications Generic Name Dose Route Start Last Admin Trade Name Aryan PRN Reason Stop Dose Admin Hydrocodone Bitart/Acetaminophen 2 tab 04/25/22 21:10 04/25/22 21:23 Hydrocodone/Apap 5/325 Mg Tablet PO 04/25/22 21:11 2 tab STAT ONE Administration Hydrocodone Bitart/Acetaminophen Confirm 04/25/22 21:18 Hydrocodone/Apap 5/325 Mg Tablet Administered 04/25/22 21:19 Dose 2 tab .ROUTE .STK-MED ONE Bacitracin Zinc 0.9 each 04/25/22 21:14 04/25/22 21:27 Bacitracin Packet 1 Each Pckt TP 04/25/22 21:15 0.9 each STAT ONE Administration Diphtheria/Tetanus/Acell Pertussis 0.5 ml 04/25/22 21:11 04/25/22 21:24 Tdap --Diph,Pertuss(Acell),Tet Vac/Pf 0.5 Ml Vial IM 04/25/22 21:12 0.5 ml .ONCE ONE Administration Diphtheria/Tetanus/Acell Pertussis Confirm 04/25/22 21:19 Tdap --Diph,Pertuss(Acell),Tet Vac/Pf 0.5 Ml Vial Administered 04/25/22 21:20 Dose 0.5 ml IM .STK-MED ONE Doxycycline Hyclate 100 mg 04/25/22 21:11 04/25/22 21:22 Doxycycline Hyclate 100 Mg Tablet PO 04/25/22 21:12 100 mg STAT ONE Administration Doxycycline Hyclate Confirm 04/25/22 21:18 Doxycycline Hyclate 100 Mg Tablet Administered 04/25/22 21:19 Dose 100 mg .ROUTE .STK-MED ONE Fentanyl Citrate 100 mcg 04/25/22 21:10 04/25/22 22:00 Fentanyl Citrate 100 Mcg/2 Ml* Vial INTRANASAL 04/25/22 21:11 Not Given STAT ONE Hydromorphone HCl 0.5 mg 04/25/22 21:17 04/25/22 21:56 Hydromorphone 1 Mg/1ml Inj 1 Mg/Ml Syringe SQ 04/25/22 21:18 0.5 mg STAT ONE Administration Hydromorphone HCl Confirm 04/25/22 21:54 Hydromorphone 1 Mg/1ml Inj 1 Mg/Ml Syringe Administered 04/25/22 21:55 Dose 1 mg .ROUTE .STK-MED ONE - Progress Progress: improved Progress Note: 04/25/22 22:18 Inspect reviewed and it appears the patient had 12 Gustavus filled on February 16, 2022. Unable to transmit the patient's Gustavus prescription to her pharmacy so a print out had to be given with instructions to fill written on the prescription. 04/26/22 04:07 The patient presents with a chief complaint of a puncture wound from either the whiskers or fan of a catfish. I suspect her pain is secondary to the toxins associated with this kind of wound. X-ray showed no evidence of retained foreign body. Given the nature of the wound, I deferred primary closure and believe this can heal via secondary intention. She will be prescribed doxycycline given her history of diabetes and to also cover for water organisms such as vibrio. Instructions for wound care was given to include application of bacitracin to the affected region until healed. Pain medications will also be prescribed. ED return precautions for wound infection, specifically cellulitis is given. Her tetanus prophylaxis was updated. She agreed with and verbally understood the discharge plan and was comfortable being discharged home. Counseled pt/family regarding: diagnosis, need for follow-up, rad results - Departure Departure Disposition: Home Clinical Impression: Puncture wound of right forearm Condition: Stable Critical Care Time: No Referrals: TIFFANIE MATTA [Primary Care Provider] - Follow up/PCP as directed Instructions: Wound Care (DC) Additional Instructions: Please apply bacitracin to the wound until healed. Please return to the emergency department if you notice any increase in significant redness, swelling, pus drainage or redness creeping up or down the right arm and/or if you develop a fever, specifically an oral temperature of 100.4 Fahrenheit or greater. Prescriptions: Hydrocodone/Acetaminophen [Hydrocodone-Acetamin 5-325 mg] 1 - 2 each PO Q6HPRN PRN #12 tablet MDD 6 PRN Reason: Pain Doxycycline Hyclate 100 mg [Vibramycin 100 MG] 100 mg PO BID #14 tab
[2022-04-25] MEDS ORDERED: Hydromorphone 1 mg/ml Injection SQ ONE (21:17)
[2022-04-25] MEDS ORDERED: Vibramycin 100 MG ONE (21:18)
[2022-04-25] MEDS ORDERED: NORCO 5/325 MG ONE (21:18)
--- NOTE | 2022-04-25 21:30 | XRAY ---
Indication: Possible foreign body fishing. Comparison: None 2 view right forearm obtained. No bony, articular, or soft tissue abnormalities.
[2022-04-25] MEDS ORDERED: Hydromorphone 1 mg/ml Injection ONE (21:54)
[2022-04-25 22:33] VITALS: BP 136/88; PULSE 78
[2022-04-26 02:59] VITALS: O2SAT 98
== END 2022-04-25 22:33 | disposition home or self-care (01) ==
LOC: ED 20:53
DX: S51.831A Puncture wound without foreign body of right forearm, initial encounter (principal); W56.52XA Struck by other fish, initial encounter; Y93.19 Activity, other involving water and watercraft; M79.631 Pain in right forearm; R20.2 Paresthesia of skin; E11.9 Type 2 diabetes mellitus without complications; Z72.0 Tobacco use; Z79.4 Long term (current) use of insulin; Z79.891 Long term (current) use of opiate analgesic
CPT/HCPCS: 73090; 90471; 90715; 96372; 99283; J1170; A9270-GY

== ENCOUNTER 2023-11-06 11:02 | Observation (INO) | payer OTHER ==
--- NOTE | 2023-11-06 11:32 | ERPHSYRPT ---
- History of Present Illness Time Seen by Provider: 11/06/23 11:20 Source: patient Exam Limitations: no limitations Patient Subjective Stated Complaint: pt here for fast heart rate sudden onset at work today and then developed chest pain and sob, Triage Nursing Assessment: pt alert, walked in, anxious at times, resp easy, chest clear. moves all ext well Physician History: 48yo f presents for chest discomfort, heart palpitations. Pt reports this started 2h before presentation while she was standing at work. Pt states she has never felt palpitations before. Pt states her chest feels tight diffusely, denies any actual pain, reports she feels like it is difficult for her to take a deep breath. Pt denies pain radiating into back/shoulder/jaw, denies n/v, denies diaphoresis/fevers. Pt does report hx of anxiety in the past w/ a similar episode occurring about 10yrs ago. Timing/Duration: today, hour(s) (2) Activities at Onset: none Severity of Dyspnea-Max: mild Severity of Dyspnea-Current: mild Possible Cause: no prior episodes Modifying Factors: Improves With: nothing Associated Symptoms: anxiety, chest pain/discomfort, No cough, No fever, No lightheadedness, No wheezing, No calf pain, No painful breathing, No productive cough, No sweating Allergies/Adverse Reactions: No Known Drug Allergies Allergy (Verified 11/06/23 11:26) Home Medications: Unobtainable 11/06/23 [History] Hx Tetanus, Diphtheria Vaccination/Date Given: No Hx Influenza Vaccination/Date Given: No Hx Pneumococcal Vaccination/Date Given: No Immunizations Up to Date: Yes Travel Risk - International Travel Have you traveled outside of the country in past 3 weeks: No - Coronavirus Screening Are you exhibiting any of the following symptoms?: No Close contact with a COVID-19 positive Pt in past 14-21 Days: No - Vaccine Status Have you recieved a Covid-19 vaccination: Yes 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[employer] - Vaccination Dates Date of 2cond Vaccination (if applicable): 2020 - Review of Systems Constitutional: No Fever, No Chills, No Fatigue Respiratory: Dyspnea, No Cough, No Wheezing Cardiac: Chest Pain, Palpitations, No Edema, No Syncope Abdominal/Gastrointestinal: No Symptoms Genitourinary Symptoms: No Symptoms - Past Medical History Pertinent Past Medical History: Yes Neurological History: Migraines ENT History: No Pertinent History Cardiac History: No Pertinent History Respiratory History: No Pertinent History Endocrine Medical History: Diabetes Type II Musculoskeletal History: No Pertinent History GI Medical History: Diverticulitis, Diverticulosis, Gallbladder Disease History: No Pertinent History Psycho-Social History: No Pertinent History Female Reproductive Disorders: No Pertinent History Other Medical History: URETHERAL DIVERTICULITIS-SEES A PHYSICIAN IN [facility] FOR THIS. - Past Surgical History Past Surgical History: Yes Neuro Surgical History: No Pertinent History Cardiac: No Pertinent History Respiratory: No Pertinent History Gastrointestinal: Cholecystectomy Genitourinary: Other Musculoskeletal: No Pertinent History Female Surgical History: No Pertinent History Other Surgical History: urethral diverticulitis - Social History Smoking Status: Current every day smoker How long have you smoked: 30 yrs Exposure to second hand smoke: Yes Alcohol Use: Socially Drug Use: none Patient Lives Alone: No Significant Family History: diabetes, hypertension - Female History Hx Last Menstrual Period: iud Hx Now: No - Nursing Vital Signs Nursing Vital Signs: Initial Vital Signs Pulse Rate 81 11/06/23 11:02 Respiratory Rate 19 11/06/23 11:02 Blood Pressure 170/96 11/06/23 11:02 O2 Sat by Pulse Oximetry 99 11/06/23 11:02 Pain Scale Pain Intensity 2 - Physical Exam General Appearance: no apparent distress, alert, anxiety Eye Exam: PERRL/EOMI Respiratory Exam: normal breath sounds, lungs clear, airway intact Cardiovascular/Chest Exam: normal heart sounds, normal peripheral pulses, other, No murmur, No edema Abdominal/Gastrointestinal Exam: soft, No tenderness Neurologic Exam: alert, oriented x 3, cooperative SpO2 Interpretation: normal SpO2: 99 O2 Delivery: Room Air - Course EKG Interpreted by Me: RATE (84), Sinus Rhythm, NORMAL AXIS, Other (multiple PVCs; no ST changes that would suggest ischemia) Ordered Tests: Active Orders 24 hr Category Date Time Status EKG-ER Only STAT Care 11/06/23 11:14 Active CHEST 1 VIEW (PORTABLE) Stat Exams 11/06/23 11:14 Taken CBC W DIFF Stat Lab 11/06/23 11:00 Completed CMP Stat Lab 11/06/23 11:00 Completed CULTURE,URINE Stat Lab 11/06/23 12:37 Received D-DIMER QUANTITATIVE Stat Lab 11/06/23 12:00 Completed NT PRO BNPII Stat Lab 11/06/23 12:00 Completed TROPONIN Q4H Lab 11/06/23 11:00 Completed TROPONIN Q4H Lab 11/06/23 15:15 Ordered TROPONIN Q4H Lab 11/06/23 19:15 Ordered UA W/RFX UR CULTURE Stat Lab 11/06/23 12:37 Completed Respiratory Therapy Assessment DAILY RT 11/06/23 12:04 Active Medication Summary Discontinued Medications Generic Name Dose Route Start Last Admin Trade Name Aryan PRN Reason Stop Dose Admin Albuterol/Ipratropium 3 ml 11/06/23 11:55 11/06/23 12:02 Ipratropium/Albuterol Sulfate 3 Ml Ampul.Neb IH 11/06/23 11:56 3 ml STAT ONE Administration Albuterol/Ipratropium Confirm 11/06/23 12:00 Ipratropium/Albuterol Sulfate 3 Ml Ampul.Neb Administered 11/06/23 12:01 Dose 3 ml IH .STK-MED ONE Ceftriaxone Sodium/Dextrose 1 g in 50 mls @ 100 mls/hr 11/06/23 13:28 11/06/23 13:44 Rocephin 1 Gm-D5w 50 Ml Bag IV 11/06/23 13:57 100 ml/hr STAT STA 100 mls/hr Administration Sodium Chloride 1,000 mls @ 999 mls/hr 11/06/23 13:29 11/06/23 13:43 Sodium Chloride 0.9% 1000 Ml IV 11/06/23 14:29 999 mls/hr .Q1H1M STA Administration Sodium Chloride Confirm 11/06/23 13:36 Sodium Chloride 0.9% 1000 Ml Administered 11/06/23 13:37 Dose 1,000 mls @ ud .ROUTE .STK-MED ONE Ceftriaxone Sodium/Dextrose Confirm 11/06/23 13:36 Rocephin 1 Gm-D5w 50 Ml Bag Administered 11/06/23 13:37 Dose 1 g in 50 mls @ ud IV .STK-MED ONE Lorazepam 0.5 mg 11/06/23 12:25 11/06/23 12:32 Lorazepam 0.5 Mg Tablet PO 11/06/23 12:26 0.5 mg STAT ONE Administration Lorazepam Confirm 11/06/23 12:30 Lorazepam 1 Mg Tablet Administered 11/06/23 12:31 Dose 1 mg .ROUTE .STK-MED ONE Lab/Rad Data: Laboratory Result Diagrams 11/06/23 11:00 11/06/23 11:00 Laboratory Results 11/06/23 11/06/23 11/06/23 Range/Units 12:37 12:00 12:00 WBC (4.0-10.5) x10^3/uL RBC (4.1-5.4) x10^6/uL Hgb (12.0-16.0) g/dL Hct (35-47) % MCV (78-100) fL MCH (26-32) pg MCHC (32-36) g/dL RDW (11.5-14.0) % Plt Count (150-450) x10^3/uL MPV (7.5-11.0) fL Gran % (36.0-66.0) % Immature Gran % (Auto) (0.00-0.4) % Nucleat RBC Rel Count (0.00-0.1) % Eos # (Auto) (0-0.5) x10^3/uL Immature Gran # (Auto) (0.00-0.03) x10^3u/L Absolute Lymphs (auto) (1.0-4.6) x10^3/uL Absolute Monos (auto) (0.0-1.3) x10^3/uL Absolute Nucleated RBC (0.00-0.01) x10^3u/L Lymphocytes % (24.0-44.0) % Monocytes % (0.0-12.0) % Eosinophils % (0.00-5.0) % Basophils % (0.0-0.4) % Absolute Granulocytes (1.4-6.9) x10^3/uL Basophils # (0-0.4) x10^3/uL D-Dimer 0.27 (0.0-0.50) mg/L Sodium (137-145) mmol/L Potassium (3.5-5.1) mmol/L Chloride (98-107) mmol/L Carbon Dioxide (22-30) mmol/L Anion Gap (5-15) MEQ/L BUN (7-17) mg/dL Creatinine (0.52-1.04) mg/dL Estimated GFR ML/MIN Glucose (74-106) mg/dL Calcium (8.4-10.2) mg/dL Total Bilirubin (0.2-1.3) mg/dL AST (14-36) U/L ALT (0-35) U/L Alkaline Phosphatase (38-126) U/L Troponin I (0.000-0.034) ng/mL NT-Pro-B Natriuret Pep 147 (<300) pg/mL Serum Total Protein (6.3-8.2) g/dL Albumin (3.5-5.0) g/dL Urine Color Yellow (Yellow) Urine Appearance Cloudy A (Clear) Urine pH 5.0 (4.6-8.0) Ur Specific Portal >=1.030 A (1.005-1.030) Urine Protein Negative (Negative) Urine Glucose (UA) >=1000 A (Negative) mg/dL Urine Ketones Negative (Negative) Urine Blood Trace (Negative) Urine Nitrite Positive A (Negative) Urine Bilirubin Negative (Negative) Urine Urobilinogen 0.2 (0.2) mg/dL Ur Leukocyte Esterase Negative (Negative) U Hyaline Cast (Auto) NONE SEEN (0-2) /LPF Urine Microscopic RBC 0-2 (0-5) /HPF Urine Microscopic WBC 6-10 A (0-5) /HPF Ur Epithelial Cells Rare (None Seen) /HPF Urine Bacteria Many A (None Seen) /HPF Urine Culture Reflexed YES (NO) 11/06/23 11/06/23 11/06/23 Range/Units 11:00 11:00 11:00 WBC 6.6 (4.0-10.5) x10^3/uL RBC 4.93 (4.1-5.4) x10^6/uL Hgb 14.3 (12.0-16.0) g/dL Hct 42.8 (35-47) % MCV 86.8 (78-100) fL MCH 29.0 (26-32) pg MCHC 33.4 (32-36) g/dL RDW 12.9 (11.5-14.0) % Plt Count 289 (150-450) x10^3/uL MPV 10.4 (7.5-11.0) fL Gran % 51.3 (36.0-66.0) % Immature Gran % (Auto) 0.2 (0.00-0.4) % Nucleat RBC Rel Count 0.0 (0.00-0.1) % Eos # (Auto) 0.10 (0-0.5) x10^3/uL Immature Gran # (Auto) 0.01 (0.00-0.03) x10^3u/L Absolute Lymphs (auto) 2.62 (1.0-4.6) x10^3/uL Absolute Monos (auto) 0.45 (0.0-1.3) x10^3/uL Absolute Nucleated RBC 0.00 (0.00-0.01) x10^3u/L Lymphocytes % 39.6 (24.0-44.0) % Monocytes % 6.8 (0.0-12.0) % Eosinophils % 1.5 (0.00-5.0) % Basophils % 0.6 (0.0-0.4) % Absolute Granulocytes 3.40 (1.4-6.9) x10^3/uL Basophils # 0.04 (0-0.4) x10^3/uL D-Dimer (0.0-0.50) mg/L Sodium 135 L (137-145) mmol/L Potassium 4.2 (3.5-5.1) mmol/L Chloride 105 (98-107) mmol/L Carbon Dioxide 22 (22-30) mmol/L Anion Gap 11.8 (5-15) MEQ/L BUN 16 (7-17) mg/dL Creatinine 0.64 (0.52-1.04) mg/dL Estimated GFR 108.9 ML/MIN Glucose 324 H (74-106) mg/dL Calcium 9.2 (8.4-10.2) mg/dL Total Bilirubin 0.60 (0.2-1.3) mg/dL AST 20 (14-36) U/L ALT 26 (0-35) U/L Alkaline Phosphatase 148 H (38-126) U/L Troponin I < 0.012 (0.000-0.034) ng/mL NT-Pro-B Natriuret Pep (<300) pg/mL Serum Total Protein 6.8 (6.3-8.2) g/dL Albumin 4.0 (3.5-5.0) g/dL Urine Color (Yellow) Urine Appearance (Clear) Urine pH (4.6-8.0) Ur Specific Portal (1.005-1.030) Urine Protein (Negative) Urine Glucose (UA) (Negative) mg/dL Urine Ketones (Negative) Urine Blood (Negative) Urine Nitrite (Negative) Urine Bilirubin (Negative) Urine Urobilinogen (0.2) mg/dL Ur Leukocyte Esterase (Negative) U Hyaline Cast (Auto) (0-2) /LPF Urine Microscopic RBC (0-5) /HPF Urine Microscopic WBC (0-5) /HPF Ur Epithelial Cells (None Seen) /HPF Urine Bacteria (None Seen) /HPF Urine Culture Reflexed (NO) - Progress Progress: unchanged Air Movement: fair Progress Note: 11/06/23 13:10 re-examined after given dose of PO ativan, pt reports it initially helped but she is feeling sob again pt saturating well, placed on 2L O2 for comfort, vitally stable, still showing PVCs on monitor trop negative, electrolytes normal, cxr clear, lungs clear on exam, d dimer negative repeat trop pending Heart score: 5 will plan for admission, cardiology evaluation 11/06/23 13:47 found to have UTI - given rocephin, 1L NS bolus pt feeling less SOB 11/06/23 14:48 Dr Mariano accepts for admission to obs Blood Culture(s) Obtained: No Antibiotics given: Yes Discussed with Dr.: Other (Dr Mariano) Will see patient in: hospital (observation) Counseled pt/family regarding: lab results, diagnosis, need for follow-up, rad results Medical Desision Making - Risk of complications The pt has a mod risk of morbidity or mortality based on: Need for prescription drug management - Departure Departure Disposition: Observation Clinical Impression: Shortness of breath, Anxiety UTI (urinary tract infection) Qualifiers: Urinary tract infection type: acute cystitis Hematuria presence: without hematuria Qualified Code(s): N30.00 - Acute cystitis without hematuria Condition: Stable Critical Care Time: No [facility] - Follow up/PCP as directed
[2023-11-06 11:43] LABS: BASOPHIL % 0.6 % (0.0-0.4); Basophil (Absolute #) 0.04 x10^3/uL (0-0.4); Eosinophil % 1.5 % (0.00-5.0); Hematocrit 42.8 % (35-47); Hemoglobin 14.3 g/dL (12.0-16.0); IMMATURE GRAN # 0.01 x10^3u/L (0.00-0.03); IMMATURE GRAN % 0.2 % (0.00-0.4); Lymphocyte (Absolute #) 2.62 x10^3/uL (1.0-4.6); Lymphocytes % 39.6 % (24.0-44.0); Mean Cell Volume 86.8 fL (78-100); Mean Corpuscular Hgb Concent. 33.4 g/dL (32-36); Mean Platelet Volume 10.4 fL (7.5-11.0); Monocyte (Absolute #) 0.45 x10^3/uL (0.0-1.3); Monocytes % 6.8 % (0.0-12.0); Neutrophil % 51.3 % (36.0-66.0); Platelet Count 289 x10^3/uL (150-450); Red Blood Count 4.93 x10^6/uL (4.1-5.4); Red Cell Distribution Width 12.9 % (11.5-14.0); White Blood Count 6.6 x10^3/uL (4.0-10.5)
[2023-11-06 11:50] LABS: ANION GAP 11.8 MEQ/L (5-15); BILIRUBIN,TOTAL 0.6 mg/dL (0.2-1.3); Calcium 9.2 mg/dL (8.4-10.2); Creatinine 1 0.64 mg/dL (0.52-1.04); EST GLOMERULAR FILTRATION RATE 108.9 ML/MIN; Potassium 4.2 mmol/L (3.5-5.1); Total Protein 6.8 g/dL (6.3-8.2)
[2023-11-06] MEDS ORDERED: DUONEB 0.5-3 MG/3 ml Neb IH ONE ×2 (11:55→12:00)
[2023-11-06] MEDS ORDERED: Ativan 0.5 MG PO ONE (12:25)
[2023-11-06] MEDS ORDERED: Ativan 1 MG ONE (12:30)
[2023-11-06 12:54] LABS: Appearance Cloudy (Clear); Bacteria Many /HPF (None Seen); Bilirubin Negative (Negative); Blood Trace (Negative); Epithelial Cells Rare /HPF (None Seen); Glucose, Urine >=1000 mg/dL (Negative); Hyaline Casts NONE SEEN /LPF (0-2); Ketones Negative (Negative); Leukocyte Esterase Negative (Negative); Nitrite Positive (Negative); Protein,Urine Dip Negative (Negative); RBC 0-2 /HPF (0-5); Specific Gravity >=1.030 (1.005-1.030); Urobilinogen 0.2 mg/dL (0.2)
[2023-11-06 12:55] LABS: ADD URINE CULTURE? YES (NO)
[2023-11-06] MEDS ORDERED: ROCEPHIN 1 Gm-D5w 50 ml Bag** 1 G/50 ML IVPB IV STA (13:28)
[2023-11-06] MEDS ORDERED: Sodium Chloride 0.9% 1000 ML 1,000 ML IV STA (13:29)
[2023-11-06] MEDS ORDERED: ROCEPHIN 1 Gm-D5w 50 ml Bag** 1 G/50 ML IVPB IV ONE (13:36)
[2023-11-06] MEDS ORDERED: Sodium Chloride 0.9% 1000 ML 1,000 ML ONE (13:36)
--- NOTE | 2023-11-06 15:55 | PCM.HP ---
History of Present Illness - Chief Complaint Chief Complaint: anxiety Date: 11/06/23 History of Present Illness: is a 48 year old female with PMHX of type II DM, diverticulitis, migranes, and daily smoker. She presented in ER today for chest discomfort, heart palpitations. Pt reports this started 2h before presentation while she was standing at work. Pt states she has never felt palpitations before. Pt states her chest feels tight diffusely, denies any actual pain, reports she feels like it is difficult for her to take a deep breath. Pt denies pain radiating into back/shoulder/jaw, denies n/v, denies diaphoresis/fevers. Pt does report hx of anxiety in the past w/ a similar episode occurring about 10yrs ago. Xanax gave in ER. Will start hydroxyzine. Trop X1 negative. She stopped using her insulin pump 2 weeks ago. Glucose level on admission is 324. She has an upcoming appointment with endocrinology, Dr. Bailey. She reports her blood sugars were running low at night so she stopped using it. She has been giving herself high dose s/s at home. Will continue this with scheduled lantus BID. UA shows pt has a UTI. Rocephin started in ER. She denies any further concerns at this time. - Review of Systems Constitutional: No Fever, No Chills Eyes: No Symptoms Ears, Nose, & Throat: No Symptoms Respiratory: No Cough, No Short Of Breath Cardiac: Chest Pain, Palpitations, No Edema, No Syncope Abdominal/Gastrointestinal: No Abdominal Pain, No Nausea, No Vomiting, No Diarrhea Genitourinary Symptoms: No Dysuria Musculoskeletal: No Back Pain, No Neck Pain Skin: No Rash Neurological: Parasthesia (right hand numbness with palpatation. ), No Dizziness, No Focal Weakness, No Sensory Changes Psychological: No Symptoms Endocrine: No Symptoms Hematologic/Lymphatic: No Symptoms Immunological/Allergic: No Symptoms Medications & Allergies Home Medications: Home Medication List Dapagliflozin/Metformin HCl [Xigduo Xr 10 mg-1,000 mg Tab] 1 tab PO DAILY 11/06/23 [History Confirmed 11/06/23] Non-Formulary Drug [Non-Formulary Item] 11/06/23 [History] Non-Formulary Drug [Non-Formulary Item] 20 units SQ DAILY 11/06/23 [History Confirmed 11/06/23] Allergies/Adverse Reactions: Allergies Allergy/AdvReac Type Severity Reaction Status Date / Time No Known Drug Allergies Allergy Verified 11/06/23 11:26 - Past Medical History Past Medical History: Yes Neurological History: Migraines ENT History: No Pertinent History Cardiac History: No Pertinent History Respiratory History: No Pertinent History Endocrine Medical History: Diabetes Type II Musculoskelatal History: No Pertinent History GI Medical History: Diverticulitis, Diverticulosis, Gallbladder Disease History: No Pertinent History Pyscho-Social History: No Pertinent History Reproductive Disorders: No Pertinent History Comment: URETHERAL DIVERTICULITIS-SEES A PHYSICIAN IN [facility][1] FOR THIS. - Female History Hx Last Menstrual Period: iud Are you now?: No - Past Surgical History Past Surgical History: Yes Neuro Surgical History: No Pertinent History Cardiac History: No Pertinent History Respiratory Surgery: No Pertinent History GI Surgical History: Cholecystectomy Genitourinary Surgical Hx: Other Musculskeletal Surgical Hx: No Pertinent History Female Surgical History: No Pertinent History Other Surgical History: urethral diverticulitis - Social History Smoking Status: Current every day smoker How long have you smoked: 30 yrs Exposure to second hand smoke: Yes Alcohol: None Drug Use: none Significant Family History: diabetes, hypertension - Physical Exam Vital Signs: Vital Signs - 24 hr Temp Pulse Pulse Resp BP BP Pulse Ox 11/06/23 15:10 68 22 98 11/06/23 15:00 63 14 89 L 11/06/23 14:51 99 11/06/23 14:50 66 16 99 11/06/23 14:40 62 14 100 11/06/23 14:30 66 16 100 11/06/23 14:20 67 9 L 99 11/06/23 14:10 65 9 L 99 11/06/23 14:00 60 18 99 11/06/23 13:50 67 17 98 11/06/23 13:40 71 11 L 98 11/06/23 13:32 79 21 98 11/06/23 13:01 75 13 153/72 11/06/23 13:00 77 25 H 91 L 11/06/23 12:50 81 18 98 11/06/23 12:40 76 23 98 11/06/23 12:33 78 16 99 11/06/23 12:05 73 16 99 11/06/23 12:00 79 13 113/74 98 11/06/23 11:31 77 16 134/68 99 11/06/23 11:16 97.3 F 82 18 170/96 99 11/06/23 11:10 82 11/06/23 11:02 81 19 170/96 99 General Appearance: no apparent distress, alert Neurologic Exam: alert, oriented x 3, cooperative, normal mood/affect, nml cerebellar function, nml station & gait, sensation nml, No motor deficits Eye Exam: PERRL/EOMI, eyes nml inspection Ears, Nose, Throat Exam: normal ENT inspection, TMs normal, pharynx normal, moist mucous membranes Neck Exam: normal inspection, non-tender, supple, full range of motion Respiratory Exam: normal breath sounds, lungs clear, No respiratory distress Cardiovascular Exam: regular rate/rhythm, normal heart sounds, normal peripheral pulses Gastrointestinal/Abdomen Exam: soft, normal bowel sounds, No tenderness, No mass Back Exam: normal inspection, normal range of motion, No CVA tenderness, No vertebral tenderness Extremity Exam: normal inspection, normal range of motion, pelvis stable Skin Exam: normal color, warm, dry, No rash Lymphatic Exam: No adenopathy Results - Labs Lab/Micro Results: Lab Results-Last 24 Hours 11/06/23 11/06/23 11/06/23 Range/Units 11:00 11:00 11:00 WBC 6.6 (4.0-10.5) x10^3/uL RBC 4.93 (4.1-5.4) x10^6/uL Hgb 14.3 (12.0-16.0) g/dL Hct 42.8 (35-47) % MCV 86.8 (78-100) fL MCH 29.0 (26-32) pg MCHC 33.4 (32-36) g/dL RDW 12.9 (11.5-14.0) % Plt Count 289 (150-450) x10^3/uL MPV 10.4 (7.5-11.0) fL Gran % 51.3 (36.0-66.0) % Immature Gran % (Auto) 0.2 (0.00-0.4) % Nucleat RBC Rel Count 0.0 (0.00-0.1) % Eos # (Auto) 0.10 (0-0.5) x10^3/uL Immature Gran # (Auto) 0.01 (0.00-0.03) x10^3u/L Absolute Lymphs (auto) 2.62 (1.0-4.6) x10^3/uL Absolute Monos (auto) 0.45 (0.0-1.3) x10^3/uL Absolute Nucleated RBC 0.00 (0.00-0.01) x10^3u/L Lymphocytes % 39.6 (24.0-44.0) % Monocytes % 6.8 (0.0-12.0) % Eosinophils % 1.5 (0.00-5.0) % Basophils % 0.6 (0.0-0.4) % Absolute Granulocytes 3.40 (1.4-6.9) x10^3/uL Basophils # 0.04 (0-0.4) x10^3/uL D-Dimer (0.0-0.50) mg/L Sodium 135 L (137-145) mmol/L Potassium 4.2 (3.5-5.1) mmol/L Chloride 105 (98-107) mmol/L Carbon Dioxide 22 (22-30) mmol/L Anion Gap 11.8 (5-15) MEQ/L BUN 16 (7-17) mg/dL Creatinine 0.64 (0.52-1.04) mg/dL Estimated GFR 108.9 ML/MIN Glucose 324 H (74-106) mg/dL Calcium 9.2 (8.4-10.2) mg/dL Total Bilirubin 0.60 (0.2-1.3) mg/dL AST 20 (14-36) U/L ALT 26 (0-35) U/L Alkaline Phosphatase 148 H (38-126) U/L Troponin I < 0.012 (0.000-0.034) ng/mL NT-Pro-B Natriuret Pep (<300) pg/mL Serum Total Protein 6.8 (6.3-8.2) g/dL Albumin 4.0 (3.5-5.0) g/dL Urine Color (Yellow) Urine Appearance (Clear) Urine pH (4.6-8.0) Ur Specific [place] (1.005-1.030) Urine Protein (Negative) Urine Glucose (UA) (Negative) mg/dL Urine Ketones (Negative) Urine Blood (Negative) Urine Nitrite (Negative) Urine Bilirubin (Negative) Urine Urobilinogen (0.2) mg/dL Ur Leukocyte Esterase (Negative) U Hyaline Cast (Auto) (0-2) /LPF Urine Microscopic RBC (0-5) /HPF Urine Microscopic WBC (0-5) /HPF Ur Epithelial Cells (None Seen) /HPF Urine Bacteria (None Seen) /HPF Urine Culture Reflexed (NO) 11/06/23 11/06/23 11/06/23 Range/Units 12:00 12:00 12:37 WBC (4.0-10.5) x10^3/uL RBC (4.1-5.4) x10^6/uL Hgb (12.0-16.0) g/dL Hct (35-47) % MCV (78-100) fL MCH (26-32) pg MCHC (32-36) g/dL RDW (11.5-14.0) % Plt Count (150-450) x10^3/uL MPV (7.5-11.0) fL Gran % (36.0-66.0) % Immature Gran % (Auto) (0.00-0.4) % Nucleat RBC Rel Count (0.00-0.1) % Eos # (Auto) (0-0.5) x10^3/uL Immature Gran # (Auto) (0.00-0.03) x10^3u/L Absolute Lymphs (auto) (1.0-4.6) x10^3/uL Absolute Monos (auto) (0.0-1.3) x10^3/uL Absolute Nucleated RBC (0.00-0.01) x10^3u/L Lymphocytes % (24.0-44.0) % Monocytes % (0.0-12.0) % Eosinophils % (0.00-5.0) % Basophils % (0.0-0.4) % Absolute Granulocytes (1.4-6.9) x10^3/uL Basophils # (0-0.4) x10^3/uL D-Dimer 0.27 (0.0-0.50) mg/L Sodium (137-145) mmol/L Potassium (3.5-5.1) mmol/L Chloride (98-107) mmol/L Carbon Dioxide (22-30) mmol/L Anion Gap (5-15) MEQ/L BUN (7-17) mg/dL Creatinine (0.52-1.04) mg/dL Estimated GFR ML/MIN Glucose (74-106) mg/dL Calcium (8.4-10.2) mg/dL Total Bilirubin (0.2-1.3) mg/dL AST (14-36) U/L ALT (0-35) U/L Alkaline Phosphatase (38-126) U/L Troponin I (0.000-0.034) ng/mL NT-Pro-B Natriuret Pep 147 (<300) pg/mL Serum Total Protein (6.3-8.2) g/dL Albumin (3.5-5.0) g/dL Urine Color Yellow (Yellow) Urine Appearance Cloudy A (Clear) Urine pH 5.0 (4.6-8.0) Ur Specific [place] >=1.030 A (1.005-1.030) Urine Protein Negative (Negative) Urine Glucose (UA) >=1000 A (Negative) mg/dL Urine Ketones Negative (Negative) Urine Blood Trace (Negative) Urine Nitrite Positive A (Negative) Urine Bilirubin Negative (Negative) Urine Urobilinogen 0.2 (0.2) mg/dL Ur Leukocyte Esterase Negative (Negative) U Hyaline Cast (Auto) NONE SEEN (0-2) /LPF Urine Microscopic RBC 0-2 (0-5) /HPF Urine Microscopic WBC 6-10 A (0-5) /HPF Ur Epithelial Cells Rare (None Seen) /HPF Urine Bacteria Many A (None Seen) /HPF Urine Culture Reflexed YES (NO) - Radiology Impressions Radiology Exams & Impressions: Radiology Procedures Category Date Time Status CHEST 1 VIEW (PORTABLE) Stat Exams 11/06/23 11:14 Taken - Other Procedures and Tests Respiratory Therapy 11/06/23 12:04 Respiratory Therapy Assessment DAILY Assessment/Plan (1) Chest pain Current Visit: Yes Status: Acute Assessment & Plan: - Chest XR pending - EKG - 2:2 anxiety - Tele - TSH, lipid panel - Trop x1 negative- trend Code(s): R07.9 - CHEST PAIN, UNSPECIFIED (2) Heart palpitations Current Visit: Yes Status: Acute Assessment & Plan: - tele - 2:2 anxiety, breathing treatment - electrolytes stable- labs reviewed - Xoponex breathing tx q4 prn as duoneb exacerbated her palpations. Code(s): R00.2 - PALPITATIONS (3) Anxiety Current Visit: Yes Status: Acute Assessment & Plan: - xanax gave in ER - Hydroxyzine PRN Code(s): F41.9 - ANXIETY DISORDER, UNSPECIFIED (4) Shortness of breath Current Visit: Yes Status: Acute Assessment & Plan: - Chest XR pending - 2:2 anxiety - Duoneb gave in ER - RA 99% - changed duoneb to Xopenex Q 4 prn for better tolerability and fewer episode of transient tachycardia. Code(s): R06.02 - SHORTNESS OF BREATH (5) UTI (urinary tract infection) Current Visit: Yes Status: Acute Onset Date: ~09/23/18 Qualifiers: Urinary tract infection type: acute cystitis Hematuria presence: without hematuria Qualified Code(s): N30.00 - Acute cystitis without hematuria Assessment & Plan: - Rocephin started in ER - UC pending Code(s): N39.0 - URINARY TRACT INFECTION, SITE NOT SPECIFIED (6) Smoker Current Visit: Yes Status: Acute Assessment & Plan: - advised cessation - Hold off on nicotine patch due to palpitations Code(s): F17.200 - NICOTINE DEPENDENCE, UNSPECIFIED, UNCOMPLICATED (7) Diabetes Current Visit: No Status: Chronic Qualifiers: Diabetes mellitus type: type 2 Diabetes mellitus long term care pharmacist insulin use: with long term care pharmacist use Diabetes mellitus complication status: without complication Qualified Code(s): E11.9 - Type 2 diabetes mellitus without complications; Z79.4 - watermelon harvesting supervisor (current) use of insulin Assessment & Plan: - high dose s/s as she was taking at home, with lantus BID - accuchecks ac/hs - carb consistent diet VTE: Lovenox PPI: Protonix Next of kin: Sadaf Marin [phone] D/c plan: 1-2 days Code status: full Code(s): E11.9 - TYPE 2 DIABETES MELLITUS WITHOUT COMPLICATIONS
[2023-11-06] MEDS ORDERED: DUONEB 0.5-3 MG/3 ml Neb IH PRN (15:57)
[2023-11-06] MEDS ORDERED: TYLENOL 325 MG PO PRN (16:00)
[2023-11-06] MEDS: ATARAX 25 MG PO PRN ×2 (17:13→23:19)
[2023-11-06] MEDS: HUMALOG SQ PRN ×2 (17:13→21:19)
--- NOTE | 2023-11-06 20:13 | XRAY ---
Indication: Chest pain. Comparison: November 14, 2021 Portable chest demonstrates minimal left base subsegmental atelectasis/scarring. Remaining heart, lungs, and bony thorax unremarkable. No new/acute findings.
[2023-11-06] MEDS ORDERED: Lantus Insulin SQ SCH (22:00)
[2023-11-07 06:04] LABS: Hematocrit 40.8 % (35-47); Hemoglobin 13.3 g/dL (12.0-16.0); Mean Cell Volume 88.5 fL (78-100); Mean Corpuscular Hemoglobin 28.9 pg (26-32); Mean Corpuscular Hgb Concent. 32.6 g/dL (32-36); Platelet Count 240 x10^3/uL (150-450); Red Blood Count 4.61 x10^6/uL (4.1-5.4); White Blood Count 6.1 x10^3/uL (4.0-10.5)
[2023-11-07 06:48] LABS: ALBUMIN 3.6 g/dL (3.5-5.0); BILIRUBIN,TOTAL 0.6 mg/dL (0.2-1.3); Calcium 8.9 mg/dL (8.4-10.2); Creatinine 1 0.52 mg/dL (0.52-1.04); EST GLOMERULAR FILTRATION RATE 114.5 ML/MIN; Potassium 4.2 mmol/L (3.5-5.1); Risk Ratio 4.1; TSH, 3RD Generation 2.84 mIU/L (0.47-4.68); Total Protein 6.3 g/dL (6.3-8.2)
[2023-11-07 07:33] VITALS: BP 101/49; RESP 16; TEMP 97.6; O2SAT 98
[2023-11-07 08:00] VITALS: PULSE 65
[2023-11-07] MEDS: HUMALOG SQ PRN (08:29)
--- NOTE | 2023-11-07 09:13 | PCM.DS ---
Discharge Summary Date of Admission: 11/06/23 15:30 Date of Discharge: 11/07/23 Admitting Physician: CHRISTINE CAPPS MD Primary Care Provider: GERRY GOLDMAN Allergies Allergies No Known Drug Allergies Allergy (Verified 11/06/23 11:26) Hospital Summary - Hospital Course Hospital Course: 11/07/23 is a 48 year old female with PMHX of type II DM, diverticulitis, migranes, and daily smoker. She presented in ER today for chest discomfort, heart palpitations. Pt reports this started 2h before presentation while she was standing at work. Pt states she has never felt palpitations before. Pt states her chest feels tight diffusely, denies any actual pain, reports she feels like it is difficult for her to take a deep breath. Pt denies pain radiating into back/shoulder/jaw, denies n/v, denies diaphoresis/fevers. Pt does report hx of anxiety in the past w/ a similar episode occurring about 10yrs ago. Xanax gave in ER. Will start hydroxyzine. Trop X1 negative. She stopped using her insulin pump 2 weeks ago. Glucose level on admission is 324. She has an upcoming appointment with endocrinology, Dr. Bailey. She reports her blood sugars were running low at night so she stopped using it. She has been giving herself high dose s/s at home. Will continue this with scheduled lantus BID. UA shows pt has a UTI. Rocephin started in ER. She denies any further concerns at this time. 11/08/23 Pt resting in bed. She continues to have intermittent palpitations with dyspnea. Trop x3 negative. She is RA 98%. Chest XR negative. Labs are nonconcerning. A1C 9.63, she has an upcoming appointment with endocrinology. She reports she would like to f/u with cardiology in [place]. Will call her tomorrow with date and time of appointment. She will need and OP stress test. She also needs to f/u with her PCP this week. She denies any further concerns at this time. - Vitals & Intake/Output Vital Signs: Vital Signs Temperature 97.6 F 11/07/23 07:33 Pulse Rate 65 11/07/23 07:55 Respiratory Rate 16 11/07/23 07:55 Blood Pressure 101/49 11/07/23 07:33 O2 Sat by Pulse Oximetry 98 11/07/23 07:55 Intake & Output: Intake & Output 11/04/23 11/05/23 11/06/23 11/07/23 11:59 11:59 11:59 11:59 Intake Total 1540 Balance 1540 Weight 105.233 kg 103.1 kg - Lab Result Diagrams: 11/07/23 06:05 11/07/23 06:05 Lab Results-Last 24 Hrs: Lab Results-Last 24 Hours 11/06/23 11/06/23 11/06/23 Range/Units 11:00 11:00 11:00 WBC 6.6 (4.0-10.5) x10^3/uL RBC 4.93 (4.1-5.4) x10^6/uL Hgb 14.3 (12.0-16.0) g/dL Hct 42.8 (35-47) % MCV 86.8 (78-100) fL MCH 29.0 (26-32) pg MCHC 33.4 (32-36) g/dL RDW 12.9 (11.5-14.0) % Plt Count 289 (150-450) x10^3/uL MPV 10.4 (7.5-11.0) fL Gran % 51.3 (36.0-66.0) % Immature Gran % (Auto) 0.2 (0.00-0.4) % Nucleat RBC Rel Count 0.0 (0.00-0.1) % Eos # (Auto) 0.10 (0-0.5) x10^3/uL Immature Gran # (Auto) 0.01 (0.00-0.03) x10^3u/L Absolute Lymphs (auto) 2.62 (1.0-4.6) x10^3/uL Absolute Monos (auto) 0.45 (0.0-1.3) x10^3/uL Absolute Nucleated RBC 0.00 (0.00-0.01) x10^3u/L Lymphocytes % 39.6 (24.0-44.0) % Monocytes % 6.8 (0.0-12.0) % Eosinophils % 1.5 (0.00-5.0) % Basophils % 0.6 (0.0-0.4) % Absolute Granulocytes 3.40 (1.4-6.9) x10^3/uL Basophils # 0.04 (0-0.4) x10^3/uL D-Dimer (0.0-0.50) mg/L Sodium 135 L (137-145) mmol/L Potassium 4.2 (3.5-5.1) mmol/L Chloride 105 (98-107) mmol/L Carbon Dioxide 22 (22-30) mmol/L Anion Gap 11.8 (5-15) MEQ/L BUN 16 (7-17) mg/dL Creatinine 0.64 (0.52-1.04) mg/dL Estimated GFR 108.9 ML/MIN Glucose 324 H (74-106) mg/dL POC Glucometer (74 to 106) mg/dL Hemoglobin A1c (4.5-6.0) % Calcium 9.2 (8.4-10.2) mg/dL Total Bilirubin 0.60 (0.2-1.3) mg/dL AST 20 (14-36) U/L ALT 26 (0-35) U/L Alkaline Phosphatase 148 H (38-126) U/L Troponin I < 0.012 (0.000-0.034) ng/mL NT-Pro-B Natriuret Pep (<300) pg/mL Serum Total Protein 6.8 (6.3-8.2) g/dL Albumin 4.0 (3.5-5.0) g/dL Triglycerides (30-150) mg/dL Cholesterol (50-200) mg/dL LDL Cholesterol (30-100) mg/dL HDL Cholesterol (40-60) mg/dL Heart Disease Risk Ratio TSH 3rd Generation (0.47-4.68) mIU/L Urine Color (Yellow) Urine Appearance (Clear) Urine pH (4.6-8.0) Ur Specific [place] (1.005-1.030) Urine Protein (Negative) Urine Glucose (UA) (Negative) mg/dL Urine Ketones (Negative) Urine Blood (Negative) Urine Nitrite (Negative) Urine Bilirubin (Negative) Urine Urobilinogen (0.2) mg/dL Ur Leukocyte Esterase (Negative) U Hyaline Cast (Auto) (0-2) /LPF Urine Microscopic RBC (0-5) /HPF Urine Microscopic WBC (0-5) /HPF Ur Epithelial Cells (None Seen) /HPF Urine Bacteria (None Seen) /HPF Urine Culture Reflexed (NO) 11/06/23 11/06/23 11/06/23 Range/Units 12:00 12:00 12:37 WBC (4.0-10.5) x10^3/uL RBC (4.1-5.4) x10^6/uL Hgb (12.0-16.0) g/dL Hct (35-47) % MCV (78-100) fL MCH (26-32) pg MCHC (32-36) g/dL RDW (11.5-14.0) % Plt Count (150-450) x10^3/uL MPV (7.5-11.0) fL Gran % (36.0-66.0) % Immature Gran % (Auto) (0.00-0.4) % Nucleat RBC Rel Count (0.00-0.1) % Eos # (Auto) (0-0.5) x10^3/uL Immature Gran # (Auto) (0.00-0.03) x10^3u/L Absolute Lymphs (auto) (1.0-4.6) x10^3/uL Absolute Monos (auto) (0.0-1.3) x10^3/uL Absolute Nucleated RBC (0.00-0.01) x10^3u/L Lymphocytes % (24.0-44.0) % Monocytes % (0.0-12.0) % Eosinophils % (0.00-5.0) % Basophils % (0.0-0.4) % Absolute Granulocytes (1.4-6.9) x10^3/uL Basophils # (0-0.4) x10^3/uL D-Dimer 0.27 (0.0-0.50) mg/L Sodium (137-145) mmol/L Potassium (3.5-5.1) mmol/L Chloride (98-107) mmol/L Carbon Dioxide (22-30) mmol/L Anion Gap (5-15) MEQ/L BUN (7-17) mg/dL Creatinine (0.52-1.04) mg/dL Estimated GFR ML/MIN Glucose (74-106) mg/dL POC Glucometer (74 to 106) mg/dL Hemoglobin A1c (4.5-6.0) % Calcium (8.4-10.2) mg/dL Total Bilirubin (0.2-1.3) mg/dL AST (14-36) U/L ALT (0-35) U/L Alkaline Phosphatase (38-126) U/L Troponin I (0.000-0.034) ng/mL NT-Pro-B Natriuret Pep 147 (<300) pg/mL Serum Total Protein (6.3-8.2) g/dL Albumin (3.5-5.0) g/dL Triglycerides (30-150) mg/dL Cholesterol (50-200) mg/dL LDL Cholesterol (30-100) mg/dL HDL Cholesterol (40-60) mg/dL Heart Disease Risk Ratio TSH 3rd Generation (0.47-4.68) mIU/L Urine Color Yellow (Yellow) Urine Appearance Cloudy A (Clear) Urine pH 5.0 (4.6-8.0) Ur Specific [place] >=1.030 A (1.005-1.030) Urine Protein Negative (Negative) Urine Glucose (UA) >=1000 A (Negative) mg/dL Urine Ketones Negative (Negative) Urine Blood Trace (Negative) Urine Nitrite Positive A (Negative) Urine Bilirubin Negative (Negative) Urine Urobilinogen 0.2 (0.2) mg/dL Ur Leukocyte Esterase Negative (Negative) U Hyaline Cast (Auto) NONE SEEN (0-2) /LPF Urine Microscopic RBC 0-2 (0-5) /HPF Urine Microscopic WBC 6-10 A (0-5) /HPF Ur Epithelial Cells Rare (None Seen) /HPF Urine Bacteria Many A (None Seen) /HPF Urine Culture Reflexed YES (NO) 11/06/23 11/06/23 11/06/23 Range/Units 15:05 16:31 19:30 WBC (4.0-10.5) x10^3/uL RBC (4.1-5.4) x10^6/uL Hgb (12.0-16.0) g/dL Hct (35-47) % MCV (78-100) fL MCH (26-32) pg MCHC (32-36) g/dL RDW (11.5-14.0) % Plt Count (150-450) x10^3/uL MPV (7.5-11.0) fL Gran % (36.0-66.0) % Immature Gran % (Auto) (0.00-0.4) % Nucleat RBC Rel Count (0.00-0.1) % Eos # (Auto) (0-0.5) x10^3/uL Immature Gran # (Auto) (0.00-0.03) x10^3u/L Absolute Lymphs (auto) (1.0-4.6) x10^3/uL Absolute Monos (auto) (0.0-1.3) x10^3/uL Absolute Nucleated RBC (0.00-0.01) x10^3u/L Lymphocytes % (24.0-44.0) % Monocytes % (0.0-12.0) % Eosinophils % (0.00-5.0) % Basophils % (0.0-0.4) % Absolute Granulocytes (1.4-6.9) x10^3/uL Basophils # (0-0.4) x10^3/uL D-Dimer (0.0-0.50) mg/L Sodium (137-145) mmol/L Potassium (3.5-5.1) mmol/L Chloride (98-107) mmol/L Carbon Dioxide (22-30) mmol/L Anion Gap (5-15) MEQ/L BUN (7-17) mg/dL Creatinine (0.52-1.04) mg/dL Estimated GFR ML/MIN Glucose (74-106) mg/dL POC Glucometer 318 H (74 to 106) mg/dL Hemoglobin A1c (4.5-6.0) % Calcium (8.4-10.2) mg/dL Total Bilirubin (0.2-1.3) mg/dL AST (14-36) U/L ALT (0-35) U/L Alkaline Phosphatase (38-126) U/L Troponin I < 0.012 < 0.012 (0.000-0.034) ng/mL NT-Pro-B Natriuret Pep (<300) pg/mL Serum Total Protein (6.3-8.2) g/dL Albumin (3.5-5.0) g/dL Triglycerides (30-150) mg/dL Cholesterol (50-200) mg/dL LDL Cholesterol (30-100) mg/dL HDL Cholesterol (40-60) mg/dL Heart Disease Risk Ratio TSH 3rd Generation (0.47-4.68) mIU/L Urine Color (Yellow) Urine Appearance (Clear) Urine pH (4.6-8.0) Ur Specific [place] (1.005-1.030) Urine Protein (Negative) Urine Glucose (UA) (Negative) mg/dL Urine Ketones (Negative) Urine Blood (Negative) Urine Nitrite (Negative) Urine Bilirubin (Negative) Urine Urobilinogen (0.2) mg/dL Ur Leukocyte Esterase (Negative) U Hyaline Cast (Auto) (0-2) /LPF Urine Microscopic RBC (0-5) /HPF Urine Microscopic WBC (0-5) /HPF Ur Epithelial Cells (None Seen) /HPF Urine Bacteria (None Seen) /HPF Urine Culture Reflexed (NO) 11/06/23 11/07/23 11/07/23 Range/Units 20:50 06:05 06:05 WBC 6.1 (4.0-10.5) x10^3/uL RBC 4.61 (4.1-5.4) x10^6/uL Hgb 13.3 (12.0-16.0) g/dL Hct 40.8 (35-47) % MCV 88.5 (78-100) fL MCH 28.9 (26-32) pg MCHC 32.6 (32-36) g/dL RDW 13.0 (11.5-14.0) % Plt Count 240 (150-450) x10^3/uL MPV 10.0 (7.5-11.0) fL Gran % (36.0-66.0) % Immature Gran % (Auto) (0.00-0.4) % Nucleat RBC Rel Count (0.00-0.1) % Eos # (Auto) (0-0.5) x10^3/uL Immature Gran # (Auto) (0.00-0.03) x10^3u/L Absolute Lymphs (auto) (1.0-4.6) x10^3/uL Absolute Monos (auto) (0.0-1.3) x10^3/uL Absolute Nucleated RBC (0.00-0.01) x10^3u/L Lymphocytes % (24.0-44.0) % Monocytes % (0.0-12.0) % Eosinophils % (0.00-5.0) % Basophils % (0.0-0.4) % Absolute Granulocytes (1.4-6.9) x10^3/uL Basophils # (0-0.4) x10^3/uL D-Dimer (0.0-0.50) mg/L Sodium 138 (137-145) mmol/L Potassium 4.2 (3.5-5.1) mmol/L Chloride 110 H (98-107) mmol/L Carbon Dioxide 23 (22-30) mmol/L Anion Gap 9.0 (5-15) MEQ/L BUN 13 (7-17) mg/dL Creatinine 0.52 (0.52-1.04) mg/dL Estimated GFR 114.5 ML/MIN Glucose 209 H (74-106) mg/dL POC Glucometer 343 H (74 to 106) mg/dL Hemoglobin A1c (4.5-6.0) % Calcium 8.9 (8.4-10.2) mg/dL Total Bilirubin 0.60 (0.2-1.3) mg/dL AST 22 (14-36) U/L ALT 26 (0-35) U/L Alkaline Phosphatase 104 (38-126) U/L Troponin I (0.000-0.034) ng/mL NT-Pro-B Natriuret Pep (<300) pg/mL Serum Total Protein 6.3 (6.3-8.2) g/dL Albumin 3.6 (3.5-5.0) g/dL Triglycerides 59 (30-150) mg/dL Cholesterol 170 (50-200) mg/dL LDL Cholesterol 111 H (30-100) mg/dL HDL Cholesterol 42 (40-60) mg/dL Heart Disease Risk Ratio 4.1 TSH 3rd Generation 2.840 (0.47-4.68) mIU/L Urine Color (Yellow) Urine Appearance (Clear) Urine pH (4.6-8.0) Ur Specific [place] (1.005-1.030) Urine Protein (Negative) Urine Glucose (UA) (Negative) mg/dL Urine Ketones (Negative) Urine Blood (Negative) Urine Nitrite (Negative) Urine Bilirubin (Negative) Urine Urobilinogen (0.2) mg/dL Ur Leukocyte Esterase (Negative) U Hyaline Cast (Auto) (0-2) /LPF Urine Microscopic RBC (0-5) /HPF Urine Microscopic WBC (0-5) /HPF Ur Epithelial Cells (None Seen) /HPF Urine Bacteria (None Seen) /HPF Urine Culture Reflexed (NO) 11/07/23 11/07/23 Range/Units 06:05 07:25 WBC (4.0-10.5) x10^3/uL RBC (4.1-5.4) x10^6/uL Hgb (12.0-16.0) g/dL Hct (35-47) % MCV (78-100) fL MCH (26-32) pg MCHC (32-36) g/dL RDW (11.5-14.0) % Plt Count (150-450) x10^3/uL MPV (7.5-11.0) fL Gran % (36.0-66.0) % Immature Gran % (Auto) (0.00-0.4) % Nucleat RBC Rel Count (0.00-0.1) % Eos # (Auto) (0-0.5) x10^3/uL Immature Gran # (Auto) (0.00-0.03) x10^3u/L Absolute Lymphs (auto) (1.0-4.6) x10^3/uL Absolute Monos (auto) (0.0-1.3) x10^3/uL Absolute Nucleated RBC (0.00-0.01) x10^3u/L Lymphocytes % (24.0-44.0) % Monocytes % (0.0-12.0) % Eosinophils % (0.00-5.0) % Basophils % (0.0-0.4) % Absolute Granulocytes (1.4-6.9) x10^3/uL Basophils # (0-0.4) x10^3/uL D-Dimer (0.0-0.50) mg/L Sodium (137-145) mmol/L Potassium (3.5-5.1) mmol/L Chloride (98-107) mmol/L Carbon Dioxide (22-30) mmol/L Anion Gap (5-15) MEQ/L BUN (7-17) mg/dL Creatinine (0.52-1.04) mg/dL Estimated GFR ML/MIN Glucose (74-106) mg/dL POC Glucometer 226 H (74 to 106) mg/dL Hemoglobin A1c 9.63 H (4.5-6.0) % Calcium (8.4-10.2) mg/dL Total Bilirubin (0.2-1.3) mg/dL AST (14-36) U/L ALT (0-35) U/L Alkaline Phosphatase (38-126) U/L Troponin I (0.000-0.034) ng/mL NT-Pro-B Natriuret Pep (<300) pg/mL Serum Total Protein (6.3-8.2) g/dL Albumin (3.5-5.0) g/dL Triglycerides (30-150) mg/dL Cholesterol (50-200) mg/dL LDL Cholesterol (30-100) mg/dL HDL Cholesterol (40-60) mg/dL Heart Disease Risk Ratio TSH 3rd Generation (0.47-4.68) mIU/L Urine Color (Yellow) Urine Appearance (Clear) Urine pH (4.6-8.0) Ur Specific [place] (1.005-1.030) Urine Protein (Negative) Urine Glucose (UA) (Negative) mg/dL Urine Ketones (Negative) Urine Blood (Negative) Urine Nitrite (Negative) Urine Bilirubin (Negative) Urine Urobilinogen (0.2) mg/dL Ur Leukocyte Esterase (Negative) U Hyaline Cast (Auto) (0-2) /LPF Urine Microscopic RBC (0-5) /HPF Urine Microscopic WBC (0-5) /HPF Ur Epithelial Cells (None Seen) /HPF Urine Bacteria (None Seen) /HPF Urine Culture Reflexed (NO) Micro Results-Entire Visit: Microbiology 11/06/23 12:37 Urine Culture - Preliminary Clean Catch Midstream GRAM NEGATIVE ID AND SENSITIVITY PENDING Accuchecks Date 11/07/23 Date 11/06/23 Date 11/06/23 Time 07:32 Time 21:00 Time 16:33 - Radiology Exams Ordered Rad Exams-Entire Visit: Radiology Procedures Category Date Time Status CHEST 1 VIEW (PORTABLE) Stat Exams 11/06/23 11:14 Completed - Procedures and Test Procedures and Tests throughout Hospitalization: Therapy Orders & Screens 11/06/23 12:04 Respiratory Therapy Assessment DAILY Comment: 11/06/23 15:57 Oxygen NASAL CANNULA 2 lpm Comment: Diagnosis: anxiety Discharge Exam General Appearance: no apparent distress, alert Neurologic Exam: alert, oriented x 3, cooperative, normal mood/affect, nml cerebellar function, sensation nml, No motor deficits Eye Exam: PERRL, EOMI, eyes nml inspection Ears, Nose, Throat Exam: normal ENT inspection, pharynx normal, moist mucous membranes Neck Exam: normal inspection, non-tender, supple, full range of motion Respiratory Exam: normal breath sounds, lungs clear, No respiratory distress Cardiovascular Exam: regular rate/rhythm, normal heart sounds Gastrointestinal/Abdomen Exam: soft, No tenderness, No mass Pelvic Exam: deferred Rectal Exam: deferred Back Exam: normal inspection, normal range of motion, No CVA tenderness, No vertebral tenderness Extremity Exam: normal inspection, normal range of motion Skin Exam: normal color, warm, dry Final Diagnosis/Problem List - Final Discharge Diagnosis/Problem (1) Chest pain Current Visit: Yes Status: Acute Code(s): R07.9 - CHEST PAIN, UNSPECIFIED (2) Heart palpitations Current Visit: Yes Status: Acute Code(s): R00.2 - PALPITATIONS (3) Anxiety Current Visit: Yes Status: Acute Code(s): F41.9 - ANXIETY DISORDER, UNSPECIFIED (4) Shortness of breath Current Visit: Yes Status: Acute Code(s): R06.02 - SHORTNESS OF BREATH (5) UTI (urinary tract infection) Current Visit: Yes Status: Acute Onset Date: ~09/23/18 Code(s): N39.0 - URINARY TRACT INFECTION, SITE NOT SPECIFIED (6) Smoker Current Visit: Yes Status: Acute Code(s): F17.200 - NICOTINE DEPENDENCE, UNSPECIFIED, UNCOMPLICATED (7) Diabetes Current Visit: No Status: Chronic Assessment & Plan: (1) Chest pain Current Visit: Yes Status: Acute Assessment & Plan: - Chest XR pending - EKG - 2:2 anxiety - Tele - TSH, lipid panel - Trop x1 negative- trend 11/07 - Trop x3 negative - F/u with cardiology OP - will need OP stress test- cardiology to order Code(s): R07.9 - CHEST PAIN, UNSPECIFIED (2) Heart palpitations Current Visit: Yes Status: Acute Assessment & Plan: - tele - 2:2 anxiety, breathing treatment - electrolytes stable- labs reviewed - Xoponex breathing tx q4 prn as duoneb exacerbated her palpations. 11/07 - + intermittent palpitations seen on tele - F/U with cardiology - - electrolytes stable- labs reviewed Code(s): R00.2 - PALPITATIONS (3) Anxiety Current Visit: Yes Status: Acute Assessment & Plan: - xanax gave in ER - Hydroxyzine PRN Code(s): F41.9 - ANXIETY DISORDER, UNSPECIFIED (4) Shortness of breath Current Visit: Yes Status: Acute Assessment & Plan: - Chest XR- negative for acute findings - 2:2 anxiety - Duoneb gave in ER - RA 99% - changed duoneb to Xopenex Q 4 prn for better tolerability - 11/07 - lungs CTA - RA Code(s): R06.02 - SHORTNESS OF BREATH (5) UTI (urinary tract infection) Current Visit: Yes Status: Acute Onset Date: ~09/23/18 Qualifiers: Urinary tract infection type: acute cystitis Hematuria presence: without hematuria Qualified Code(s): N30.00 - Acute cystitis without hematuria Assessment & Plan: - Rocephin started in ER - UC pending 11/07 -OP antibiotics Code(s): N39.0 - URINARY TRACT INFECTION, SITE NOT SPECIFIED (6) Smoker Current Visit: Yes Status: Acute Assessment & Plan: - advised cessation - Hold off on nicotine patch due to palpitations Code(s): F17.200 - NICOTINE DEPENDENCE, UNSPECIFIED, UNCOMPLICATED (7) Diabetes Current Visit: No Status: Chronic Qualifiers: Diabetes mellitus type: type 2 Diabetes mellitus [facility] insulin use: with termination clerk use Diabetes mellitus complication status: without complication Qualified Code(s): E11.9 - Type 2 diabetes mellitus without complications; Z79.4 - long-term (current) use of insulin Assessment & Plan: - high dose s/s as she was taking at home, with lantus BID - accuchecks ac/hs - carb consistent diet 11/07 - A1C 9.63 - Per guideline PCP/ endocrinology to consider statin - advised diet and exercise control for lipids Code(s): E11.9 - TYPE 2 DIABETES MELLITUS WITHOUT COMPLICATIONS - Discharge Discharge Date: 11/07/23 Disposition: Home, Self-Care Condition: Stable Prescriptions: New Cefuroxime Axetil 500 mg [Ceftin 500 mg] 500 mg PO BID 5 Days #10 tablet hydrOXYzine pamoate [Vistaril] 25 mg PO BID PRN 7 Days #14 cap PRN Reason: Anxiety Continue Dapagliflozin/Metformin HCl [Xigduo Xr 10 mg-1,000 mg Tab] 1 tab PO DAILY Non-Formulary Drug [Non-Formulary Item] 20 units SQ DAILY Non-Formulary Drug [Non-Formulary Item] 1 - 100 unit SQ ACHS Additional Instructions: Please call and make an appointment with Dr. Goldman this week. We will call you with cardiology appointment tomorrow. Please follow up with endocrinology as scheduled. Follow up with: GERRY GOLDMAN MD [Primary Care Provider] -
[2023-11-07] MEDS ORDERED: ENOXAPARIN SODIUM SQ SCH (10:00)
[2023-11-07] MEDS ORDERED: Protonix 20MG Tablet PO SCH (10:00)
[2023-11-07] MEDS ORDERED: ROCEPHIN 1 Gm-D5w 50 ml Bag** 1 G/50 ML IVPB IV SCH (10:00)
[2023-11-07] MEDS ORDERED: PHARMACY DOSING REQUEST MC ONE (10:25)
== END 2023-11-07 09:55 | disposition home or self-care (01) ==
LOC: ED 11:02 → MED SURG 15:30
PROVIDERS: ADMIT Internal Medicine; ATTEND Internal Medicine
DX: R07.9 Chest pain, unspecified (principal); R00.2 Palpitations; F41.9 Anxiety disorder, unspecified; R06.02 Shortness of breath; N39.0 Urinary tract infection, site not specified; F17.200 Nicotine dependence, unspecified, uncomplicated; E11.9 Type 2 diabetes mellitus without complications; Z79.4 Long term (current) use of insulin; Z79.899 Other long term (current) drug therapy; Z20.828 Contact with and (suspected) exposure to other viral communicable diseases
CPT/HCPCS: 36000; 36415; 71045; 80053; 80061; 81001; 82947; 83036; 83721; 83880; 84443; 84484; 85025; 85027; 85379; 87077; 87086; 87186; 93005; 93268; 94640; 94760; 96360; 96365; 99285; G0378; Q3014; J0696; J1817; A9270-GY